=== PATIENT | female | born 1970 ===

== ENCOUNTER 2024-02-05 12:48 | Emergency (ER) | payer MEDICAID, SELFPAY ==
--- NOTE | ~2024-02-05 | XR_ITS ---
EXAMINATION: XR KNEE, RIGHT CLINICAL INFORMATION: Status post amputation. COMPARISON: None available. TECHNIQUE: Four views of the right knee. FINDINGS: There is amputation of right knee below the proximal tibia and fibula with a good appearing stump. No gas or soft tissue swelling seen. There is degenerative arthritic changes in lateral and patellofemoral compartments. No loose bodies or joint effusion seen. XR/XR knee RT 2V IMPRESSION: 1. Status post amputation below the proximal tibia and fibula with good appearing stump. No gas or soft tissue swelling seen. 2. 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
--- NOTE | 2024-02-05 13:06 | ED.EXTPRO ---
HPI - Extremity Problem General Chief complaint: General Medical Stated complaint: LEG PAIN, RECENT AMP. 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 She was supposed to go to her PCP today she notes she did hit her amputation site in the tub today and it was bleeding. She denies head strike she was in the ambulance and the bumps caused the pain to be severe. No fevers, purulent drainage, redness. MD Complaint: extremity pain Onset (ago): hour(s) (few) Pain Consistency: constant Location: right and lower extremity Quality: stabbing, sharp and constant Radiation: distal Relieving factors: nothing Exacerbating factors: nothing Associated symptoms: denies other symptoms Context: other (recent BKA but fell today) Related Data Allergies Allergy/AdvReac Type Severity Reaction Status Date / Time No Known Allergies Allergy Unknown Unverified 08/02/20 16:58 Review of Systems Review of Systems: Constitutional : No Fever, No Chills ENT/Mouth : No Ear Pain, No Hoarseness, No sore throat Eyes: No Eye Pain, No Swelling, No Redness, No Foreign Body Cardiovascular : No Chest Pain, No SOB Respiratory : No Cough, No Dyspnea Gastrointestinal : No Nausea, No Vomiting, No Diarrhea, No abdominal Pain Genitourinary : No Dysuria, No Hematuria Musculoskeletal : positive joint pain, No Myalgias, No Joint Swelling Skin : No Skin lacerations, No rash Neuro : No Weakness, No Numbness, No Loss of Consciousness, No Dizziness, No Headache All other systems reviewed and are negative [facility] Past Medical History Attestation statement: The following information was validated with the patient. Medical History (Updated 02/05/24 @ 14:56 by Olena Gamez DO) HTN (hypertension) DVT (deep vein thrombosis) in PVD (peripheral vascular disease) Diabetes Surgical History (Updated 02/05/24 @ 13:23 by Olena Gamez DO) Hx of BKA Social History Social History (Updated 02/05/24 @ 13:23 by Olena Gamez DO) Patient Tobacco Use Status: Tobacco use Unknown Advance Directives: Yes Advance Directives Information Provided: Yes Advance Directives on File: No Physical Exam Vital Signs: Vital Signs: Last Vital Signs Temp 98.0 F 02/05/24 14:13 Pulse 74 02/05/24 14:13 Resp 21 H 02/05/24 14:13 BP 108/64 02/05/24 14:13 Pulse Ox 99 02/05/24 14:13 O2 Del Method Room Air 02/05/24 14:13 BMI result Body Mass Index 44.1 Appearance: Alert. Oriented X3. wailing in pain moderate acute distress. Eyes: Pupils equal, round and reactive to light. ENT: Pharynx normal. Neck: Normal inspection. Neck supple. CVS: Normal heart rate and rhythm. Pulses normal. Respiratory: No respiratory distress. Breath sounds normal. Abdomen: Soft and nontender. Skin: Skin warm and dry. Normal skin color. Normal skin turgor. Extremities: No lower extremity edema. R BKA area no active bleedind no purulence no warmth or signs of infection contusion on distal R thigh incision is intact there is scant area of bleeding at middle of incision but there is no dehiscence Neuro: Oriented X 3. No motor deficit. No sensory deficit. Course Course Course Narrative: pain improved labs reassuring elevated plts but on xarelto Medications Administered Discontinued Medications Generic Name Dose Route Start Last Admin Trade Name Freq PRN Reason Stop Dose Admin Hydromorphone HCl 2 mg 02/05/24 12:52 02/05/24 13:07 Hydromorphone Hcl 2 Mg/Ml Vial IM 02/05/24 12:53 2 mg ONCE ONE Administration Protocol Medical Decision Making Medical Decision Making [facility] Narrative: 53 yo female with PMH of DM, PVD, HTN, DVT on xarelto s/p R BKA here with pain at BKA site after fall and isolated injury to the stump she denies headstrike has no headaches or neck pain will need labs, xray for trauma, IM dilaudid for pain. Differential Diagnosis Differential Diagnoses: The differential diagnosis associated with the presentation includes fracture, contusion, phantom limb pain Admission/Observation Consideration of admission/observation: Escalation of care including admission/observation considered feels better no dehiscence or fracture stable for DC Lab Data [facility] Lab Attestation statement: I reviewed the patient's lab results. 02/05/24 13:27 02/05/24 13:27 Labs: Lab Results 02/05/24 Range/Units 13:27 WBC 8.7 (4.8-10.8) X10*3/uL RBC 5.24 (4.20-5.50) X10*6/uL Hgb 11.8 L (12.0-16.0) g/dl Hct 38.7 (37.0-47.0) % MCV 73.9 L (80.0-98.0) fL MCH 22.5 L (27.0-33.0) pg MCHC 30.5 L (31.0-35.0) g/dl RDW 21.2 H (11.0-16.0) % Plt Count 500 H (160-400) X10*3/uL MPV 8.1 L (9.4-12.3) fL Immature Gran % (Auto) 0.2 (0.0-0.4) % Neut % (Auto) 75.1 H (45-73) % Lymph % (Auto) 19.3 L (20-40) % [place] % (Auto) 4.5 (2-11) % Eos % (Auto) 0.1 (0-4) % Baso % (Auto) 0.8 (0-2) % Lymph # (Auto) 1.7 (1.2-4.9) X10*3/uL [place] # (Auto) 0.4 (0.1-1.2) X10*3/uL Eos # (Auto) 0.0 (0.0-0.4) X10*3/uL Baso # (Auto) 0.1 (0.0-0.2) X10*3/uL Abs Immat Gran (auto) 0.02 (0.00-0.03) X10*3/uL Absolute Neuts (auto) 6.5 (2.0-8.3) x10*3/uL Absolute Nucleated RBC 0.000 (0.0-0.012) X10*3/uL Nucleated RBC % (auto) 0.0 (0.0-0.2) /100WBC ESR 16 (0-20) MM/HR Sodium 134 L (135-145) mmol/L Potassium 3.7 (3.3-5.1) mmol/L Chloride 100 (96-108) mmol/L Carbon Dioxide 21 L (22-29) mmol/L Anion Gap 17 (12-20) BUN 10 (9-16) mg/dL Creatinine 0.77 (0.5-1.4) mg/dL Estim Creat Clear Calc 99.5 Estimated GFR > 60 Random Glucose 236 H (60-115) mg/dL Calcium 9.1 (8.4-10.2) mg/dL C-Reactive Protein 0.66 H (< or = 0.50) mg/dL Independent Interpretation I performed an independent interpretation of an: Plain X-Ray (no fracture) Radiology Impression Discussion of test interpretation with radiology: I have reviewed the radiologist's reading. Independent Historian Clinical information obtained from an independent historian. History obtained from or confirmed by: EMS Discharge Plan Discharge Clinical Impression: Phantom limb pain Patient Disposition: Home, Self-Care Instructions: Contusion in Adults (ED) Additional Instructions: follow up with your surgeon, return for fevers, bleeding, increased pain your platelets were slightly elevated you are on a blood thinner but make sure your doctor monitors this. xray normal TECHNIQUE: Routine grayscale imaging of kidneys is performed. FINDINGS: RIGHT KIDNEY: 11.3 x 3.4 x 5.5 cm (SAG x AP x TRV). The kidney is normal in size, contour, and echogenicity. Renal cortical thickness is normal. No calculi or focal parenchymal lesions. No hydronephrosis. LEFT KIDNEY: 11.2 x 4.6 x 5.7 cm (SAG x AP x TRV). The kidney is normal in size, contour, and echogenicity. Renal cortical thickness is normal. No calculi or focal parenchymal lesions. No hydronephrosis.
[2024-02-05] MEDS: HYDROmorphone HCl 2 MG/ML VIAL IM (13:07)
[2024-02-05 13:09] VITALS: BP 126/73; BP 166/84; PULSE 103; PULSE 121; RESP 26; TEMP 36.7; O2SAT 97; O2SAT 98; BMI 44.1
--- NOTE | 2024-02-05 13:15 | PC.NURSE ---
MEDICATED FOR PAIN CHARTED
[2024-02-05 13:33] LABS: MANUAL DIFF FLAG NO
[2024-02-05 13:35] LABS: Basophils Absolute Auto 0.1 X10*3/uL (0.0-0.2); Basophils Percent Auto 0.8 % (0-2); Eosinophils Percent Auto 0.1 % (0-4); Hematocrit 38.7 % (37.0-47.0); Hemoglobin 11.8 g/dl (12.0-16.0); Imm Gran Abs Auto 0.02 X10*3/uL (0.00-0.03); Imm Gran Pct Auto 0.2 % (0.0-0.4); Lymphocytes Absolute Auto 1.7 X10*3/uL (1.2-4.9); Lymphocytes Percent Auto 19.3 % (20-40); Mean Corpuscular HGB Conc 30.5 g/dl (31.0-35.0); Mean Corpuscular Hemoglobin 22.5 pg (27.0-33.0); Mean Corpuscular Volume 73.9 fL (80.0-98.0); Mean Platelet Volume 8.1 fL (9.4-12.3); Monocytes Absolute Auto 0.4 X10*3/uL (0.1-1.2); Monocytes Percent Auto 4.5 % (2-11); Neutrophils Absolute Auto 6.5 x10*3/uL (2.0-8.3); Neutrophils Percent Auto 75.1 % (45-73); Platelet Count 500 X10*3/uL (160-400); Red Blood Count 5.24 X10*6/uL (4.20-5.50); Red Cell Distribution Width 21.2 % (11.0-16.0); White Blood Count 8.7 X10*3/uL (4.8-10.8)
[2024-02-05 13:46] LABS: Anion Gap 17 (12-20); Blood Urea Nitrogen 10 mg/dL (9-16); C Reactive Protein 0.66 mg/dL (< or = 0.50); Calcium 9.1 mg/dL (8.4-10.2); Carbon Dioxide 21 mmol/L (22-29); Chloride 100 mmol/L (96-108); Creatinine Clr Calc Pharmacy 99.5; Estimated Glomerular Filt Rate > 60; Glucose Random 236 mg/dL (60-115); Potassium 3.7 mmol/L (3.3-5.1); Sodium 134 mmol/L (135-145)
[2024-02-05 14:13] VITALS: BP 108/64; PULSE 74; RESP 21; TEMP 36.7; O2SAT 99
[2024-02-05 14:14] LABS: Erythrocyte Sedimentation Rate 16 MM/HR (0-20)
[2024-02-05] MEDS: oxyCODONE HCl Immed Release 5 MG TABLET 10 MG PO (15:22)
== END 2024-02-05 20:31 | disposition home or self-care (01) ==
PROVIDERS: Emergency Provider Emergency Medicine; PCP Family Medicine
DX: G54.6 Phantom limb syndrome with pain (principal); E11.9 Type 2 diabetes mellitus without complications; I10 Essential (primary) hypertension; Z86.718 Personal history of other venous thrombosis and embolism; Z79.01 Long term (current) use of anticoagulants; Z89.511 Acquired absence of right leg below knee
CPT/HCPCS: 36415; 73560; 80048; 85025; 85652; 86140; 96372; 99283; 99284; J1170

== ENCOUNTER 2024-03-24 15:24 | Outpatient (REF) | payer MEDICAID, SELFPAY ==
[2024-03-24 16:15] LABS: MANUAL DIFF FLAG NO
[2024-03-24 16:21] LABS: Basophils Percent Auto 0.7 % (0-2); Eosinophils Absolute Auto 0.1 X10*3/uL (0.0-0.4); Eosinophils Percent Auto 1.4 % (0-4); Hemoglobin 10.4 g/dl (12.0-16.0); Imm Gran Abs Auto 0.03 X10*3/uL (0.00-0.03); Imm Gran Pct Auto 0.5 % (0.0-0.4); Lymphocytes Absolute Auto 1.8 X10*3/uL (1.2-4.9); Lymphocytes Percent Auto 31.2 % (20-40); Mean Corpuscular HGB Conc 29.7 g/dl (31.0-35.0); Mean Corpuscular Hemoglobin 21.9 pg (27.0-33.0); Mean Corpuscular Volume 73.8 fL (80.0-98.0); Mean Platelet Volume 8.7 fL (9.4-12.3); Monocytes Absolute Auto 0.4 X10*3/uL (0.1-1.2); Monocytes Percent Auto 6.1 % (2-11); Neutrophils Absolute Auto 3.6 x10*3/uL (2.0-8.3); Neutrophils Percent Auto 60.1 % (45-73); Platelet Count 414 X10*3/uL (160-400); Red Blood Count 4.74 X10*6/uL (4.20-5.50); Red Cell Distribution Width 16.1 % (11.0-16.0); White Blood Count 5.9 X10*3/uL (4.8-10.8)
[2024-03-24 16:42] LABS: Alanine Aminotransferase 8 U/L (0-31); Albumin Level 3.6 g/dL (3.5-5.0); Alkaline Phosphatase 99 U/L (39-117); Anion Gap 15 (12-20); Aspartate Amino Transferase 12 U/L (5-31); Bilirubin Total 0.5 mg/dL (0.0-1.0); Blood Urea Nitrogen 12 mg/dL (9-16); Calcium 9.2 mg/dL (8.4-10.2); Carbon Dioxide 25 mmol/L (22-29); Chloride 103 mmol/L (96-108); Estimated Glomerular Filt Rate > 60; Glucose Random 196 mg/dL (60-115); Potassium 4.3 mmol/L (3.3-5.1); Sodium 139 mmol/L (135-145); Total Protein 7.1 g/dL (6.5-8.0)
== END 2024-03-24 15:25 | disposition home or self-care (01) ==
LOC: HO.HHCL 15:24
PROVIDERS: Visit Provider Internal Medicine
DX: I74.10 Embolism and thrombosis of unspecified parts of aorta (principal); E11.69 Type 2 diabetes mellitus with other specified complication; Z79.4 Long term (current) use of insulin
CPT/HCPCS: 36415; 80053; 85025

== ENCOUNTER 2024-05-25 10:23 | Outpatient (REF) | payer MEDICAID, SELFPAY ==
[2024-05-25 10:57] LABS: MANUAL DIFF FLAG NO
[2024-05-25 11:12] LABS: Basophils Absolute Auto 0.1 X10*3/uL (0.0-0.2); Basophils Percent Auto 1.3 % (0-2); Eosinophils Absolute Auto 0.1 X10*3/uL (0.0-0.4); Eosinophils Percent Auto 2.2 % (0-4); Hematocrit 36.5 % (37.0-47.0); Hemoglobin 10.6 g/dl (12.0-16.0); Imm Gran Abs Auto 0.01 X10*3/uL (0.00-0.03); Imm Gran Pct Auto 0.2 % (0.0-0.4); Lymphocytes Absolute Auto 1.7 X10*3/uL (1.2-4.9); Lymphocytes Percent Auto 36.1 % (20-40); Mean Corpuscular Hemoglobin 20.3 pg (27.0-33.0); Mean Corpuscular Volume 69.8 fL (80.0-98.0); Monocytes Absolute Auto 0.4 X10*3/uL (0.1-1.2); Neutrophils Absolute Auto 2.4 x10*3/uL (2.0-8.3); Neutrophils Percent Auto 52.2 % (45-73); Platelet Count 349 X10*3/uL (160-400); Red Blood Count 5.23 X10*6/uL (4.20-5.50); Red Cell Distribution Width 20.1 % (11.0-16.0); White Blood Count 4.7 X10*3/uL (4.8-10.8)
[2024-05-25 11:46] LABS: Estimated Average Glucose 180 mg/dL; Hemoglobin A1c % 7.9 % (<6.0)
[2024-05-25 14:16] LABS: Alanine Aminotransferase 12 U/L (0-31); Albumin Level 3.7 g/dL (3.5-5.0); Alkaline Phosphatase 96 U/L (39-117); Anion Gap 11 (12-20); Aspartate Amino Transferase 14 U/L (5-31); Bilirubin Direct 0.2 mg/dL (0.0-0.5); Bilirubin Total 0.7 mg/dL (0.0-1.0); Blood Urea Nitrogen 14 mg/dL (9-16); Calcium 9.5 mg/dL (8.4-10.2); Carbon Dioxide 28 mmol/L (22-29); Chloride 104 mmol/L (96-108); Cholesterol 140 mg/dL (<200); Estimated Glomerular Filt Rate > 60; Ferritin 15 ng/mL (10-250); Glucose Random 180 mg/dL (60-115); HDL Cholesterol 44 mg/dL (>40); Iron 27 mcg/dL (30-160); LDL Cholesterol Calculated 73 mg/dL (<100); Percent Iron Saturation 9 % (15-50); Potassium 4.1 mmol/L (3.3-5.1); Sodium 139 mmol/L (135-145); TSH reflex Free T4 1.61 uIU/mL (0.32-4.0); Total Iron Binding Capacity 315 mcg/dL (228-428); Total Protein 7.3 g/dL (6.5-8.0); Triglycerides 118 mg/dL (<150); Unsaturated Iron Binding 288 ug/dL
[2024-05-25 14:26] LABS: Vitamin B12 261 pg/mL (200-900)
== END 2024-05-25 10:24 | disposition home or self-care (01) ==
LOC: HO.HHCL 10:23
PROVIDERS: Visit Provider Family Medicine
DX: D50.9 Iron deficiency anemia, unspecified (principal); E78.5 Hyperlipidemia, unspecified; E11.51 Type 2 diabetes mellitus with diabetic peripheral angiopathy without gangrene; Z79.4 Long term (current) use of insulin; G47.33 Obstructive sleep apnea (adult) (pediatric); E66.01 Morbid (severe) obesity due to excess calories
CPT/HCPCS: 36415; 80048; 80061; 80076; 82607; 82728; 83036; 83540; 84443; 85025

== ENCOUNTER 2025-09-07 11:20 | Outpatient (REF) | payer MEDICAID, SELFPAY ==
--- OUTSIDE RECORDS SUMMARY | 2025-09-07 09:45 | XMS_ITS | Encounter Summary ---
Author Organization [employer] Address [address] [place] [address] Care Team Providers [facility] Interviews Intern Name Role Phone Nicole Montoya MD Primary Care Provider [phone]- [phone] Angy De La Fuente PharmD Unavailable [phone] Juan Carlos Ma MD Unavailable [phone] Reason for Referral * Hospital - Outpatient (Routine) - Pending Review Specialty Diagnoses / Procedures Referred By Andres moncada Referred To Contact Diagnoses Obstructive sleep apnea of adult Procedures Home sleep test Nicole Montoya MD [address] [place] [id number] Phone: tel: fax: Sleep Medicine Service [facility] [address], [address] [place] [address] Phone: tel: fax: Referral ID Status Reason Start Date Expiration Date V isits Requested Visits Authorized [id number] Pending Review 09/07/2025 09/07/2026 1 1 * Imaging (Routine) - Closed Specialty Diagnoses / Procedures Referred By Andres moncada Referred To Contact Radiology Diagnoses Encounter for screening mammogram for malignant neoplasm of breast Procedures BI Mammogram Screening Tomosynthesis Bilateral Nicole Montoya MD [address] [place] [id number] Phone: tel: fax: [address] Phone: tel: fax: Referral ID Status Reason Start Date Expiration Date Visits Re quested Visits Authorized [id number] Closed 09/07/2025 09/07/2026 1 1 Reason for Visit * Reason Comments Follow-up Encounter Details Date Type Department Care Team (Late st Contact Info) Description 09/07/2025 9:45 AM EDT Office Visit [facility] [address] [place] [address] Nicole Montoya MD [address] [place] [address] Obstructive sleep apnea of adult (Primary Dx); Dyslipidemia; Bipolar affective disorder, remission status unspecified (CMS/HCC) ([facility]); Abnormal mammogram; Hx of right BKA (CMS/HCC) ([facility]); Iron deficiency anemia, unspecified iron deficiency anemia type; Morbid obesity with BMI of 50.0-59.9, adult (CMS/HCC) ([facility]); Non compliance with medical treatment; Peripheral vascular disease (CMS/HCC); S/P amputation of lesser toe, left ([facility]/HCC); Type 2 diabetes mellitus with diabetic peripheral angiopathy without gangrene, with long-term current use of insulin ([facility]); Vitamin D deficiency; Encounter for immunization; Encounter for screening mammogram for malignant neoplasm of breast; Screening for colon cancer Social History Tobacco Use Types Packs/Day Years Used Date Smoking Tobacco: Never Smokeless Tobacco: Never Alcohol Use Standard Drinks/Week Comments Never 0 (1 standard drink = 0.6 oz pur e alcohol) Alcohol Answer Date Recorded Frequency of Alcohol Consumption Not on file 05/25/2024 Average Number of Drinks Not on file 024 Frequency of Binge Drinking Not on file 05/16 Score 0 05/25/2024 Depression Answer Date Recorded Patient Health Questionnaire-9 Score 7 09/07/2025 Patient Health Questionnaire-9 Score 7 09/07/2025 Last PHQ-9: Questionnaire Data Not on file 1 Housing Stability Answer Date Recorded What is your housing situation today? I do not have housing (Staying with others, in a hotel, in a longterm, living outside on the street, on a beach, in a car, or in a park 09/07/[address] you li ve. Do you have problems with any of the following? None of the above 09/07/2025 Food Insecurity Answer Date Recorded Within the past 12 months, y ou worried that your food would run out before you got money to buy more: Sometimes True 2024 Within the past 12 months,th e food you bought just didn't last and you didn't have enough money to get more: Sometimes True 09/07/2025 Transportation Answer Date Recorded In the past 12 months, has l ack of transportation kept you from medical appts, meetings, work or from getting things needed for daily living? Yes, it has kept me from non-medical meetings, work, or getting things that I need 09/07/2025 Utilities Answer Date Recorded In the past 12 months, has t he electric, gas, oil or water company threatened to shut off services in your home? No 09/07/2025 Depression Answer Date Recorded Patient Health Questionnaire-2 Score 2 09/07/2025 Internet Access Answer Date Recorded Internet Access Q1 Yes 09/07/2025 Internet Access Q2 Not on file 09/07/2025 Comments Unknown Sex and Gender Information Value Date Recorded Sex Assigned at Female 09/15/2022 10:16 AM EDT Legal Sex Female 10:16 AM EDT Gender Identity Female 09/15/2022 10:16 AM EDT Sexual Orientation Choose not to disclose 2021 10:16 AM EDT documented as of this encounter Last Filed Vital Signs Vital Sign Reading Time Taken Comments Blood Pressure 139/60 09/07/2025 10:37 AM EDT Pulse 92 09/07/2025 10:37 AM EDT Temperature 36.3 C (97.3 F) 09/07/2025 10:37 AM EDT Respiratory Rate 20 09/07/2025 10:37 AM EDT Oxygen Saturation - - Inhaled Oxygen Concentration - - Weight 124 kg (273 lb) 09/07/2025 10:37 AM EDT Height 157.5 cm (5' 2 ) 09/07/2025 10:37 AM EDT Body Mass Index 49.93 09/07/2025 10:37 AM EDT documented in this encounter Functional Status * Over the past 2 weeks, how often have you been bothered by any of the following problems? Question Answer Date of Assessment Author Patient Health Questionnaire -2 Score 2 09/07/2025 10:38 AM Rhys Rodas MA * Little interest or pleasure in doing things Answer Date of Assessment Author Several days 09/07/2025 10:38 AM Roberto Rodas MA * Feeling down, depressed, or hopeless Answer Date of Assessment Author Several days 09/07/2025 10:38 AM Roberto Rodas MA * Trouble falling or staying asleep, or sleeping too much Answer Date of Assessment Author Several days 09/07/2025 10:38 AM Roberto Rodas MA * Feeling tired or having little energy Answer Date of Assessment Author Several days 09/07/2025 10:38 AM Roberto Rodas MA * Poor appetite or overeating Answer Date of Assessment Author Several days 09/07/2025 10:38 AM Roberto Rodas MA * Feeling bad about yourself - or that you are a failure or have let yourself or your family down Answer Date of Assessment Author Several days 09/07/2025 10:38 AM Roberto Rodas MA * Trouble concentrating on things, such as reading the newspaper or watching television Answer Date of Assessment Author Several days 09/07/2025 10:38 AM Roberto Rodas MA * Moving or speaking so slowly that other people could have noticed? Or the opposite - being so fidgety or restless that you have been moving around a lot more than usual. Answer Date of Assessment Author Not at all 09/07/2025 10:38 AM Roberto Rodas MA * Thoughts that you would be better off or hurting yourself in some way Answer Date of Assessment Author Not at all 09/07/2025 10:38 AM Roberot Rodas MA * Patient Health Questionnaire-9 Score Answer Date of Assessment Author 7 09/07/2025 10:38 AM Roberto Roads MA * How difficult have these problems made it for you to do your work, take care of things at home, or get along with other people? Answer Date of Assessment Author Somewhat difficult 09/07/2025 10:38 AM EDT Roberto García MA * Over the last 2 weeks, how often have you been bothered by any of the following problems? Question Answer Date of Assessment Author Feeling nervous, anxious, or on edge 1 09/07/2025 10:32 AM EDT Rhys Pearson MA Not being able to stop or control worrying 2 09/07/2025 10:32 AM EDRhys Cates MA Worrying too much about different things 1 09/07/2025 10:32 AM Rhys Rodas MA Trouble relaxing 1 09/07/2025 10:32 AM YURIT Roberto Pearson MA Being so restless that it is hard to sit still 0 09/07/2025 10:32 AM Rhys Rodas MA Becoming easily annoyed or irritable 0 09/07/2025 10:32 AM EDT Rhys Pearson MA Feeling afraid as if somethi ng awful might happen 1 09/07/2025 10:32 AM Rhys Rodas MA RICARDO-7 Total Score 6 09/07/2025 10:32 AM Roberto Rodas MA documented as of this encounter Progress Notes * Nicole Montoya MD - 09/07/2025 9:45 AM EDT Virgil Oseguera is a 55 y.o. 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 Interim history: Last Visit with PCP 05/25/24, multiple no shows Current concerns: She would like mor [employer] hours Wheelchair Needs - Difficulty with current wheelchair, lacks support in the back, risk of falling when descending - Has been using current wheelchair for years Mobility Challenges - Lives on first floor, but must climb six steps to enter w - Difficulty leaving home due to mobility limitations Pain - Reports significant pain in a specific area ( Eso me duele ah?? mucho ) Sleep Issues - Stays alone from 2:00 AM to 4:00 PM - No symptoms causing dreams reported - No sleep-related pain reported Social History Living situation: Employment/Education: Diet/exercise: At least 150 minutes of moderate-intensity physical activity per week; Well balanceddiet Tobacco: denied Drugs: none Alcohol: No Sexuality: Denies current sexual activity Suicide/Depression: The patient denies any present symptoms of depression or anxiety. Review of Systems Constitutional: Negative for fatigue, fever and unexpected weight change. Respiratory: Negative for cough. Cardiovascular: Negative for chest pain. Gastrointestinal: Negative for abdominal pain. Genitourinary: Negative for difficulty urinating. Current Medications[1] Allergies[2] Medical History[3] Surgical History[4] Family History[5] Objective Visit Vitals BP 139/60 (BP Location: Right arm, Patient Position: Lying, BP Cuff Size: Large adult) Pulse 92 Temp 97.3 ??F (36.3 ??C) (Oral) Resp 20 Ht 5' 2 (1.575 m) Wt 273 lb (124 kg) BMI 49.93 kg/m?? Smoking Status Never BSA 2.33 m?? Physical Exam Constitutional: Appearance: Normal appearance. Cardiovascular: Rate and Rhythm: Normal rate and regular rhythm. Heart sounds: Normal heart sounds. Pulmonary: Effort: Pulmonary effort is normal. Breath sounds: Normal breath sounds. Abdominal: Tenderness: There is no abdominal tenderness. Musculoskeletal: Cervical back: Normal range of motion and neck supple. Left foot: Decreased capillary refill. Normal range of motion. No bunion or Charcot foot. Normal pulse. Comments: Right AKA Decreased sensation left foot Right Lower Extremity: Right leg is amputated above knee. Neurological: General: No focal deficit present. Mental Status: She is alert. Psychiatric: Behavior: Behavior normal. 55 y.o. female physical exam. Assessment & Plan Obstructive sleep apnea of adult -Home sleep study 05/06/2017 revealed severe sleep apnea/hypopnea -CPAP titration ordered via pulmonology due severity of symptoms, sleep study results and likely obesity hypoventilation. Patient did not follow through -home sleep study ordered 09/07/25 Orders: Home sleep test; Future Dyslipidemia Lab Results Component Value Date CHOL 140 05/25/2024 TRIG 118 05/25/2024 HDL 44 05/25/2024 LDLCHOLCAL 73 05/25/2024 -continue lifestyle modification Orders: Hepatic Function Panel; Future Lipid Panel, Standard; Future Bipolar affective disorder, remission status unspecified (CMS/HCC) ([facility]) Stable followed by psychiatry Abnormal mammogram Hx of right BKA (CMS/HCC) ([facility]) Has wheelchair, Stump clean and dry without lesions Iron deficiency anemia, unspecified iron deficiency anemia type Orders: CBC auto differential; Future Ferritin; Future TSH with Reflex to Free T4; Future Iron And Total Iron Binding Capacity; Future Vitamin B12 (Cobalamin) and Folate Panel, Serum; Future Morbid obesity with BMI of 50.0-59.9, adult (CMS/HCC) ([facility]) Dietary Recommendations: Fruits, vegetables, whole grains, protein foods, and fat-free or low-fat dairy products are healthychoices. Eat different types of protein foods in your diet. This can include seafood, lean meats, poultry, beans, peas, lentils, nuts, seeds, soy products, and eggs. Limit foods and beverages higher in added sugars, saturated fat, and sodium. Exercise Recommendations: At least 150 minutes of moderate-intensity physical activity per week, or an equivalent combinationof moderate- and vigorous-intensity activity Non compliance with medical treatment Peripheral vascular disease (CMS/[facility]) Patient s/p right BKA and left 4th toe amputation Has a follow up with Vascular surgery at [facility] [place]24 For now continue Plavix and Xarelto I contacted [facility] pt is not on Aspirin S/P amputation of lesser toe, left ([facility]) Type 2 diabetes mellitus with diabetic peripheral angiopathy without gangrene, with long-term current use of insulin ([facility]) Orders: POCT glycosylated hemoglobin (Hgb A1c) POCT glucose manually resulted Albumin, Random Urine W/Creatinine; Future Basic Metabolic Panel; Future Vitamin D deficiency Orders: Vitamin D, 25-Hydroxy, Total, Immunoassay; Future Encounter for immunization Orders: TDAP VACCINE 7 yrs + FLU VACCINE TRIVALENT [id number] (Fluarix) 19 yrs + HEPATITIS B VACCINE ADULT 20 yrs + HEPATITIS A VACCINE ADULT 19 yrs + Encounter for screening mammogram for malignant neoplasm of breast Orders: BI Mammogram Screening Tomosynthesis Bilateral; Future Screening for colon cancer Orders: Cologuard?? colon cancer screening Physical exam -Normal growth and development. -Anticipatory guidance discussed. -Preventative care / harm reduction discussed. No follow-ups on file. [1] Current Outpatient Medications: acetaminophen (Tylenol) 325 MG tablet, TAKE 2 TABLETS BY MOUTH EVERY 8 HOURS, Disp: 30 tablet, Rfl:0 aspirin (Aspirin Low Dose) 81 MG EC tablet, Take 81 mg by mouth., Disp: , Rfl: atorvastatin (Lipitor) 40 MG tablet, TAKE 1 TABLET BY ORAL ROUTE EVERY DAY AT BEDTIME, Disp: 90 tablet, Rfl: 3 benztropine (Cogentin) 1 MG tablet, Take by mouth 2 times daily. Per psychiatry, Disp: , Rfl: bisacodyl (Dulcolax) 10 MG suppository, Insert into the rectum., Disp: , Rfl: Blood Glucose Monitoring Suppl (FreeStyle Lite) w/Device kit, 1 each every 8 (eight) hours., Disp: 1 kit, Rfl: 0 cholecalciferol (Vitamin D3) 25 MCG (1000 UT) tablet, TAKE 1 TABLET BY MOUTH EVERY DAY, Disp: 90 tablet, Rfl: 0 Continuous Glucose Master Rigger (FreeStyle Mitchell 2 Seneca) device, Scan sensor every 8 hours, Disp: 1 each, Rfl: 0 Continuous Glucose Sensor (FreeStyle Mitchell 2 Plus Sensor) misc, 1 each every 8 (eight) hours. Checkblood sugar every 8 hours, Disp: 2 each, Rfl: 11 Diclofenac Sodium 1 % gel, Apply 1 Application topically if needed each day (pain in foot)., Disp: 50 g, Rfl: 0 ferrous sulfate 325 (65 Fe) MG tablet, Take 325 mg by mouth Once per day., Disp: , Rfl: FreeStyle lancets, 1 each by Other route 3 times daily. TEST BLOOD SUGAR 3 TIMES A DAY, Disp: 100 each, Rfl: 11 FREESTYLE LITE test strip, Test blood sugar 3 times daily, Disp: 100 each, Rfl: 11 gabapentin (Neurontin) 300 MG capsule, TAKE 1 CAPSULE BY MOUTH 3 (THREE) TIMES A DAY, Disp: 90 capsule, Rfl: 3 glucose 4 g chewable tablet, Use as directed for low blood sugar, Disp: 50 tablet, Rfl: 11 glucose blood (FreeStyle Precision Christos Test) test strip, Test blood sugar every 8 hours as directed, Disp: 100 each, Rfl: 11 insulin aspart (NovoLOG FLEXPEN) 100 UNIT/ML pen, Inject subcutaneously twice daily 12 units beforebreakfast and 14 units before dinner. Do not use if skipping meal. To be administered by [facility], Disp:15 mL, Rfl: 3 insulin glargine (Lantus SoloStar) 100 UNIT/ML pen, Inject subcutaneously 62 units twice daily. To be administered by [facility], Disp: 15 mL, Rfl: 3 insulin pen needle (True Comfort Pen Bixby) 31G x 5 mm [facility], Use as directed with insulin administration four times daily, Disp: 150 each, Rfl: 11 lamoTRIgine (LaMICtal) 100 MG tablet, Take by mouth. Per psychiatry, Disp: , Rfl: pantoprazole (ProtoNix) 20 MG EC tablet, TAKE 1 TABLET BY MOUTH EVERY DAY, Disp: 90 tablet, Rfl: 0 polyethylene glycol, PEG, 3350 (Glycolax) 17 GM/SCOOP powder, Take 17 g by mouth Once per day., Disp: , Rfl: rivaroxaban (Xarelto) 20 MG tablet, TAKE 1 TABLET BY MOUTH WITH EVENING MEAL. TAKE WITH FOOD., Disp: 90 tablet, Rfl: 3 senna-docusate (Stormy-Colace) 8.6-50 MG tablet, Take 1 tablet by mouth Once per day., Disp: , Rfl: venlafaxine XR (Effexor XR) 75 MG 24 hr capsule, take one (1) capsule by mouth every morning, Disp:, Rfl: [2] Allergies Allergen Reactions Metformin Discontinued for DKA hx while on med Trulicity [Dulaglutide] Discontinued for pancreatitis [3] Past Medical History: Diagnosis Date Abdominal pain 01/28/2024 Patient complains of chronic abdominal pains since end of December 2023 when she had right BKA and intra-abdominal surgery, possibly aortic endarterectomy. - Cause was unclear. CT abdomen pelvis with IV contrast without any acute pathology. LFTs, lipase normal, patient did have lactic acidosis on presentation to ER 42-24 which improved with IV fluids -Admitted a few times for this, most recently Aortic mural thrombus (CMS/HCC) (HCC) 12/23/2023 Pt admitted to [facility] and incidentally noted to have blue toe. 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 Pt underwent exploratory laparotomy and infrarenal aortic thromboendartectomy 12/21/2023. Bipolar disorder (HCC) 06/10/2012 -Please see med list for pt's current medications. Followed by psychiatrist, Yrn Velez and therapy. Pt has extensive history of psychiatric hospitalizations making it difficult for her to managechronic conditions. She has extensive wrap around services with [facility] and [facility]. Diabetes mellitus, type 2 (HCC) 06/10/2012 Poorly controlled. In past she was hospitalized monthly with DKA an psych crisis. Psych has been stable > 7 years with [facility] services until 2023 when she was hospitalized multiple times for abdominal pain, treated limb resulting in right BKA. She does not take medications unless administered by a nurse. She is not adherent to a diabetic diet. Diabetes is controlled. - Lab Results Dyslipidemia 06/10/2012 Lab Results Component Value Date CHOL 140 05/25/2024 TRIG 118 05/25/2024 HDL 44 05/25/2024 LDLCHOLCAL 73 05/25/2024 -continue lifestyle modification Gastroparesis 06/10/2012 Hx of right BKA (CMS/HCC) (HCC) 11/04/2024 Iron deficiency anemia 02/06/2022 Lab Results Component Value Date FERRITIN 15 05/25/2024 HGB 10.6 (L) 05/25/2024 HGB 10.4 (L) 03/24/2024 HGB 14.0 08/10/2020 HGB 14.0 08/10/2020 HGB 14.0 08/10/2020 HGB 14.0 08/10/2020 HGB 14.0 08/10/2020 HEMATOCRIT 45.0 08/10/2020 INDIO Liver infarct 09/26/2024 -followed by vascular surgery at [facility] -PAD with near thrombotic occlusion of the aorta and bilateral critical limb ischemia now s/p open aortic enterectomy on 12/21/23 and right BKA on 12/31/23. -she was discharged on Plavix and Xarelto then no showed to her post op appointment. -presented to [facility] and admitted for abdominal pain. CT 01/17/24 revealed large left lobe hepatic in Non compliance with medical treatment 02/11/2023 We spoke with nurse Francesca with [facility]. Also spoke with Rashaun La to let them know to please do cologaurd. 7/10/24 - Pt agrees to everything today, but has in the past declined later on. Obstructive sleep apnea of adult 02/06/2022 -Home sleep study 05/06/2017 revealed severe sleep apnea/hypopnea -CPAP titration ordered via pulmonology due severity of symptoms, sleep study results and likely obesity hypoventilation. Patient did not follow through. Peripheral vascular disease (CMS/HCC) 03/24/2024 -followed by vascular surgery at [facility] -PAD with near thrombotic occlusion of the aorta and bilateral critical limb ischemia now s/p open aortic enterectomy on 12/21/23 and right BKA on 12/31/23. -she was discharged on Plavix and Xarelto then no showed to her post op appointment. -presented to [facility] and admitted for abdominal pain. CT revealed left lobe hepatic infart which ap [4] Past Surgical History: Procedure Laterality Date LEG AMPUTATION Right 12/31/2023 right BKA TOE AMPUTATION Left 03/16/2024 [5] Family History Problem Relation Name Age of Onset Diabetes Mother Developmental delay Daughter documented in this encounter Miscellaneous Notes * Assessment & Plan Note - Nicole Montoya MD - 09/07/2025 9:45 AM EDT Associated Problem(s): Obstructive sleep apnea of adult -Home sleep study 05/06/2017 revealed severe sleep apnea/hypopnea -CPAP titration ordered via pulmonology due severity of symptoms, sleep study results and likely obesity hypoventilation. Patient did not follow through -home sleep study ordered 09/07/25 Orders: Home sleep test; Future * Assessment & Plan Note - Nicole Montoya MD - 09/07/2025 9:45 AM EDT Associated Problem(s): Dyslipidemia Lab Results Component Value Date CHOL 140 05/25/2024 TRIG 118 05/25/2024 HDL 44 05/25/2024 LDLCHOLCAL 73 05/25/2024 -continue lifestyle modification Orders: Hepatic Function Panel; Future Lipid Panel, Standard; Future * Assessment & Plan Note - Nicole Montoya MD - 09/07/2025 9:45 AM EDT Associated Problem(s): Bipolar disorder (HCC) Stable followed by psychiatry * Assessment & Plan Note - Nicole Montoya MD - 09/07/2025 9:45 AM EDT Associated Problem(s): Abnormal mammogram * Assessment & Plan Note - Nicole Montoya MD - 09/07/2025 9:45 AM EDT Associated Problem(s): Hx of right BKA (CMS/HCC) (HCC) (Resolved 09/07/2025) Has wheelchair, Stump clean and dry without lesions * Assessment & Plan Note - Nicole Montoya MD - 09/07/2025 9:45 AM EDT Associated Problem(s): Iron deficiency anemia Orders: CBC auto differential; Future Ferritin; Future TSH with Reflex to Free T4; Future Iron And Total Iron Binding Capacity; Future Vitamin B12 (Cobalamin) and Folate Panel, Serum; Future * Assessment & Plan Note - Nicole Montoya MD - 09/07/2025 9:45 AM EDT Associated Problem(s): Morbid obesity with BMI of 50.0-59.9, adult (CMS/HCC) (HCC) Dietary Recommendations: Fruits, vegetables, whole grains, protein foods, and fat-free or low-fat dairy products are healthychoices. Eat different types of protein foods in your diet. This can include seafood, lean meats, poultry, beans, peas, lentils, nuts, seeds, soy products, and eggs. Limit foods and beverages higher in added sugars, saturated fat, and sodium. Exercise Recommendations: At least 150 minutes of moderate-intensity physical activity per week, or an equivalent combinationof moderate- and vigorous-intensity activity * Assessment & Plan Note - Nicole Montoya MD - 09/07/2025 9:45 AM EDT Associated Problem(s): Non compliance with medical treatment * Assessment & Plan Note - Nicole Montoya MD - 09/07/2025 9:45 AM EDT Associated Problem(s): Peripheral vascular disease ([facility]) Patient s/p right BKA and left 4th toe amputation Has a follow up with Vascular surgery at [facility] [place]/01/2024 For now continue Plavix and Xarelto I contacted [facility] pt is not on Aspirin * Assessment & Plan Note - Nicole Montoya MD - 09/07/2025 9:45 AM EDT Associated Problem(s): S/P amputation of lesser toe, left (CMS/HCC) * Assessment & Plan Note - Nciole Montoya MD - 09/07/2025 9:45 AM EDT Associated Problem(s): Type 2 diabetes mellitus with diabetic peripheral angiopathy without gangrene, with long-term current use of insulin (HCC) Orders: POCT glycosylated hemoglobin (Hgb A1c) POCT glucose manually resulted Albumin, Random Urine W/Creatinine; Future Basic Metabolic Panel; Future * Assessment & Plan Note - Nicole Montoya MD - 09/07/2025 9:45 AM EDT Associated Problem(s): Vitamin D deficiency Orders: Vitamin D, 25-Hydroxy, Total, Immunoassay; Future documented in this encounter Plan of Treatment Upcoming Encounters Date Type Department Care Team (Late st Contact Info) Description 09/22/2025 2:00 PM EST Telemedicine [facility] [address] [place] [address] Angy De La Fuente, PharmD [address] [place] [address] Scheduled Orders Name Type Priority Associated Diagnoses Orde r Schedule Albumin, Random Urine W/Creatinine Lab Routine Type 2 diabetes mellitus with diabetic peripheral angiopathy without gangrene, with long-term current use of insulin (HCC) Expected: 09/07/2025 (Approximate), Expires: 09/07/2026 Basic Metabolic Panel Lab Routine Type 2 diabetes mellitus with diabetic peripheral angiopathy without gangrene, with long-term current use of insulin (HCC) Expected: 09/07/2025 (Approximate), Expires: 09/07/2026 CBC auto differential Lab Routine Iron deficiency anemia, unspecified iron deficiency anemia type Expected: 09/07/2025 (Approximate), Expires: 09/07/2026 Vitamin D, 25-Hydroxy, Total, Immunoassay Lab Routine Vitamin D deficiency Expected: 09/07/2025 (Approximate), Expires: 09/07/2026 BI Mammogram Screening Tomosynthesis Bilateral Imaging Routine Encounter for screening mammogram for malignant neoplasm of breast Expected: 09/07/2025, Expires: 11/07/2026 Home sleep test Sleep Center Routine Obstructive sleep apnea of adult Expected: 09/07/2025 (Approximate), Expires: 09/07/2026 Cologuard colon cancer screening Lab Routine Screening for colon cancer Ordered: 09/07/2025 documented as of this encounter Goals Goal Patient Goal Type Associated Problems Recent Progress Patient-Stated? Author Blood Pressure < 140/90 Blood Pressure 139/60(2024 10:37 AM EDT) No Angy Gutierrez PharmBrigitte Hemoglobin A1c < 8 Result Component 9(09/07/2025 11:30 AM EDT) No Angy Gutierrez PharmD documented as of this encounter Procedures Procedure Name Priority Date/Time Associated Diagnosis Comments VITAMIN B12/FOLATE, SERUM PANEL Routine 09/07/2025 11:30 AM EDT Iron deficiency anemia, unspecified iron deficiency anemia type TSH W/REFLEX TO FT4 Routine 09/07/2025 1 1:30 AM EDT Iron deficiency anemia, unspecified iron deficiency anemia type IRON AND TOTAL IRON BINDING CAPACITY Routine 09/07/2025 11:30 AM EDT Iron deficiency anemia, unspecified iron deficiency anemia type FERRITIN Routine 09/07/2025 11:30 AM EDT Iron deficiency anemia, unspecified iron deficiency anemia type HEPATIC FUNCTION PANEL Routine 09/07/2025 11:30 AM EDT Dyslipidemia LIPID PANEL, STANDARD Routine 09/07/2025 11:30 AM EDT Dyslipidemia POCT GLYCOSYLATED HEMOGLOBIN (HGB A1C) Routine 09/07/2025 10:47 AM EDT Type 2 diabetes mellitus with diabetic peripheral angiopathy without gangrene, with long-term current use of insulin (HCC) POCT GLUCOSE Routine 09/07/2025 10:47 AM EDT Type 2 diabetes mellitus with diabetic peripheral angiopathy without gangrene, with long-term current use of insulin (HCC) documented in this encounter Results * Vitamin B12 (Cobalamin) and Folate Panel, Serum (09/07/2025 11:30 AM EDT) Vitamin B12 240 200 - 900 pg/mL [facility] Comment:NORMAL 200-900 PG/ML INDETERMINATE 160-199 PG/ML DEFICIENT < 160 PG/ML Folate 12.3 > or = 4.0 ng/mL [facility] Comment:Reference Values:> o r = 4.0 ng/mL< 4.0 ng/mL suggests folate deficiency Methotrexate, aminopterin and folinic acid(leucovorin) are chemotherapeutic agents whose molecularstructures are similar to folate; therefore, the Architectfolate assay cannot be used for patients using these drugs. Blood Venous blood specimen / Unknown 09/07/2025 11:30 AM EDT 09/07/2025 12:59 PM EDT us Nicole Montoya MD LAB BLOOD ORDERABLES Final Result [facility] [address] [place] [phone] * (ABNORMAL) Iron And Total Iron Binding Capacity (09/07/2025 11:30 AM EDT) Iron 21(L) 30 - 160 mcg/dL [facility] Total Iron Binding Capacity 355 228 - 428 mcg/dL [facility] Percent Iron Saturation 6(L) 15 - 50 % [facility] Unsaturated Iron Binding 334 ug/dL [facility] Blood Venous blood specimen / Unknown 09/07/2025 11:30 AM EDT 09/07/2025 12:59 PM EDT Nicole Montoya MD LAB BLOOD ORDERABLES Final Result Performing Organization Address City/[facility]/ZIP Co de Phone Number [facility] [address] [place] [phone] * TSH with Reflex to Free T4 (09/07/2025 11:30 AM EDT) TSH reflex Free T4 2.45 0.32 - 4.0 uIU/mL [facility] Blood Venous blood specimen / Unknown 09/07/2025 11:30 AM EDT 09/07/2025 12:59 PM EDT Nicole Montoya MD LAB BLOOD ORDERABLES Final Result Performing Organization Address [facility] Co de Phone Number [facility] [address] [place] [phone] * (ABNORMAL) Ferritin (09/07/2025 11:30 AM EDT) Ferritin 7(L) 10 - 250 ng/mL [facility] Blood Venous blood specimen / Unknown 09/07/2025 11:30 AM EDT 09/07/2025 12:59 PM EDT Nicole Montoya MD LAB BLOOD ORDERABLES Final Result Performing Organization Address City/[facility] Co de Phone Number [facility] [address] [place] [phone] * (ABNORMAL) Lipid Panel, Standard (09/07/2025 11:30 AM EDT) Triglycerides 127 <150 mg/dL [facility] Comment:Desirable Triglyceri de: less than 150 mg/dLBorderline High Triglyceride 150-199 mg/dLHigh Triglyceride: 200-499 mg/dLVery High Triglyceride: greater than or equal to 5OO mg/dL Cholesterol 92 <200 mg/dL [facility] Comment:Desirable Cholestero l: less than 200 mg/dLBorderline High Cholesterol: 200-239 mg/dLHigh Cholesterol: greater than 239 mg/dL LDL Cholesterol Calculated 41 <100 mg/dL [facility] Comment:Desirable LDL: less than 100 mg/dLNear Optimal/Above Optimal LDL: 110- 129 mg/dLBorderline High LDL: 130-159 mg/dLHigh LDL: 160-189 mg/dLVery High LDL: greater than or equal to 190 mg/dL HDL Cholesterol 26(L) >40 mg/dL [facility] Comment:Desirable HDL: great er than 40 mg/dL Note: This HDL assay may give artificially low results in patients with liver disease. Blood Venous blood specimen / Unknown 09/07/2025 11:30 AM EDT 09/07/2025 12:59 PM EDT Nicole Montoya MD LAB BLOOD ORDERABLES Final Result Performing Organization Address City/[facility]/ZIP Co de Phone Number [facility] [address] [place] [phone] * Hepatic Function Panel (09/07/2025 11:30 AM EDT) Bilirubin, Direct 0.3 0.0 - 0.5 mg/dL [facility] Blood Venous blood specimen / Unknown 09/07/2025 11:30 AM EDT 09/07/2025 12:59 PM EDT Nicole Montoya MD LAB BLOOD ORDERABLES Final Result Performing Organization Address City/[facility] Co de Phone Number [facility] [address] [place] [phone] * (ABNORMAL) POCT glucose manually resulted (09/07/2025 10:47 AM EDT) Glucose Blood, POC 419(A) 60 - 200 mg/dL [facility] QC Media Lot # [id number] [facility] Lot# Expiration Date [id number] [facility] Blood Capillary blood specimen / Unknown 09/07/2025 10:47 AM EDT Nicole Montoya MD POINT OF CARE TEST ENTER/E DIT ORDERABLES Final Result Performing Organization Address City/[facility]/ZIP Co de Phone Number [facility] [address] [place] [phone] * (ABNORMAL) POCT glycosylated hemoglobin (Hgb A1c) (09/07/2025 10:47 AM EDT) Hemoglobin A1C 8.9(A) 4.0 - 5.7 % [facility] QC Media Lot # [id number] [facility] Lot# Expiration Date [id number] [facility] Blood Capillary blood specimen / Unknown 09/07/2025 10:47 AM EDT Nicole Montoya MD POINT OF CARE TEST ENTER/E DIT ORDERABLES Final Result Performing Organization Address City/[facility]/ZIP Co de Phone Number [facility] [address] [place] [phone] documented in this encounter Visit Diagnoses Diagnosis Obstructive sleep apnea of adult- Primary Dyslipidemia Other and unspecified hyperlipidemia Bipolar affective disorder, remission status unspecified ([facility]) ([facility]) Abnormal mammogram Abnormal mammogram, unspecified Hx of right BKA ([facility]) ([facility]) Iron deficiency anemia, unspecified iron deficiency anemia type Morbid obesity with BMI of 50.0-59.9, adult ([facility]) ([facility]) Non compliance with medical treatment Personal history of noncompliance with medical treatment, presenting hazards to health Peripheral vascular disease ([facility]) Unspecified peripheral vascular disease S/P amputation of lesser toe, left (CMS/HCC) Type 2 diabetes mellitus with diabetic peripheral angiopathy without gangrene, with long-term current use of insulin (HCC) Vitamin D deficiency Encounter for immunization Encounter for screening mammogram for malignant neoplasm of breast Screening for colon cancer Special screening for malignant neoplasms, colon documented in this encounter Additional Health Concerns Assessment Noted Time PHQ-9 Depression Total Score: 7 09/07/20 25 10:38 AM EDT documented as of this encounter Care Teams Campus Interviews Intern Relationship Specialty Start Date End Date Nicole Montoya MD [address] [place] [phone] PCP - General Family Medicine 11/16/18 Angy De La Fuente, PharmD [address] [place] [phone] Pharmacist Internal Medicine 04/01/24 Juan Carlos Ma MD [address] [place] [phone] Vascular Surgery 10/05/24 Fouzia Wu [facility] Warehouse Selector Manager Utility 09/11/23 [facility] Care 07/04/16 documented as of this encounter
[2025-09-07 13:24] LABS: Imm Gran Abs Auto 0.03 X10*3/uL (0.00-0.03); Imm Gran Pct Auto 0.4 % (0.0-0.4); MANUAL DIFF FLAG SCAN; Platelet Count 456 X10*3/uL (160-400); SCAN SMEAR FLAG 1
[2025-09-07 13:26] LABS: Hematocrit 30.8 % (37.0-47.0); Hemoglobin 7.5 g/dl (12.0-16.0); Lymphocytes Absolute Auto 1.2 X10*3/uL (1.2-4.9); Mean Corpuscular HGB Conc 24.4 g/dl (31.0-35.0); Mean Corpuscular Hemoglobin 14.3 pg (27.0-33.0); NRBC Abs Auto 0.030 X10*3/uL (0.0-0.012); NRBC Pct Auto 0.4 /100WBC (0.0-0.2); Red Blood Count 5.26 X10*6/uL (4.20-5.50); White Blood Count 6.8 X10*3/uL (4.8-10.8)
[2025-09-07 13:35] LABS: Hemoglobin A1C 152.6387 umol/L
[2025-09-07 13:36] LABS: Mean Corpuscular Volume 58.6 fL (80.0-98.0); PLT ABN DIST 1
[2025-09-07 13:41] LABS: Alanine Aminotransferase 16 U/L (0-31); Albumin Level 3.8 g/dL (3.5-5.0); Alkaline Phosphatase 176 U/L (39-117); Anion Gap 11 (12-20); Aspartate Amino Transferase 25 U/L (5-31); Blood Urea Nitrogen 11 mg/dL (9-16); Calcium 8.6 mg/dL (8.4-10.2); Carbon Dioxide 26 mmol/L (22-29); Chloride 104 mmol/L (96-108); Cholesterol 92 mg/dL (<200); Estimated Glomerular Filt Rate > 60; HDL Cholesterol 26 mg/dL (>40); Iron 21 mcg/dL (30-160); Percent Iron Saturation 6 % (15-50); Potassium 4.2 mmol/L (3.3-5.1); Sodium 137 mmol/L (135-145); Total Iron Binding Capacity 355 mcg/dL (228-428); Total Protein 7.7 g/dL (6.5-8.0); Triglycerides 127 mg/dL (<150); Unsaturated Iron Binding 334 ug/dL
[2025-09-07 14:01] LABS: Ferritin 7 ng/mL (10-250); Thyroid Stimulating Hormone 2.45 uIU/mL (0.32-4.0)
[2025-09-07 14:17] LABS: Folate 12.3 ng/mL (> or = 4.0); Vitamin B12 240 pg/mL (200-900)
--- OUTSIDE RECORDS SUMMARY | 2025-09-07 14:28 | XMS_ITS | Encounter Summary ---
Author Organization [employer] Address [address] [facility] [address] [place] [address] Care Team Providers Care Human Resources District Manager Name Role Phone Nicole Montoya MD Primary Care Provider [phone] Angy De La Fuente PharmD Unavailable [phone] Juan Carlos Ma MD Unavailable [phone] Reason for Visit * Reason Onset Date Comments ambulance transpotation 08/31/2025 Encounter Details Date Type Department Care Team (Late st Contact Info) Description 08/31/2025 Telephone [facility] [address] [place] [address] Nicole Montoya MD [address] [place] [address] ambulance transpotation Social History Tobacco Use Types Packs/Day Years [...] Answer Date Recorded Patient Health Questionnaire-9 Score 15 03/24/2024 Patient Health Questionnaire-9 Score 15 03/24/2024 Last PHQ-9: Questionnaire Data Not on file 0 03/24/2024 Housing Stability Answer Date Recorded What is your housing situation today? I have rosendo bautista 03/09/[address] you li ve. Do you have problems with any of the following? None of the above 03/09/2024 Food Insecurity Answer Date Recorded Within the past 12 months, y ou worried that your food would run out before you got money to buy more: Sometimes True 2023 Within the past 12 months,th e food you bought just didn't last and you didn't have enough money to get more: Sometimes True 03/09/2024 Transportation Answer Date Recorded In the past 12 months, has l ack of transportation kept you from medical appts, meetings, work or from getting things needed for daily living? Yes, it has kept me from medical appointments or getting medications. 03/09/2024 Utilities Answer Date Recorded In the past 12 months, has t he electric, gas, oil or water company threatened to shut off services in your home? No 03/09/2024 Depression Answer Date Recorded Patient Health Questionnaire-2 Score 3 03/24/2024 Comments Unknown Sex and Gender Information Value Date Recorded Sex Assigned at Female 09/15/2022 10:16 AM EDT Legal Sex Female 10:16 AM EDT Gender Identity Female 09/15/2022 10:16 AM EDT Sexual Orientation Choose not to disclose 2021 10:16 AM EDT documented as of this encounter Miscellaneous Notes * Telephone Encounter - Cheyenne Echavarria RN - 09/05/2025 11:53 AM EDT Pt contacted with a miner assistant to inform that ambulance transportation should be all set for appointment on 09/07/2025 with PCP. * Telephone Encounter - Cheyenne Echavarria RN - 09/05/2025 11:49 AM EDT Medical necessity form signed by PCP faxed to [facility] at [phone]. Will scan into ptchart under media. * Telephone Encounter - Shira Anna - 09/05/2025 10:01 AM EDT Tc from pt requesting a call back with update to see if ambulance transportation is set for apt on 09/07 Contact pt at [phone] * Telephone Encounter - Cheyenne Echavarria RN - 08/31/2025 1:53 PM EDT [facility] paperwork received for the pt appointment on 09/07/2025 and placed on PCP desk for signature. Will fax back once signed. * Telephone Encounter - Cheyenne Echavarria RN - 08/31/2025 1:19 PM EDT TC placed to [facility] to request transportation for the pt to upcoming appointment with PCP on 09/07/2025 at 945. [facility] will fax over corresponding documentation to be signed by PCP * Telephone Encounter - Shira Anna - 08/31/2025 10:58 AM EDT Tc from pt requesting assistance with ambulance transportation for apt scheduled on 09/07 , as pt can not go up and down the stairs due to having leg amputated. Contact pt at [phone] (urdu) documented in this encounter Plan of Treatment Upcoming Encounters Date Type Department Care Team (Late st Contact Info) Description 09/22/2025 2:00 PM EST Telemedicine [facility] [address] [place] [address] Angy De La Fuente PharmD [address] [place] [address] documented as of this encounter Goals Goal Patient Goal Type Associated Problems Recent Progress Patient-Stated? Author Blood Pressure < 140/90 Blood Pressure 139/60(2024 10:37 AM EDT) No Angy Gutierrez PharmD Hemoglobin A1c < 8 Result Component 9(09/07/2025 11:30 AM EDT) No Angy Gutierrez, PharmD documented as of this encounter Visit Diagnoses Not on filedocumented in this encounter Additional Health Concerns Assessment Noted Time PHQ-9 Depression Total Score: 15 024 1:58 PM EDT documented as of this encounter Care Teams Human Resources District Manager Relationship Specialty Start Date End Date Nicole Montoya MD [address] [place] [phone] PCP - General Family Medicine 11/16/18 Angy De La Fuente, PharmD [address] [place] [phone] Pharmacist Internal Medicine 04/01/24 Juan Carlos Ma MD [address] [place] [phone] Vascular Surgery 10/05/24 Fouzia Wu [facility] Assembly Leader Licensed Prosthetist 09/11/23 [facility] Care 07/04/16 documented as of this encounter
--- OUTSIDE RECORDS SUMMARY | 2025-09-07 14:28 | XMS_ITS | Encounter Summary ---
Author Organization [employer] Address [address] [facility] 7[address] [place] [address] Care Team Providers Care Gaming Surveillance Observer Name Role Phone Nicole Montoya MD Primary Care Provider [phone] Angy De La Fuente PharmD Unavailable [phone] Juan Carlos Ma MD Unavailable [phone] Reason for Visit * Reason Onset Date Comments chart prep 09/06/2025 Encounter Details Date Type Department Care Team (Late st Contact Info) Description 09/06/2025 Telephone [facility] [address] [place], [place] [phone] Nicole Montoya MD [address] [place], [place] [phone] chart prep Social History Tobacco Use Types Packs/Day Years [...] with others, in a hotel, in a halfway, living outside on the street, on a [...] encounter Miscellaneous Notes * Telephone Encounter - Karrie Sood MA - 09/06/2025 9:04 AM EDT .Chart Prep Labs: not done Called patient to remind about upcoming appointment and that labs has not been done. Patient statesthat she gets labs drawn at home and no one has gone home to get it done. Images: not applicable Referrals: appointment pending Vaccines due: Flu, Tdap, Hep B, Hep A, and Zoster Screenings: colonoscopy, mammogram, pap smear, eye exam, and foot exam Overdue care gaps: A1c, Glucose, SBIRT, SDOH, PHQ-9, RICARDO-7, Oral health screening, and Disability screen documented in this encounter Plan of Treatment Upcoming Encounters Date Type Department Care Team (Late st Contact Info) Description 09/22/2025 2:00 PM EST Telemedicine [facility] [address] [place] [address] Angy De La Fuente PharmD [address] [place] [address] documented as of this encounter Goals Goal Patient Goal Type Associated Problems Recent Progress Patient-Stated? Author Blood Pressure < 140/90 Blood Pressure 139/60(2024 10:37 AM EDT) No Angy Gutierrez PharmBrigitte Hemoglobin A1c < 8 Result Component 9(09/07/2025 11:30 AM EDT) No Angy Gutierrez PharmD documented as of this encounter Visit Diagnoses Not on filedocumented in this encounter Additional Health Concerns Assessment Noted Time PHQ-9 Depression Total Score: 15 024 1:58 PM EDT documented as of this encounter Care Teams Gaming Surveillance Observer Relationship Specialty Start Date End Date Nicole Montoya MD [address] [place] [phone] PCP - General Family Medicine 11/16/18 Angy De La Fuente PharmD [address] [place] [address] [phone] Pharmacist Internal Medicine 04/01/24 Juan Carlos Ma MD [address] [place] [phone] Vascular Surgery 10/05/24 Fouzia Wu [facility] Composing Machine Operator/Tender Credit Associate 09/11/23 [facility] Care 07/04/16 documented as of this encounter
--- OUTSIDE RECORDS SUMMARY | 2025-09-07 14:29 | XMS_ITS | Encounter Summary ---
Author Organization [employer] Address [address] [facility] 7t [place] [address] Care Team Providers Care Inspector Structural Bonding Name Role Phone Nicole Montoya MD Primary Care Provider [phone] Angy De La Fuente PharmD Unavailable Juan Carlos Ma MD Unavailable [phone] Encounter Details Date Type Department Care Team (Late Contact Info) Description 06/24/2023 Orders Only [facility] [address] [place] [address] [phone] Nicole Montoya MD [address] [place] [phone] Type 2 diabetes mellitus with other specified complication, with long-term current use of insulin ([facility]) Social History Tobacco Use Types Packs/Day Years Used Date Smoking Tobacco: Never Smokeless Tobacco: Never Depression Answer Date Recorded Patient Health Questionnaire-9 Score 0 02/11/2023 Depression Answer Date Recorded Patient Health Questionnaire-2 Score 0 02/11/2023 Comments Unknown Sex and Gender Information Value Date Recorded Sex Assigned at Female 09/15/2022 10:16 AM EDT Legal Sex Female 10:16 AM EDT Gender Identity Female 09/15/2022 10:16 AM EDT Sexual Orientation Choose not to disclose 2021 10:16 AM EDT documented as of this encounter Plan of Treatment Upcoming Encounters Date Type Department Care Team (Late Contact Info) Description 09/22/2025 2:00 PM EST Telemedicine [facility] [address] [place] [address] [phone] Angy De La Fuente, PharmD [address] [place] [address] documented as of this encounter Visit Diagnoses Diagnosis Type 2 diabetes mellitus with other specified complication, with long-term current use of insulin (HCC) documented in this encounter Additional Health Concerns Assessment Noted Time PHQ-9 Depression Total Score: 0 02/12/20 23 9:10 AM EDT documented as of this encounter Care Teams Inspector Structural Bonding Relationship Specialty Start Date End Date Nicole Montoya MD [address] [place] [phone] PCP - General Family Medicine 11/16/18 Angy De La Fuente, JerseyD [address] [place] [phone] Pharmacist Internal Medicine 04/01/24 Juan Carlos Ma MD [address] [place] [phone] Vascular Surgery 10/05/24 Fouzia Wu [facility] Epic Cupid Analyst Coating Mixer Tender 09/11/23 [facility] Care 07/04/16 documented as of this encounter
--- OUTSIDE RECORDS SUMMARY | 2025-09-07 14:29 | XMS_ITS | Encounter Summary ---
Author Organization [employer] Address [address] [place] [address] Care Team Providers Care Rubber Goods Finisher Name Role Phone Nicole Montoya MD Primary Care Provider [phone]- [phone] Angy De La Fuente PharmD Unavailable [phone] Juan Carlos Ma MD Unavailable [phone] Encounter Details Date Type Department Care Team (Late st Contact Info) Description 09/07/2025 Orders Only [facility] [address] [place], [place] [phone] Nicole Monotya MD [address] [place] [address] Social History Tobacco Use Types Packs/Day Years [...] AM EDT documented as of this encounter Functional Status * Over the past 2 weeks, how often have you been bothered by any of the following problems? Question Answer Date of Assessment Author Patient Health Questionnaire -2 Score 2 09/07/2025 10:38 AM EDT Rhys Pearson MA * Little interest or pleasure in doing things Answer Date of Assessment Author Several days 09/07/2025 10:38 AM EDT Roberto Pearson MA * Feeling down, depressed, or hopeless Answer Date of Assessment Author Several days 09/07/2025 10:38 AM EDT Roberto Pearson MA * Trouble falling or staying asleep, or sleeping too much Answer Date of Assessment Author Several days 09/07/2025 10:38 AM EDT Roberto Pearson MA * Feeling tired or having little energy Answer Date of Assessment Author Several days 09/07/2025 10:38 AM EDT Roberto Pearson MA * Poor appetite or overeating Answer Date of Assessment Author Several days 09/07/2025 10:38 AM EDRoberto Cates MA * Feeling bad about yourself - [...] 09/07/2025 10:38 AM Roberto Rodas MA * Patient Health Questionnaire-9 Score Answer Date of Assessment Author 7 09/07/2025 10:38 AM Roberto Rodas MA * How difficult have these problems made it for you to do your work, take care of things at home, or get along with other people? Answer Date of Assessment Author Somewhat difficult 09/07/2025 10:38 AM Roberto Brown MA * Over the last 2 weeks, how often have you been bothered by any of the following problems? Question Answer Date of Assessment Author Feeling nervous, anxious, or on edge 1 09/07/2025 10:32 AM Rhys Rodas MA Not being able to stop or control worrying 2 09/07/2025 10:32 AM Rhys Rodas MA Worrying too much about different things 1 09/07/2025 10:32 AM Rhys Rodas MA Trouble relaxing 1 09/07/2025 10:32 AM Roberto Rodas MA Being so restless that it is hard to sit still 0 09/07/2025 10:32 AM Rhys Rodas MA Becoming easily annoyed or irritable 0 09/07/2025 10:32 AM EDT Rhys Pearson MA Feeling afraid as if somethi ng awful might happen 1 09/07/2025 10:32 AM EDT Rhys Pearson MA RICARDO-7 Total Score 6 09/07/2025 10:32 AM EDT Roberto Pearson MA documented as of this encounter Plan of Treatment Upcoming Encounters Date Type Department Care Team (Late st Contact Info) Description 09/22/2025 2:00 PM EST Telemedicine [facility] [address] [place] [address] OscarsAngy Guardado PharmD [address] [place] [address] documented as of this encounter Goals Goal Patient Goal Type Associated Problems Recent Progress Patient-Stated? Author Blood Pressure < 140/90 Blood Pressure 139/60(2024 10:37 AM EDT) No Piers-Gambl e, Angy, PharmD Hemoglobin A1c < 8 Result Component 9(09/07/2025 11:30 AM EDT) No Piers-Gambl e, Angy, PharmD documented as of this encounter Procedures Procedure Name Priority Date/Time Associated Diagnosis Comments SLIDE REVIEW Routine 09/07/2025 11:30 AM EDT documented in this encounter Results * Slide Review (09/07/2025 11:30 AM EDT) Slide Review VERIFIED [facility] 09/07/2025 11:3 0 AM EDT 09/07/2025 12:59 PM EDT Nicole Montoya MD LAB BLOOD ORDERABLES Final Result [facility] [address] [place] [address] [phone] documented in this encounter Visit Diagnoses Not on filedocumented in this encounter Additional Health Concerns Assessment Noted Time PHQ-9 Depression Total Score: 7 09/07/20 10:38 AM EDT documented as of this encounter Care Teams Rubber Goods Finisher Relationship Specialty Start Date End Date Nicole Montoya MD [address] [place] [phone] PCP - General Family Medicine 11/16/18 Angy De La Fuente, JerseyD [address] [place] [phone] Pharmacist Internal Medicine 04/01/24 Juan Carlos Ma MD [address] [place] [id number] Vascular Surgery 10/05/24 Fouzia Wu [facility] Facility Sales And Admin Netting Inspector 09/11/23 [facility] 07/04/16 documented as of this encounter
--- OUTSIDE RECORDS SUMMARY | 2025-09-07 14:29 | XMS_ITS | Clinical Summary ---
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 auto differential; Future Assessment & Plan (05/25/2024 9:43 AM EDT): Lab Results Component Value Date HGB 10.4 (L) 03/24/2024 HGB 14.0 08/10/2020 HGB 14.0 08/10/2020 HGB 14.0 08/10/2020 HGB 14.0 08/10/2020 HGB 14.0 08/10/2020 HEMATOCRIT 45.0 08/10/2020 HEMATOCRIT 45.0 08/10/2020 HEMATOCRIT 45.0 08/10/2020 HEMATOCRIT 45.0 08/10/2020 HEMATOCRIT 45.0 08/10/2020 Assessment & Plan (03/24/2024 4:31 PM EDT): Pt has been on Iron supplementation in the past CBC ordered today. Hx of significant bleeding after surgical intervention that required blood transfusions Assessment & Plan (02/11/2023 10:26 AM EDT): -hx severe pica, resolved with iron supplementation Obstructive sleep apnea of adult 02/06/2022 Overview (02/11/2023): -Home sleep study 05/06/2017 revealed severe sleep apnea/hypopnea -CPAP titration ordered via pulmonology due severity of symptoms, sleep study results and likely obesity hypoventilation. Patient did not follow through. Assessment & Plan (09/07/2025 1:42 PM EDT): -Home sleep study 05/06/2017 revealed severe sleep apnea/hypopnea -CPAP titration ordered via pulmonology due severity of symptoms, sleep study results and likely obesity hypoventilation. Patient did not follow through -home sleep study ordered 09/07/25 Orders: Home sleep test; Future Assessment & Plan (05/25/2024 7:38 AM EDT): -Home sleep study 05/06/2017 revealed severe sleep apnea/hypopnea -CPAP titration ordered via pulmonology due severity of symptoms, sleep study results and likely obesity hypoventilation. Patient did not follow through. Assessment & Plan (02/11/2023 10:25 AM EDT): -Home sleep study 05/06/2017 revealed severe sleep apnea/hypopnea -CPAP titration ordered via pulmonology due severity of symptoms, sleep study results and likely obesity hypoventilation. Patient did not follow through -will refer to sleep medicine when pt has demonstrated she will go as she is high likely to be discharged for no shows Bipolar disorder 06/10/2012 Overview (05/25/2024): -Please see med list for pt's current medications. Followed by psychiatrist, Yrn Velez and therapy. Pt has extensive history of psychiatric hospitalizations making it difficult for her to manage chronic conditions. She has extensive wrap around services with VNA and [facility] [employer]. Assessment & Plan (09/07/2025 1:42 PM EDT): Stable followed by psychiatry Assessment & Plan (05/10/2025 2:05 PM EDT): -Please see med list for pt's current medications. Followed by psychiatrist, Yrn Velez and therapy. Pt has extensive history of psychiatric hospitalizations making it difficult for her to manage chronic conditions. She has extensive wrap around services with VNA and [facility] [employer]. Assessment & Plan (05/25/2024 9:56 AM EDT): Please see med list for pt's current medications. Followed by psychiatrist, Yrn Velez and therapy. Pt has extensive history of psychiatric hospitalizations making it difficult for her to manage chronic conditions. She has extensive wrap around services with VNA and [facility] [employer]. Assessment & Plan (02/11/2023 9:46 AM EDT): Please see med list for pt's current medications. Followed by psychiatrist, Yrn Velez and therapy. Pt has extensive history of psychiatric hospitalizations. -no KRYSTLE Dyslipidemia 06/10/2012 Overview (08/31/2024): Lab Results Component Value Date CHOL 140 05/25/2024 TRIG 118 05/25/2024 HDL 44 05/25/2024 LDLCHOLCAL 73 05/25/2024 -continue lifestyle modification Assessment & Plan (09/07/2025 1:42 PM EDT): Lab Results Component Value Date CHOL 140 05/25/2024 TRIG 118 05/25/2024 HDL 44 05/25/2024 LDLCHOLCAL 73 05/25/2024 -continue lifestyle modification Orders: Hepatic Function Panel; Future Lipid Panel, Standard; Future Assessment & Plan (05/10/2025 2:05 PM EDT): Orders: Hepatic Function Panel; Future Lipid Panel, Standard; Future Assessment & Plan (05/25/2024 9:56 AM EDT): No results found for: CHOL , TRIG , HDL , LDLCHOLCAL , LDL -continue lifestyle modification Gastroparesis 06/10/2012 Assessment & Plan (03/24/2024 4:30 PM EDT): Pt on Reglan, pt c/o Nausea, as per [facility] pt has been getting Zofran. Refill given as per patient request. Type 2 diabetes mellitus wit h diabetic peripheral angiopathy without gangrene, with long-term current use of insulin 06/10/2012 Overview (05/10/2025 11:53 AM EDT): Poorly controlled. In past she was hospitalized monthly with DKA an psych crisis. 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 She does not take medications unless administered by a nurse. She is not adherent to a diabetic diet. - Lab Results Component Value Date HGBA1C 10.3 (A) 03/17/2025 HGBA1C 10.6 (A) 09/14/2024 HGBA1C 7.9 (H) 05/25/2024 Lab Results Component Value Date CREATININE 0.74 05/25/2024 EGFR >60 05/25/2024 LDLCHOLCAL 73 05/25/2024 -Tulicity previously discontinued due to pancreatitis -Metformin previously discontinued due to DKA -Lisinopril recently discontinued at hospitalization 01/2024 due to hypotension -Continue Lantus solostar administered by VNA -Continue Novolog: was switched to sliding scale however patient requested return to previous set amount which was switched back to -Currently enrolled in [facility] as of 03/2024 (Was scheduled for an endo appt on 10/03/2020 pt no showed. Nurse to que pt to reschedule. Our referrals will not reschedule due to the number of no shows. Due to her DM, poor diet, and difficulty with insulin regimen she does agree to go endocrinology but then does not show up) -Blood pressure is at goal of <140/90 per JNC 8 guidelines. -Continue statin: atorvastatin 40 -DM foot exam: done 05/25/24 -Per CDTM note on 09/08/24, pharmacological therapy includes: -Novolog flexpen 10 units before breakfast and and 12 units before dinner -Lantus solostar 36 units twice daily -09/19/24 CDTM notes per phone call with pt's VNA: -Lantus solostar increased to 52 units twice daily (previously VNA administering 50 units twice daily). -11/25/24 per CDTM note: -Increase lantus solostar to 54 units twice daily -01/25/25 per CDTM note: -Increase AM Novolog to 12 unit -04/21/25 CDTM visit: -Lantus increased to 58 units twice daily - Novolog switched from sliding scale to set administration of 8 units twice daily before meals Assessment & Plan (09/07/2025 1:42 PM EDT): Orders: POCT glycosylated hemoglobin (Hgb A1c) POCT glucose manually resulted Albumin, Random Urine W/Creatinine; Future Basic Metabolic Panel; Future Assessment & Plan (05/10/2025 2:05 PM EDT): Poorly controlled. In past she was hospitalized monthly with DKA an psych crisis. 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 She does not take medications unless administered by a nurse. She is not adherent to a diabetic diet. - Lab Results Component Value Date HGBA1C 10.3 (A) 03/17/2025 HGBA1C 10.6 (A) 09/14/2024 HGBA1C 7.9 (H) 05/25/2024 Lab Results Component Value Date CREATININE 0.74 05/25/2024 EGFR >60 05/25/2024 LDLCHOLCAL 73 05/25/2024 -Tulicity previously discontinued due to pancreatitis -Metformin previously discontinued due to DKA -Lisinopril recently discontinued at hospitalization 01/2024 due to hypotension -Continue Lantus solostar administered by VNA -Continue Novolog: was switched to sliding scale however patient requested return to previous set amount which was switched back to -Currently enrolled in [facility]TM as of 03/2024 (Was scheduled for an endo appt on 10/03/2020 pt no showed. Nurse to que pt to reschedule. Our referrals will not reschedule due to the number of no shows. Due to her DM, poor diet, and difficulty with insulin regimen she does agree to go endocrinology but then does not show up) -Blood pressure is at goal of <140/90 per JNC 8 guidelines. -Continue statin: atorvastatin 40 -DM foot exam: done 7/10/24 -Per CDTM note on 09/08/24, pharmacological therapy includes: -Novolog flexpen 10 units before breakfast and and 12 units before dinner -Lantus solostar 36 units twice daily -09/19/24 CDTM notes per phone call with pt's VNA: -Lantus solostar increased to 52 units twice daily (previously VNA administering 50 units twice daily). -11/25/24 per CDTM note: -Increase lantus solostar to 54 units twice daily -01/25/25 per CDTM note: -Increase AM Novolog to 12 unit -04/21/25 CDTM visit: -Lantus increased to 58 units twice daily - Novolog switched from sliding scale to set administration of 8 units twice daily before meals Orders: Albumin, Random Urine W/Creatinine; Future Basic Metabolic Panel; Future Assessment & Plan (05/10/2025 11:53 AM EDT): >>ASSESSMENT AND PLAN FOR DIABETES MELLITUS, TYPE 2 ([facility]) WRITTEN ON 02/11/2023 9:45 AM BY NICOLE MONTOYA MD Poorly controlled. In past she was hospitalized monthly with DKA an psych crisis. Psych has been stable > 7 years with [facility] services. -A1c 9.5% 02/11/23. -A1c 12.9% 10/18/2021 -A1c 07/2020 13.2% -Tulicity 1.5mg weekly increased 02/04/2022 -Continue Lantus which was increased to 50 bid 02/04/2022 -metformin increased to 1000 mg BID on 10/20/2021 -Continue Novolog sliding scale with nurses -referral to CDTM 10/18/2021 - Was scheduled for an endo appt on 10/03/2020 pt no showed. Nurse to que pt to reschedule. Our referrals will not reschedule due to the number of no shows. Due to her DM, poor diet, and difficulty with insulin regimen she does agree to go endocrinology but then does not show up. -Blood pressure is at goal of <140/90 per JNC 8 guidelines. -Continue statin, atorvastatin 40 -foot exam done 02/11/2023 -continue lisinopril 5mg daily Assessment & Plan (05/10/2025 11:53 AM EDT): >>ASSESSMENT AND PLAN FOR DIABETES MELLITUS, TYPE 2 ([facility]) WRITTEN ON 03/24/2024 4:29 PM BY JOHNNY CATES MD Patient here for a HDF A1c today 9.1 Blood glucose:340 As per PCP: Patient has a Hx of poorly controlled DM. In past she was hospitalized monthly with DKA an psych crisis. I contacted [facility] to Discontinue: Trulicity due to an episode of Pancreatitis and Metformin due to multiple instances of Lactic Acidosis during her recent hospitalizations.I also sent a new Rx for lantus 35 units subcutaneous BID recently lowered during one of her Hospitalizations. Patient did not bring her glucometer, states she does not know anything regarding her medications since they are managed by VNA I contacted VNA Program I was told that she was the night VNA and did not know much about the patient and to contact the Morning VNA. Plan: Refer back to our Care Management Team. Pt needs intensive care management and Care coordination For now continue Lantus 35 units subcutaneous BID. I asked Team Nurses to contact VNA and ask to provide weekly Blood glucose readings. Depending on that will decide if we need to increase her lantus back to 50 BID. At the moment without any information I do not feel comfortable making any changes given episodes of Hypoglycemia reported.For now continue Novolog sliding scale with nurses Refer to CDTM for DM ( Pt will not be scheduled with endocrinology due to multiple no shows ) Patient is Off lisinopril due to an episode of Hypotension while in the Hospital, BP today is normal. Might consider restart. Follow up with PCP with Blood glucose readings as per VNA Assessment & Plan (05/10/2025 11:53 AM EDT): >>ASSESSMENT AND PLAN FOR DIABETES MELLITUS, TYPE 2 ([facility]) WRITTEN ON 05/25/2024 9:57 AM BY TONY MATHIAS Poorly controlled. In past she was hospitalized monthly with DKA an psych crisis. 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 She does not take medications unless administered by a nurse. She is not adherent to a diabetic diet. Diabetes is controlled. - Lab Results Component Value Date HGBA1C 9.1 (A) 03/24/2024 HGBA1C 9.5 (A) 02/11/2023 HGBA1C 13.2 (H) 08/10/2020 HGBA1C 13.2 (H) 08/10/2020 HGBA1C 13.2 (H) 08/10/2020 HGBA1C 13.2 (H) 08/10/2020 HGBA1C 13.2 (H) 08/10/2020 Lab Results Component Value Date CREATININE 0.66 03/24/2024 EGFR >60 03/24/2024 -Tulicity previously discontinued due to pancreatitis -Metformin previously discontinued due to DKA -Lisinopril recently discontinued at hospitalization 01/2024 due to hypotension -Continue Lantus solostar administered by VNA -Continue Novolog sliding scale with nurses -Currently enrolled in CDTM as of 03/2024 (Was scheduled for an endo appt on 10/03/2020 pt no showed. Nurse to que pt to reschedule. Our referrals will not reschedule due to the number of no shows. Due to her DM, poor diet, and difficulty with insulin regimen she does agree to go endocrinology but then does not show up) -Blood pressure is at goal of <140/90 per JNC 8 guidelines. -Continue statin: atorvastatin 40 -DM foot exam: done 05/25/24 Assessment & Plan (05/10/2025 11:53 AM EDT): >>ASSESSMENT AND PLAN FOR DIABETES MELLITUS, TYPE 2 ([facility]) WRITTEN ON 09/14/2024 8:53 PM BY TG GUZMAN MD Patient with uncontrolled diabetes -hb1AC 10.6, Gl 267 today capillary Per pt has elevated CBGs in fasting at 200s but some times low readings in 70s -from PCP 05/2024 -Tulicity previously discontinued due to pancreatitis and metformin discontinued due to DKA in the past -seems resumed in the hospital --I am placing GLP1 and metformin in allergy list to avoid resuming meds in future.I am discontinuing metformin from med list -I called today her VNA Francesca Cox # [phone] and confirmed meds receiving at home and confirmed pt on metformin since dc from hospital. -pt f for DM w CDTM program : Novolog flexpen 10 units BID and Lantus solostar 36 units twice daily -I spoke today w Angy Morales who is helping pt w DM management from CDTM and she will contact today pt's VNA to check actually how is getting DM meds /insulin and CBGs to help w insulin titration -f w PCP in 4 to 6 weeks for chronic conditions -Pt request to have more [employer] hours in am ,pt is wheelchair bound --requested today to director of midwifery/staff midwife to assist w this request -Flu and COVID 19 vaccine given today Resolved Problems Problem Noted Date Diagnosed Date Resolved Date Hx of right BKA (CMS/HCC) 11/04/2024 Assessment & Plan (09/07/2025 1:42 PM EDT): Has wheelchair, Stump clean and dry without lesions Foot pain, left 09/14/2024 09/07/2025 Assessment & Plan (09/14/2024 8:52 PM EDT): -chronic foot pain w no obvious lesions in sole , possible DM neuropathy -cardiac cath lab technologist referred today -tylenol , diclofenac topical pxed -refilled gabapentin confirmed w her pharmacy 300 mg dose TID -pxed clotrimazole cream To apply in skin of previous amputation of 4 rd toe in left foot E coli bacteremia 09/14/2024 09/26/2024 Assessment & Plan (09/14/2024 8:53 PM EDT): Pt reports feeling well w close to completing ATB for E coli UTI/Bacteremia -CT chest/ abd/Pelvis w IV contrast 09/07/2024: enlarged main pulmonary artery which measures up to 43 mm. ,mild to moderate proximal left coronary system calcifications suggested ,marked hepatic steatosis ,marked pancreatic atrophy. Moderate nephritis stranding.Area of indeterminate mixed attenuation at the lower pole of right kidney measuring up to 5 cm .Similar area at the mid pole of the left kidney measures 3.2 cm . Recommended follow up imaging to exclude underlying renal masses or lesions as alterantive diagnosis which is considered less likely given these findings are new from exam performed this year -ordered TSH ,CBC,chem today -ordered today renal US to have it done in [address] renal findings Hospital discharge follow-up 09/14/2024 09/26/2024 Physical exam 05/25/2024 09/26/2024 Encounter for screening mamm ogram for malignant neoplasm of breast 02/11/2023 09/07/2025 Assessment & Plan (02/11/2023 10:27 AM EDT): mammo ordered 02/11/2023 History of measles, mumps, r ubella (MMR) vaccination unknown 02/11/2023 04/29/2023 Assessment & Plan (02/11/2023 10:26 AM EDT): -vaccine titers ordered 02/11/2023 Varicella vaccination status unknown 02/11/2023 04/29/2023 Assessment & Plan (02/11/2023 10:25 AM EDT): -vaccine titers ordered 02/11/2023 Routine screening for STI (s exually transmitted infection) 02/11/2023 04/29/2023 Assessment & Plan (02/11/2023 10:25 AM EDT): HIV and hep screening ordered 02/11/2023 Physical exam 02/11/2023 04/29/2023 Assessment & Plan (02/11/2023 10:26 AM EDT): Physical exam 02/11/2023. Normal growth and development. Anticipatory guidance discussed. Agrees to vaccines and labs. Preventative health discussed. Refuses pap today. Refuses colonosopy referral. Agrees to cologuard. Follow up 1 month for pap Ambulates with cane 02/11/2023 01/28/20 24 Encounters Date Type Department Care Team Description 09/07/2025 9:45 AM EDT Office Visit [facility] [address] [place] [phone] Nicole Montoya MD Obstructive sleep apnea of adult (Primary Dx); Dyslipidemia; Bipolar affective disorder, remission status unspecified (CMS/HCC) (HCC); Abnormal mammogram; Hx of right BKA (CMS/HCC) (HCC); Iron deficiency anemia, unspecified iron deficiency anemia type; Morbid obesity with BMI of 50.0-59.9, adult (CMS/HCC) (HCC); Non compliance with medical treatment; Peripheral vascular disease ([facility]); S/P amputation of lesser toe, left ([facility]); Type 2 diabetes mellitus with diabetic peripheral angiopathy without gangrene, with long-term current use of insulin ([facility]); Vitamin D deficiency; Encounter for immunization; Encounter for screening mammogram for malignant neoplasm of breast; Screening for colon cancer 09/07/2025 Orders Only [address] [phone] Nicole Montoya MD 09/07/[address] [phone] Nicole Montoya MD Letter 09/07/[address] [phone] Nicole Montoya MD VNA 09/07/2025 Travel 09/06/[address] [address] Nicole Montoya MD chart prep 08/31/[address] [address] Nicole Montoya MD ambulance transpotation 08/31/[address] [address] Nicole Montoya MD shuttle inspector hours 08/30/[address] [address] Nicole Montoya MD Nurse Triage 08/30/[address] [address] Nicole Montoya MD fyi 08/29/[address] [address] Angy De La Fuente PharmD 08/23/2025 2:30 PM EDT Telemedicine [address] [address] Angy De La Fuente PharmD Type 2 diabetes mellitus with diabetic peripheral angiopathy without gangrene, with long-term current use of insulin (HCC) (Primary Dx); Type 2 diabetes mellitus treated with insulin (HCC); Type 2 diabetes mellitus with hyperglycemia, with long-term current use of insulin (HCC) 08/23/2025 Telephone [facility] [address] [place] [phone] Angy De La Fuente PharmD Nurse Triage 08/22/2025 Telephone [facility] [address] [place] [phone] Angy De La Fuente, PharmD 08/22/2025 Refill [facility] [address] [place] [phone] Angy De La Fuente, PharmD Type 2 diabetes mellitus with hyperglycemia, with long-term current use of insulin ([facility]) 08/15/[address] [address] Nicole Montoya MD Durable Medical Equipment (DME: [employer]) 08/15/2025 Telephone [facility] [address] [place] [phone] Nicole Montoya MD Nurse Triage 08/14/[address] [address] Angy De La Fuente, PharmD 08/11/2025 Telephone [facility] [address] [place] [phone] Milagros Patricia MA 08/08/2025 Refill [facility] [address] [place] [phone] Nicole Montoya MD Pain 08/07/2025 Patient Outreach [address] [phone] Nicole Montoya MD Pre-visit Planning (Pre-visit planning - LVM ) 08/03/[address] [address] Anisha Yoon, LORENZA NTTS; Durable Medical Equipment 08/01/[address] [address] Nicole Montoya MD 07/28/2025 Refill [facility] [address] [place] [phone] Nicole Montoya MD Neuropathy 07/21/[address] [address] Nicole Montoya MD Med Refill 07/19/[address] [address] Nicole Montoya MD Med Refill 07/09/2025 Orders Only [facility] [address] [place] [phone] Nicole Montoya MD Type 2 diabetes mellitus with diabetic peripheral angiopathy without gangrene, with long-term current use of insulin ([facility]) (Primary Dx) 07/07/[address] [address] Nicole Montoya MD Nurse Triage 07/07/[address] [address] Angy De La Fuente, PharmD 07/05/2025 2:00 PM EDT Telemedicine [address] [address] Angy De La Fuente, PharmD Type 2 diabetes mellitus with diabetic peripheral angiopathy without gangrene, with long-term current use of insulin (CMS/HCC) (Primary Dx); Type 2 diabetes mellitus with hyperglycemia, with long-term current use of insulin (CMS/HCC) 07/02/2025 Telephone [facility] [address] [place] [phone] Angy De La Fuente, PharmD 06/30/[address] [address] Nicole Montoya MD Vitamin D deficiency 06/20/[address] [phone] Nicole Montoya MD Medication Question 06/20/[address] [phone] Nicole Montoya MD Med Refill 06/20/2025 Refill [facility] [address] [place] [phone] Nicole Montoya MD Pain 06/19/2025 Refill [facility] [address] [place] [phone] Angy De La Fuente, JerseyD Type 2 diabetes mellitus with hyperglycemia, with long-term current use of insulin ([facility]) 06/18/2025 Refill [facility] [address] [place] [phone] Nicole Montoya MD Neuropathy; Type 2 diabetes mellitus with hyperglycemia, with long-term current use of insulin ([facility]) 06/15/2025 Telephone [facility] [address] [place] [phone] Nicole Montoya MD 06/09/2025 Telephone [facility] [address] [place] [phone] [facility] 06/08/2025 Telephone [facility] [address] [place] [phone] Nicole Montoya MD Durable Medical Equipment from Last 3 Months Immunizations Immunization Administration Dates Next Due Hep A, Adult 09/07/2025 Hep B, adult 09/07/2025,05/25/2024 Influenza injectable quadriv alent IIV4 with preservative 08/06/2015 Influenza injectable quadriv alent preservative free 02/03/2019,01/22/2015 Influenza, IIV3, injectable 08/28/2011, 1,09/12/2008 Influenza, Split (incl. junior fied surface antigen) 08/17/2013 Influenza, seasonal, injecta ble, preservative free 09/07/2025,09/14/2024 Pfizer Covid-19 Vaccine 12+ 09/14/2024,,03/19/2021 Pneumococcal Conjugate PCV 20 05/25/2024 Pneumococcal Polysaccharide PPSV23 01/22/2015,,08/07/2005 TD (adult), 2 Lf tetanus tox oid, preservative free, adsorbed 10/24/2010,03/24/2005 Tdap 09/07/2025,01/22/2015 Family History Medical History Relation Name Comments Developmental delay Daughter Diabetes Mother Relation Name Status Comments Daughter Mother Social History Tobacco Use Types Packs/Day Years Used Date Smoking Tobacco: Never Smokeless Tobacco: Never Tobacco Cessation:Counseling Given: Not Answered Alcohol Use Standard Drinks/Week Comments Never 0 [...] with others, in a hotel, in a alf, living outside on the street, on a [...] not to disclose 2021 10:16 AM EDT Last Filed Vital Signs Vital Sign Reading Time Taken Comments Blood Pressure 139/60 09/07/2025 10:37 AM EDT Pulse 92 09/07/2025 10:37 AM EDT Temperature 36.3 C (97.3 F) 09/07/2025 10:37 AM EDT Respiratory Rate 20 09/07/2025 10:37 AM EDT Oxygen Saturation 95% 09/14/2024 10:53 AM EDT Inhaled Oxygen Concentration - - Weight 124 kg (273 lb) 09/07/2025 10:37 AM EDT Height 157.5 cm (5' 2 ) 09/07/2025 10:37 AM EDT Body Mass Index 49.93 09/07/2025 10:37 AM EDT Plan of Treatment Upcoming Encounters Date Type Department Care Team (Late st Contact Info) Description 09/22/2025 2:00 PM EST Telemedicine [facility] [address] [place] [address] Angy De La Fuente, PharmD [address] [place] [address] Health Maintenance Due Date Last Done Comments CT Colonography 1971 Colonoscopy 1971 Colorectal Cancer Screening 1971 FIT DNA/Cologuard 1971 FIT 1971 FOBT 1971 Sigmoidoscopy 1971 Eye Exam 1981 Alcohol/Substance Use Screening 1983 Mammogram 04/09/2019 04/09/2017 Pap Smear 04/09/2020 04/09/2017 Zoster Vaccines (1 of 2) 2021 Diabetes: Urine Protein Screening 08/10/2021 08/10/2020 Cervical Cancer Screening 04/09/2022 HPV/Cotest 04/09/2022 04/09/2017, 10/17/2016 Hepatitis B Vaccines (3 of 3 - 19+ 3-dose series) 11/02/2025 09/07/2025, 05/25/2024 Diabetes: Hemoglobin A1C 12/08/2025 025, 09/07/2025, 03/17/2025, Additional history exists Hepatitis A Vaccines (2 of 2 - Risk 2-dose series) 03/08/2026 09/07/2025 Depression Screening 09/07/2026 09/07/2025, 09/07/20 Diabetes: Foot Exam 09/07/2026 09/07/2025, 05/25/2024, 05/25/2024, Additional history exists Disability Screening 09/07/2026 09/07/2025 Lipid Panel 09/07/2026 09/07/2025, 05/16, 08/10/2020 SDOH Screening 09/07/2026 09/07/2025 Tobacco Screening 09/07/2026 09/07/2025 DTaP/Tdap/Td Vaccines (3 - Td or Tdap) 09/07/2035 09/07/2025, 01/22/2015, 10/24/2010, Additional history exists RSV Patients and Patients Aged 60 years or older (1 - 1-dose 75+ series) 2046 HIV Screening Completed 08/10/2020 Hepatitis C Screening Completed 08/10/2020 Pneumococcal Vaccine: 50+ Years Completed 05/25/2024, 01/22/2015, 08/28/2011, Additional history exists COVID-19 Vaccine Completed 09/14/2024, , 03/19/2021 Influenza Vaccine Completed 09/07/2025, , 02/03/2019, Additional history exists HIB Vaccines Aged Out No longer eligi ble based on patient's age to complete this topic HPV Vaccines Aged Out No longer eligi ble based on patient's age to complete this topic IPV Vaccines Aged Out No longer eligi ble based on patient's age to complete this topic Meningococcal B Vaccine Aged Out No l onger eligible based on patient's age to complete this topic Meningococcal Vaccine Aged Out No shazia holli eligible based on patient's age to complete this topic RSV under 20 months Aged Out No longe r eligible based on patient's age to complete this topic Rotavirus Vaccines Aged Out No longer eligible based on patient's age to complete this topic Goals Goal Patient Goal Type Associated Problems Recent Progress Patient-Stated? Author Blood Pressure < 140/90 Blood Pressure 139/60(2024 10:37 AM EDT) No Angy Gutierrez PharmD Hemoglobin A1c < 8 Result Component 9(09/07/2025 11:30 AM EDT) No Angy Gutierrez PharmD Procedures Procedure Name Priority Date/Time Associated Diagnosis Comments SLIDE REVIEW Routine 09/07/2025 11:30 AM EDT VITAMIN B12/FOLATE, SERUM PANEL Routine 09/07/2025 11:30 [...] deficiency anemia, unspecified iron deficiency anemia type LIPID PANEL, STANDARD Routine 09/07/2025 11:30 AM EDT Dyslipidemia HEPATIC FUNCTION PANEL Routine 11:30 AM EDT Dyslipidemia CBC WITH AUTO DIFFERENTIAL Routine 09/07/2025 11:30 AM EDT Iron deficiency anemia, unspecified iron deficiency anemia type TSH Routine 09/07/2025 11:30 AM EDT Iron deficiency anemia, unspecified iron deficiency anemia type HEMOGLOBIN A1C Routine 09/07/2025 11:30 AM EDT Iron deficiency anemia, unspecified iron deficiency anemia type VITAMIN D,25-OH,TOTAL,IA Routine 09/07/2025 11:30 AM EDT Vitamin D deficiency COMPREHENSIVE METABOLIC PANEL Routine 09/07/2025 11:30 AM EDT Type 2 diabetes mellitus with diabetic peripheral angiopathy without gangrene, with long-term current use of insulin (HCC) POCT GLUCOSE Routine 09/07/2025 10:47 AM EDT Type 2 diabetes mellitus with diabetic peripheral angiopathy without gangrene, with long-term current use of insulin (HCC) POCT GLYCOSYLATED HEMOGLOBIN (HGB A1C) Routine 09/07/2025 10:47 AM EDT Type 2 diabetes mellitus with diabetic peripheral angiopathy without gangrene, with long-term current use of insulin (HCC) ZZZ HISTORICAL HEPATITIS C AB W/REFL TO HCV RNA, QN, PCR Routine 08/10/2020 10:58 AM EDT HIV 1/2 ANTIGEN/ANTIBODY, FOURTH GENERATION W/RFL Routine 08/10/2020 10:58 AM EDT ALBUMIN, RANDOM URINE W/CREATININE Routine 08/10/2020 10:58 AM EDT HPV HIGH RISK PCR Routine 04/09/2017 12: 00 AM EDT PAP SMEAR Routine 04/09/2017 12:00 AM EDT HM MAMMOGRAPHY Routine 04/09/2017 from Last 3 Months or Most Recently Relevant to Health Maintenance Results * Slide Review (09/07/2025 11:30 AM EDT) Slide Review VERIFIED [facility] 09/07/2025 11:3 0 AM EDT 09/07/2025 12:59 PM EDT us Nicole Montoya MD LAB BLOOD ORDERABLES Final Result [facility] [address] [place] [phone] * (ABNORMAL) Vitamin D, 25-Hydroxy, Total, Immunoassay (09/07/2025 11:30 AM EDT) Vitamin D 25-OH Total 24.2(L) >30 ng/mL [facility] Comment: Health Based Reference Values*< 20 ng/mL Fycblaomo93-68 ng/mL Insufficient> 30 ng/mL Sufficient*Cassandra CRONIN. N Engl J Med. 2007;357:266-280There is no well-established upper level of normal vitamin Dlevels. Some laboratories use 50 ng/mL as an upper limit ofnormal. However, toxicity is patient-dependent and may occurat any level. Careful correlation with the patient'spresentation is necessary and, if there is concern forvitamin D toxicity, treatment should be consideredirrespective of the serum level.Care must be taken in interpreting Vitamin D results fromdifferent laboratories and methodologies. Published datademonstrated that results from patients undergoinghemodialysis may show a negative bias when tested withvarious automated 25-OH vitamin D assays when compared toLC-MS/MS.When testing samples from patients whose predominant form ofVitamin D is Vitamin D2, such as patients receiving VitaminD2 supplementation, results that are subtherapeutic shouldbe confirmed with another method such as LC-MS/MS. Blood 09/07/2025 11:3 0 AM EDT 09/07/2025 12:59 PM EDT us Nicole Montoya MD LAB BLOOD ORDERABLES Final Result [facility] [address] [place] [phone] * Vitamin B12 (Cobalamin) and Folate Panel, Serum (09/07/2025 11:30 AM EDT) Vitamin B12 240 200 - 900 pg/mL [facility] Comment:NORMAL 200-900 PG/ML INDETERMINATE 160-199 PG/ML DEFICIENT < 160 PG/ML Folate 12.3 > or = 4.0 ng/mL [facility] Comment:Reference Values:> o r = [...] BLOOD ORDERABLES Final Result Performing Organization Address City/[facility]/ZIP Co de Phone Number [facility] [address] [place] [phone] * TSH with Reflex to Free T4 (09/07/2025 11:30 AM EDT) Pathologist [facility] TSH reflex Free T4 2.45 0.32 - 4.0 uIU/mL [facility] Blood Venous blood specimen / Unknown 09/07/2025 11:30 AM EDT 09/07/2025 12:59 PM EDT Nicole Montoya MD LAB BLOOD ORDERABLES Final Result Performing Organization Address [facility] Co de Phone Number [facility] [address] [place] [address] [phone] * (ABNORMAL) CBC auto differential (09/07/2025 11:30 AM EDT) White Blood Count 6.8 4.8 - 10.8 X10*3/uL [facility] Red Blood Count 5.26 4.20 - 5.50 X10*6/uL [facility] Hemoglobin 7.5(L) 12.0 - 16.0 g/dl [facility] Hematocrit 30.8(L) 37.0 - 47.0 % [facility] Mean Corpuscular Volume 58.6(L) 80.0 - 98.0 fL [facility] Mean Corpuscular Hemoglobin 14.3(L) 27.0 - 33.0 pg [facility] Mean Corpuscular HGB Conc 24.4(L) 31.0 - 35.0 g/dl [facility] Red Cell Distribution Width 25.1(H) 11.0 - 16.0 % [facility] Platelet Count 456(H) 160 - 400 X10*3/uL [facility] Mean Platelet Volume 8.9(L) 9.4 - 12.3 fL [facility] Neutrophils Percent Auto 74.3(H) 45 - 73 % [facility] Imm Gran Pct Auto 0.4 0.0 - 0.4 % [facility] Lymphocytes Percent Auto 17.8(L) 20 - 40 % [facility] Monocytes Percent Auto 5.7 2 - 11 % [facility] Eosinophils Percent Auto 0.9 0 - 4 % [facility] Basophils Percent Auto 0.9 0 - 2 % [facility] NRBC Pct Auto 0.4(H) 0.0 - 0.2 /100WBC [facility] Neutrophils Absolute Auto 5.0 2.0 - 8.3 x10*3/uL [facility] Imm Gran Abs Auto 0.03 0.00 - 0.03 X10*3/uL [facility] Lymphocytes Absolute Auto 1.2 1.2 - 4.9 X10*3/uL [facility] Monocytes Absolute Auto 0.4 0.1 - 1.2 X10*3/uL [facility] Eosinophils Absolute Auto 0.1 0.0 - 0.4 X10*3/uL [facility] Basophils Absolute Auto 0.1 0.0 - 0.2 X10*3/uL [facility] NRBC Abs Auto 0.030(H) 0.0 - 0.012 X10*3/uL [facility] Blood Venous blood specimen / Unknown 09/07/2025 11:30 AM EDT 09/07/2025 12:59 PM EDT us Nicole Montoya MD LAB BLOOD ORDERABLES Edite d Result - Final [facility] [address] [place] [phone] * (ABNORMAL) Iron And Total Iron Binding Capacity (09/07/2025 11:30 AM EDT) Pathologist [facility] Iron 21(L) 30 - 160 mcg/dL [facility] Total Iron Binding Capacity 355 228 - 428 mcg/dL [facility] Percent Iron Saturation 6(L) 15 - 50 % [facility] Unsaturated Iron Binding 334 ug/dL [facility] Blood Venous blood specimen / Unknown 09/07/2025 11:30 AM EDT 09/07/2025 12:59 PM EDT Nicole Montoya MD LAB BLOOD ORDERABLES Final Result Performing Organization Address [facility]/ZIP Co de Phone Number [facility] [address] [place] [phone] * TSH (09/07/2025 11:30 AM EDT) [facility] Thyroid Stimulating Hormone 2.45 0.32 - 4.0 uIU/mL [facility] Comment:TSH 3rd Generation ( [facility]) Blood Venous blood specimen / Unknown 09/07/2025 11:30 AM EDT 09/07/2025 12:59 PM EDT Nicole Montoya MD LAB BLOOD ORDERABLES Final Result Performing Organization Address City/[facility]/ZIP Co de Phone Number [facility] [address] [place] [phone] * (ABNORMAL) Hemoglobin A1c (09/07/2025 11:30 AM EDT) Pathologist [facility] Hemoglobin A1c 9.0(H) <6.0 % [facility] Comment:Hemoglobin A1C Refer ence Range Adults: 4.8 - 6.0 % Non diabetic: < 6.0 % Goal: < 7.0 %Additional Action Suggested: > 8.0 %Note: Hemoglobin A1c results are invalid for patients with abnormal amounts of HbF. Blood transfusions may impact the HbA1c concentration in the patient sample. Estimated Average Glucose 212 mg/dL [facility] Comment:eAG = Estimated ave rage glucose which is %A1C expressed asaverage glucose, using the formula of the X8R-SyrhxrhRyqcufv Glucose study (ADAG), Diabetes Care, Vol.31,#8,2007 Blood Venous blood specimen / Unknown 09/07/2025 11:30 AM EDT 09/07/2025 12:59 PM EDT Nicole Montoya MD LAB BLOOD ORDERABLES Final Result Performing Organization Address [facility]/ZIP Co de Phone Number [facility] [address] [place] [address] [phone] * (ABNORMAL) Ferritin (09/07/2025 11:30 AM EDT) Ferritin 7(L) 10 - 250 ng/mL [facility] Blood Venous blood specimen / Unknown 09/07/2025 11:30 AM EDT 09/07/2025 12:59 PM EDT Nicole Montoya MD LAB BLOOD ORDERABLES Final Result Performing Organization Address [facility] Co de Phone Number [facility] [address] [place] [address] [phone] * Hepatic Function Panel (09/07/2025 11:30 AM EDT) Bilirubin, Direct 0.3 0.0 - 0.5 mg/dL [facility] Blood Venous blood specimen / Unknown 09/07/2025 11:30 AM EDT 09/07/2025 12:59 PM EDT Nicole Montoya MD LAB BLOOD ORDERABLES Final Result Performing Organization Address [facility] Co de Phone Number [facility] [address] [place] [address] [phone] * (ABNORMAL) Lipid Panel, Standard (09/07/2025 11:30 AM EDT) Triglycerides 127 <150 mg/dL [facility] Comment:Desirable Triglyceri de: less than 150 mg/dLBorderline High Triglyceride 150-199 mg/dLHigh Triglyceride: 200-499 mg/dLVery High Triglyceride: greater than or equal to 5OO mg/dL Cholesterol 92 <200 mg/dL [facility] Comment:Desirable Cholestero l: less than 200 mg/dLBorderline High Cholesterol: 200-239 mg/dLHigh Cholesterol: greater than 239 mg/dL LDL Cholesterol Calculated 41 <100 mg/dL [facility] Comment:Desirable LDL: less than 100 mg/dLNear Optimal/Above Optimal LDL: 110- 129 mg/dLBorderline High LDL: 130-159 mg/dLHigh LDL: 160-189 mg/dLVery High LDL: greater than or equal to 190 mg/dL HDL Cholesterol 26(L) >40 mg/dL [facility] Comment:Desirable HDL: great er than 40 mg/dL Note: This HDL assay may give artificially low results in patients with liver disease. Blood Venous blood specimen / Unknown 09/07/2025 11:30 AM EDT 09/07/2025 12:59 PM EDT Nicole Montoya MD LAB BLOOD ORDERABLES Final Result [facility] [address] [place] [address] [phone] * (ABNORMAL) Comprehensive Metabolic Panel (09/07/2025 11:30 AM EDT) Sodium 137 135 - 145 mmol/L [facility] Potassium 4.2 3.3 - 5.1 mmol/L [facility] Chloride 104 96 - 108 mmol/L [facility] Carbon Dioxide 26 22 - 29 mmol/L [facility] Anion Gap 11(L) 12 - 20 [facility] Urea Nitrogen (BUN) 11 9 - 16 mg/dL [facility] Creatinine, Serum 0.76 0.5 - 1.4 mg/dL [facility] Estimated Glomerular Filt Rate >60 [facility] Comment:Chronic Kidney Disea se: Estimated GFR < 60 mL/min/[id number] Kidney Disease: Estimated GFR < 15 mL/min/1.73m2 Glucose 323(H) 60 - 115 mg/dL [facility] Calcium 8.6 8.4 - 10.2 mg/dL [facility] Bilirubin, Total 0.7 0.0 - 1.0 mg/dL [facility] Aspartate Amino Transferase 25 5 - 31 U/L [facility] Alanine Aminotransferase 16 0 - 31 U/L [facility] Total Protein 7.7 6.5 - 8.0 g/dL [facility] Albumin Level 3.8 3.5 - 5.0 g/dL [facility] Alkaline Phosphatase 176(H) 39 - 117 U/L [facility] Blood Venous blood specimen / Unknown 09/07/2025 11:30 AM EDT 09/07/2025 12:59 PM EDT Tg Guzman MD LAB BLOOD ORDERAB LES Final Result [facility] [address] [place] [address] [phone] * (ABNORMAL) POCT glycosylated hemoglobin (Hgb A1c) (09/07/2025 10:47 AM EDT) Hemoglobin A1C 8.9(A) 4.0 - 5.7 % [facility] QC Media Lot # [id number] [facility] Lot# Expiration Date [id number] [facility] Blood Capillary blood specimen / Unknown 09/07/2025 10:47 AM EDT Nicole Montoya MD POINT OF CARE TEST ENTER/E DIT ORDERABLES Final Result Performing Organization Address City/[facility]/ZIP Co de Phone Number [facility] [address] [place] [address] [phone] * (ABNORMAL) POCT glucose manually resulted (09/07/2025 10:47 AM EDT) Glucose Blood, POC 419(A) 60 - 200 mg/dL [facility] QC Media Lot # [id number] [facility] Lot# Expiration Date [id number] [facility] Blood Capillary blood specimen / Unknown 09/07/2025 10:47 AM EDT us Nicole Montoya MD POINT OF CARE TEST ENTER/E DIT ORDERABLES Final Result [facility] [address] [place] [phone] * HEPATITIS C AB W/REFL TO HCV RNA, QN, PCR (08/10/2020 10:58 AM EDT) HEPATITIS C ANTIBODY NON-REACT SHANA NON-REACT SHANA [facility] INDEX 0.02 <1.00 [facility] Comment: HCV antibody was non-reactive. There is no laboratory evidence of HCV infection. In most cases, no further action is required. However, if recent HCV exposure is suspected, a test for HCV RNA (test code 15467) is suggested. For additional information please refer to http://Proformative.TerraLUX/faq/MOA72u8 (This link is being provided for informational/ educational purposes only.) HEPATITIS C ANTIBODY NON-REACT SHANA NON-REACT SHANA [facility] INDEX 0.02 <1.00 [facility] Comment: HCV antibody was non-reactive. There is no laboratory evidence of HCV infection. In most cases, no further action is required. However, if recent HCV exposure is suspected, a test for HCV RNA (test code 78907) is suggested. For additional information please refer to http://Proformative.TerraLUX/faq/DDP39k8 (This link is being provided for informational/ educational purposes only.) HEPATITIS C ANTIBODY NON-REACT SHANA NON-REACT SHANA [facility] INDEX 0.02 <1.00 [facility] Comment: HCV antibody was non-reactive. There is no laboratory evidence of HCV infection. In most cases, no further action is required. However, if recent HCV exposure is suspected, a test for HCV RNA (test code 54836) is suggested. For additional information please refer to http://Proformative.TerraLUX/faq/MNE43o2 (This link is being provided for informational/ educational purposes only.) HEPATITIS C ANTIBODY NON-REACT SHANA NON-REACT SHANA [facility] INDEX 0.02 <1.00 [facility] Comment: HCV antibody was non-reactive. There is no laboratory evidence of HCV infection. In most cases, no further action is required. However, if recent HCV exposure is suspected, a test for HCV RNA (test code 39994) is suggested. For additional information please refer to http://Proformative.TerraLUX/faq/SND07p8 (This link is being provided for informational/ educational purposes only.) 08/10/2020 10:5 8 AM EDT us Nicole Montoya MD HISTORICAL/NON ORDERABLE L ABS Final Result [facility] [address] * (ABNORMAL) ALBUMIN, RANDOM URINE W/CREATININE (08/10/2020 10:58 AM EDT) Creatinine, Urine 19(L) 20 - 275 mg/dL [facility] Microalbumin Urine 0.7 See Note: mg/dL [facility] Comment: Reference Range: Reference Range Not established Microalb/Creat Ratio 37(H) <30 mcg/mg creat [facility] Comment: The ADA defines abnormalities in albumin excretion as follows: Category Result (mcg/mg creatinine) Normal <30 Microalbuminuria 30-299 Clinical albuminuria > OR = 300 The ADA recommends that at least two of three specimens collected within a 3-6 month period be abnormal before considering a patient to be within a diagnostic category. Creatinine, Urine 19(L) 20 - 275 mg/dL [facility] Creatinine, Urine 19(L) 20 - 275 mg/dL [facility] Microalbumin Urine 0.7 See Note: mg/dL [facility] Comment: Reference Range: Reference Range Not established Microalb/Creat Ratio 37(H) <30 mcg/mg creat [facility] Comment: The ADA defines abnormalities in albumin excretion as follows: Category Result (mcg/mg creatinine) Normal <30 Microalbuminuria 30-299 Clinical albuminuria > OR = 300 The ADA recommends that at least two of three specimens collected within a 3-6 month period be abnormal before considering a patient to be within a diagnostic category. Creatinine, Urine 19(L) 20 - 275 mg/dL [facility] Microalbumin Urine 0.7 See Note: mg/dL [facility] Comment: Reference Range: Reference Range Not established Microalb/Creat Ratio 37(H) <30 mcg/mg creat [facility] Comment: The ADA defines abnormalities in albumin excretion as follows: Category Result (mcg/mg creatinine) Normal <30 Microalbuminuria 30-299 Clinical albuminuria > OR = 300 The ADA recommends that at least two of three specimens collected within a 3-6 month period be abnormal before considering a patient to be within a diagnostic category. Microalbumin Urine 0.7 See Note: mg/dL [facility] Comment: Reference Range: Reference Range Not established Microalb/Creat Ratio 37(H) <30 mcg/mg creat [facility] Comment: The ADA defines abnormalities in albumin excretion as follows: Category Result (mcg/mg creatinine) Normal <30 Microalbuminuria 30-299 Clinical albuminuria > OR = 300 The ADA recommends that at least two of three specimens collected within a 3-6 month period be abnormal before considering a patient to be within a diagnostic category. Microalbumin Urine 0.7 See Note: mg/dL [facility] Comment: Reference Range: Reference Range Not established Microalb/Creat Ratio 37(H) <30 mcg/mg creat [facility] Comment: The ADA defines abnormalities in albumin excretion as follows: Category Result (mcg/mg creatinine) Normal <30 Microalbuminuria 30-299 Clinical albuminuria > OR = 300 The ADA recommends that at least two of three specimens collected within a 3-6 month period be abnormal before considering a patient to be within a diagnostic category. Creatinine, Urine 19(L) 20 - 275 mg/dL [facility] 08/10/2020 10:5 8 AM EDT Nicole Montoya MD LAB URINE ORDERABLES Final Result [facility] [address] * HIV 1/2 ANTIGEN/ANTIBODY,FOURTH GENERATION W/RFL (08/10/2020 10:58 AM EDT) HIV-1/2 ANTIGEN AND ANTIBODIES, 4TH GENERATION W/ REFLEX NON-REACT SHANA NON-REACT SHANA [facility] Comment: HIV-1 antigen and HIV-1/HIV-2 antibodies were not detected. There is no laboratory evidence of HIV infection. PLEASE NOTE: This information has been disclosed to you from records whose confidentiality may be protected by state law. If your state requires such protection, then the state law prohibits you from making any further disclosure of the information without the specific written consent of the person to whom it pertains, or as otherwise permitted by law. A general authorization for the release of medical or other information is NOT sufficient for this purpose. For additional information please refer to http://Proformative.[employer]/faq/XZY216 (This link is being provided for informational/ educational purposes only.) The performance of this assay has not been clinically validated in patients less than 2 years old. HIV-1/2 ANTIGEN AND ANTIBODIES, 4TH GENERATION W/ REFLEX NON-REACT SHANA NON-REACT SHANA [facility] Comment: HIV-1 antigen and HIV-1/HIV-2 antibodies were not detected. There is no laboratory evidence of HIV infection. PLEASE NOTE: This information has been disclosed to you from records whose confidentiality may be protected by state law. If your state requires such protection, then the state law prohibits you from making any further disclosure of the information without the specific written consent of the person to whom it pertains, or as otherwise permitted by law. A general authorization for the release of medical or other information is NOT sufficient for this purpose. For additional information please refer to http://Proformative.[employer]/faq/VKQ265 (This link is being provided for informational/ educational purposes only.) The performance of this assay has not been clinically validated in patients less than 2 years old. HIV-1/2 ANTIGEN AND ANTIBODIES, 4TH GENERATION W/ REFLEX NON-REACT SHANA NON-REACT SHANA [facility] Comment: HIV-1 antigen and HIV-1/HIV-2 antibodies were not detected. There is no laboratory evidence of HIV infection. PLEASE NOTE: This information has been disclosed to you from records whose confidentiality may be protected by state law. If your state requires such protection, then the state law prohibits you from making any further disclosure of the information without the specific written consent of the person to whom it pertains, or as otherwise permitted by law. A general authorization for the release of medical or other information is NOT sufficient for this purpose. For additional information please refer to http://Proformative.TerraLUX/faq/VVT592 (This link is being provided for informational/ educational purposes only.) The performance of this assay has not been clinically validated in patients less than 2 years old. HIV-1/2 ANTIGEN AND ANTIBODIES, 4TH GENERATION W/ REFLEX NON-REACT SHANA NON-REACT SHANA [facility] Comment: HIV-1 antigen and HIV-1/HIV-2 antibodies were not detected. There is no laboratory evidence of HIV infection. PLEASE NOTE: This information has been disclosed to you from records whose confidentiality may be protected by state law. If your state requires such protection, then the state law prohibits you from making any further disclosure of the information without the specific written consent of the person to whom it pertains, or as otherwise permitted by law. A general authorization for the release of medical or other information is NOT sufficient for this purpose. For additional information please refer to http://Proformative.T[employer]/faq/JFH036 (This link is being provided for informational/ educational purposes only.) The performance of this assay has not been clinically validated in patients less than 2 years old. 08/10/2020 10:5 8 AM EDT Nicole Montoya MD LAB BLOOD ORDERABLES Final Result [facility] [address] * HPV High Risk PCR (04/09/2017 12:00 AM EDT) Swab Cervical swab / Unknown Historical Provider LAB MICROBIOLOGY - GENERA L ORDERABLES Final Result IMAGING * Hm Mammography (04/09/2017) Mammogram BIRADS 0 Anatomical Region Laterality Modality Other Historical Provider HEALTH MAINTENANCE Final Result * Pap Smear (04/09/2017 12:00 AM EDT) Swab us Historical Provider LAB CYTOLOGY ORDERABLES F inal Result IMAGING from Last 3 Months or Most Recently Relevant to Health Maintenance [place] [address] [place] [address] C3 Advance Directives Documents on File Type Date Recorded Patient Spine Surgeon Expl anation Advance Directives and Living Will 05/25/2024 Health Care Proxy 05/25/24 Care Teams Radiology Orderly Relationship Specialty Start Date End Date Tennille, MD Nicole [address] [place] [address] PCP - General Family Medicine 11/16/18 Angy De La Fuente, PharmD [address] [place] [address] Pharmacist Internal Medicine 04/01/24 Juan Carlos Ma MD [address] [place] [address] Vascular Surgery 10/05/24 Fouzia Wu [facility] Steam Table Associate Multi Site Leasing Consultant 09/11/23 [facility] Care 07/04/16
--- OUTSIDE RECORDS SUMMARY | 2025-09-07 14:29 | XMS_ITS | Encounter Summary ---
Author Organization [employer] Address 75 [facility] 7t [place] [address] Care Team Providers Care Communications Writer Name Role Phone Nicole Montoya MD Primary Care Provider [phone]- [phone] Angy De La Fuente PharmD Unavailable [phone] Juan Carlos Ma MD Unavailable [phone] Reason for Visit * Reason Onset Date Comments Letter 09/07/2025 Encounter Details Date Type Department Care Team (Late st Contact Info) Description 09/07/2025 Telephone [facility] MEDICINE [address] [place], [place] [phone] Nicole Montoya MD [address] [place], [place] [phone] Letter Social History Tobacco Use Types Packs/Day Years [...] with others, in a hotel, in a usp, living outside on the street, on a [...] to sit still 0 09/07/2025 10:32 AM EDT Rhys Pearson MA Becoming easily annoyed or irritable 0 09/07/2025 10:32 AM EDT Rhys Pearson MA Feeling afraid as if somethi ng awful might happen 1 09/07/2025 10:32 AM EDT Rhys Pearson MA RICARDO-7 Total Score 6 09/07/2025 10:32 AM EDT Roberto Pearson MA documented as of this encounter Miscellaneous Notes * Telephone Encounter - Uzma Godinez LPN - 09/07/2025 2:16 PM EDT Generated letter and placed in provider's folder for further processing. Patient will need to complete ITA upon fiber picker and it will need to be entered and closed in PHI. * Telephone Encounter - Nicole Montoya MD - 09/07/2025 11:02 AM EDT Pt is requesting more ours through [employer] and states PCP needs to request. I am not sure if this is true. Do you know how pt can request revaluation for her hours. 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 Thank you. documented in this encounter Plan of Treatment Upcoming Encounters Date Type Department Care Team (Late st Contact Info) Description 09/22/2025 2:00 PM EST Telemedicine [facility] MEDICINE [address] [place] [address] Angy De La Fuente PharmD [address] [place] [address] documented as of this encounter Goals Goal [...] documented as of this encounter Care Teams Communications Writer Relationship Specialty Start Date End Date Nicole Montoya MD [address] [place] [address] PCP - General Family Medicine 11/16/18 Angy De La Fuente, PharmD [address] [place] [address] Pharmacist Internal Medicine 04/01/24 Juan Carlos Ma MD [address] [place] [address] Vascular Surgery 10/05/24 Fouzia Wu [facility] Filter Tender Jelly Marking Machine Operator 09/11/23 [facility] Care 07/04/16 documented as of this encounter
--- OUTSIDE RECORDS SUMMARY | 2025-09-07 14:29 | XMS_ITS | Encounter Summary ---
Author Organization [employer] Address 75 [facility] 7t [place] [address] Care Team Providers Care Power Generation Plant Operator Name Role Phone Nicole Montoya MD Primary Care Provider [phone] Angy De La Fuente PharmD Unavailable Juan Carlos Ma MD Unavailable [phone] Reason for Visit * Reason Onset Date Comments Nurse Triage 06/30/2023 Encounter Details Date Type Department Care Team (Late st Contact Info) Description 06/30/2023 Telephone [facility] MEDICINE [address] [place], [place] [phone] Nicole Montoya MD [address] [place], [place] [phone] Nurse Triage Social History Tobacco Use Types Packs/Day Years [...] encounter Miscellaneous Notes * Telephone Encounter - Mitzi Guzman RN - 06/30/2023 9:49 AM EDT Called Aneta with [facility]. States this morning she saw pt and her blood sugar was 447. Pt did not have Lantus last night as it was not available at the pharmacy. Aneta is picking up the medication now from the pharmacy and pt will get back on her usual dose. Pt has had her other blood sugarmedications and has no current symptoms. Pt will have another visit this evening to check on her blo od sugar and her insulin intake. Advised to call back if further concerns. Called pt to triage, spoke to pt. Pt states no current symptoms. Advised to call back as needed. * Telephone Encounter - Brigitte Spargue - 06/30/2023 8:49 AM EDT Symptom: High Blood Sugar - Caller Reports (447) Outcome: Schedule a same-day appointment or talk to a nurse or provider today Reason: Caller denied all higher acuity questions The caller accepted this outcome documented in this encounter Plan of Treatment Upcoming Encounters Date Type Department Care Team (Late st Contact Info) Description 09/22/2025 2:00 PM EST Telemedicine [facility] MEDICINE [address] [place] [address] Angy De La Fuente PharmD [address] [place] [address] documented as of this encounter Visit Diagnoses Not on filedocumented in this encounter Additional Health Concerns Assessment Noted Time PHQ-9 Depression Total Score: 0 02/12/20 23 9:10 AM EDT documented as of this encounter Care Teams Power Generation Plant Operator Relationship Specialty Start Date End Date Nicole Montoya MD [address] [place] [address] PCP - General Family Medicine 11/16/18 Angy De La Fuente PharmD [address] [place] [address] Pharmacist Internal Medicine 04/01/24 Juan Carlos Ma MD [facility] [place] [address] Vascular Surgery 10/05/24 Fouzia Wu [facility] Special Service Officer Branch Chief 09/11/23 [facility] 07/04/16 documented as of this encounter
--- OUTSIDE RECORDS SUMMARY | 2025-09-07 14:29 | XMS_ITS | Encounter Summary ---
Author Organization [employer] Address 75 [facility] 7t [place] [address] Care Team Providers Care Clinical Staff Rn Name Role Phone Nicole Montoya MD Primary Care Provider [phone]- [phone] Angy De La Fuente PharmD Unavailable [phone] Juan Carlos Ma MD Unavailable [phone] Reason for Visit * Reason Onset Date Comments VNA 09/07/2025 Encounter Details Date Type Department Care Team (Late st Contact Info) Description 09/07/2025 Telephone [facility] MEDICINE [address] [place], [place] [phone] Nicole Montoya MD [address] [place], [place] [phone] VNA Social History Tobacco Use Types Packs/Day Years [...] with others, in a hotel, in a half-way, living outside on the street, on a [...] 09/07/2025 10:32 AM EDT Rhys Pearson MA IRCARDO-7 Total Score 6 09/07/2025 10:32 AM EDT Roberto Pearson MA documented as of this encounter Miscellaneous Notes * Telephone Encounter - Cheyenne Echavarria RN - 09/07/2025 1:23 PM EDT TC placed to Annetta POWELL to speak with pt VNA RN regarding PCP request below. A message was left for RN to call back the office. Direct extension given for callback. PCP Message Please let VNA know that we are ordering mammo, home sleep study and Cologuard. If they or CORONER TECHNICIAN can please help her with Cologuard. Thank you. * Telephone Encounter - Nicole Montoya MD - 09/07/2025 11:00 AM EDT Please let VNA know that we are ordering mammo, home sleep study and Cologuard. If they or CORONER TECHNICIAN can please help her with Cologuard. Thank you. documented in this encounter Plan of Treatment Upcoming Encounters Date Type Department Care Team (Late st Contact Info) Description 09/22/2025 2:00 PM EST Telemedicine [facility] MEDICINE [address] [place] [address] Angy De La Fuente PharmD [address] [place] [address] documented as of this encounter Goals Goal [...] documented as of this encounter Care Teams Clinical Staff Rn Relationship Specialty Start Date End Date Nicole Montoya MD [address] [place] [address] PCP - General Family Medicine 11/16/18 Angy De La Fuente PharmD [address] [place] [address] Pharmacist Internal Medicine 04/01/24 Juan Carlos Ma MD [address] [place] [address] Vascular Surgery 10/05/24 Fouzia Wu ICP Hydraulic Repairer Site Inspector 09/11/23 [facility] Care 07/04/16 documented as of this encounter
--- OUTSIDE RECORDS SUMMARY | 2025-09-07 14:29 | XMS_ITS | Encounter Summary ---
Author Organization [employer] Address 75 [facility] 7t [place] [address] Care Team Providers Care Hydrometeorologist Name Role Phone Nicole Montoya MD Primary Care Provider [phone] Angy De La Fuente PharmD Unavailable Juan Carlos Ma MD Unavailable [phone] Reason for Visit * Reason Onset Date Comments callback requested 09/16/2024 Medication Question 09/16/2024 Encounter Details Date Type Department Care Team (Late st Contact Info) Description 09/16/2024 Telephone [facility] MEDICINE [address] [place], [place] [phone] Nicole Montoya MD [address] [place], [place] [phone] callback requested; Medication Question Social History Tobacco Use Types Packs/Day Years [...] encounter Miscellaneous Notes * Telephone Encounter - Scott Kim - 09/16/2024 9:03 AM EDT Tc from Aneta Tamayo ([facility]) requesting a callback from PCP or [place] due to having a question of pt meds. Aneta Tamayo Phone - [phone] Fax- [phone] documented in this encounter Plan of Treatment Upcoming Encounters Date Type Department Care Team (Late st Contact Info) Description 09/22/2025 2:00 PM EST Telemedicine [facility] MEDICINE [address] [place], [place] [phone] Angy De La Fuente, PharmD [address] [place] [address] documented as of this encounter Goals Goal Patient Goal Type Associated Problems Recent Progress Patient-Stated? Author Blood Pressure < 140/90 Blood Pressure 139/60(2024 10:37 AM EDT) No Angy Gutierrez, PharmBrigitte Hemoglobin A1c < 8 Result Component 9(09/07/2025 11:30 AM EDT) No Angy Gutierrez PharmD documented as of this encounter Visit Diagnoses Not on filedocumented in this encounter Additional Health Concerns Assessment Noted Time PHQ-9 Depression Total Score: 15 024 1:58 PM EDT documented as of this encounter Care Teams Hydrometeorologist Relationship Specialty Start Date End Date Nicole Montoya MD [address] [place] [address] PCP - General Family Medicine 11/16/18 Angy De La Fuente PharmD [address] [place] [address] Pharmacist Internal Medicine 04/01/24 Juan Carlos Ma MD [address] [place] [address] Vascular Surgery 10/05/24 Fouzia Wu [facility] Cake Former Machine Maintenance Mechanic 09/11/23 [facility] 07/04/16 documented as of this encounter
--- OUTSIDE RECORDS SUMMARY | 2025-09-07 14:29 | XMS_ITS | Encounter Summary ---
Author Organization [email or web address] Address 75 [facility] 7t [place] [address] Care Team Providers Care Warp Dresser Name Role Phone Nicole Montoya MD Primary Care Provider [phone] Angy De La Fuente PharmD Unavailable Juan Carlos Ma MD Unavailable [phone] Reason for Visit * Reason Onset Date Comments Medication Question 06/23/2023 Encounter Details Date Type Department Care Team (Late st Contact Info) Description 06/23/2023 Telephone [facility] MEDICINE [address] [place], [place] [phone] Nicole Montoya MD [address] [place], [place] [phone] Medication Question Social History Tobacco Use Types [...] encounter Miscellaneous Notes * Telephone Encounter - Brigitte Nunez - 06/23/2023 1:30 PM EDT Tc from Francesca at [facility] requesting a call back, in regards to Trulicity 1.5 MG/0.5ML solution pen-injector script. States she would like to know why does patient have to call in every month for a refill instead of getting a script with a couple refills. Please call [phone]. documented in this encounter Plan of Treatment Upcoming Encounters Date Type Department Care Team (Late st Contact Info) Description 09/22/2025 2:00 PM EST Telemedicine [facility] MEDICINE [address] [place] [address] Angy De La Fuente PharmD [address] [place] [address] documented as of this encounter Visit Diagnoses Not on filedocumented in this encounter Additional Health Concerns Assessment Noted Time PHQ-9 Depression Total Score: 0 02/12/20 23 9:10 AM EDT documented as of this encounter Care Teams Warp Dresser Relationship Specialty Start Date End Date Nicole Montoya MD [address] [place] [address] PCP - General Family Medicine 11/16/18 Angy De La Fuente PharmD [address] [place] [address] Pharmacist Internal Medicine 04/01/24 Juan Carlos Ma MD [address] [place] [address] Vascular Surgery 10/05/24 Fouzia Wu ICP Property Worker Printing Technician 09/11/23 [facility] 07/04/16 documented as of this encounter
--- OUTSIDE RECORDS SUMMARY | 2025-09-07 14:29 | XMS_ITS | Encounter Summary ---
Author Organization [employer] Address [address] 7t [place] [address] Care Team Providers Care Supervisory Forester Name Role Phone Nicole Montoya MD Primary Care Provider +- [phone] Angy De La Fuente PharmD Unavailable [phone]- [phone] Juan Carlos Ma MD Unavailable [phone] Encounter Details Date Type Department Care Team (Latest Contact Info) Description 09/07/2025 Travel Social History Tobacco Use Types Packs/Day Years [...] AM EDT Roberto Pearson MA * Feeling bad about yourself - [...] Assessment Author Somewhat difficult 09/07/2025 10:38 AM EDRoberto Manley MA * Over the last 2 weeks, [...] annoyed or irritable 0 09/07/2025 10:32 AM Rhys Rodas MA Feeling afraid as if somethi ng awful might happen 1 09/07/2025 10:32 AM EDT Rhys Pearson MA RICARDO-7 Total Score 6 09/07/2025 10:32 AM EDT Roberto Pearson MA documented as of this encounter Plan of Treatment Upcoming Encounters Date Type Department Care Team (Late st Contact Info) Description 09/22/2025 2:00 PM EST Telemedicine [facility] MEDICINE [address] [place] [address] Angy De La Fuente, PharmD [address] [place] [address] documented as of this encounter Goals Goal Patient Goal Type Associated Problems Recent Progress Patient-Stated? Author Blood Pressure < 140/90 Blood Pressure 139/60(2024 10:37 AM EDT) No OscarsJaney Harveysa, PharmD Hemoglobin A1c < 8 Result Component 9(09/07/2025 11:30 AM EDT) No Angy Gutierrez, PharmD documented as of this encounter Visit Diagnoses Not on filedocumented in this encounter Additional Health Concerns Assessment Noted Time PHQ-9 Depression Total Score: 7 09/07/20 25 10:38 AM EDT documented as of this encounter Care Teams Supervisory Forester Relationship Specialty Start Date End Date Nicole Montoya MD [address] [place] [address] PCP - General Family Medicine 11/16/18 Angy De La Fuente, PharmD [address] [place] [address] Pharmacist Internal Medicine 04/01/24 Juan Carlos Ma MD [address] [place] [address] Vascular Surgery 10/05/24 Fouzia Wu [facility] Finisher Plate Vaccine Manager 09/11/23 [facility] Care 07/04/16 documented as of this encounter
--- OUTSIDE RECORDS SUMMARY | 2025-09-07 14:29 | XMS_ITS | Encounter Summary ---
Author Organization [employer] Address 75 [facility] 7t [place] [address] Care Team Providers Care Boiler Blower Name Role Phone Nicole Montoya MD Primary Care Provider [phone] Angy De La Fuente PharmD Unavailable Juan Carlos Ma MD Unavailable [phone] Reason for Visit * Reason Onset Date Comments Medication 08/13/2023 Encounter Details Date Type Department Care Team (Late st Contact Info) Description 08/13/2023 Telephone [facility] MEDICINE [address] [place], [place] [phone] Nicole Montoya MD [address] [place], [place] [phone] Medication Social History Tobacco Use Types Packs/Day Years [...] Miscellaneous Notes * Telephone Encounter - Brigitte Salinasnez - 08/13/2023 1:16 PM EDT Tc from [place] at [facility] requesting a new script for a freestyle valery sensor and device. Patient needs to be more aware of her blood sugar levels. Patient only checks levels when nurse checks them. documented in this encounter Plan of Treatment Upcoming Encounters Date Type Department Care Team (Late st Contact Info) Description 09/22/2025 2:00 PM EST Telemedicine [facility] MEDICINE [address] [place] [address] Angy De La Fuente PharmD [address] [place] [address] documented as of this encounter Visit Diagnoses Not on filedocumented in this encounter Additional Health Concerns Assessment Noted Time PHQ-9 Depression Total Score: 0 02/12/20 9:10 AM EDT documented as of this encounter Care Teams Boiler Blower Relationship Specialty Start Date End Date Nicole Montoya MD [address] [place] [address] PCP - General Family Medicine 11/16/18 Angy De La Fuente, PharmD [address] [place] [address] Pharmacist Internal Medicine 04/01/24 Juan Carlos Ma MD [address] [place] [address] Vascular Surgery 10/05/24 Fouzia Wu [facility] Cytogenetic Technician Machine Riveter 09/11/23 [facility] Care 07/04/16 documented as of this encounter
--- OUTSIDE RECORDS SUMMARY | 2025-09-07 14:30 | XMS_ITS | Encounter Summary ---
Author Organization [employer] Address [address] [facility] 7[address] [place] [address] Care Team Providers Care Derrick Boat Lever Operator Name Role Phone Nicole Montoya MD Primary Care Provider [phone]- [phone] Angy De La Fuente PharmD Unavailable Juan Carlos Ma MD Unavailable [phone] Reason for Visit * Reason Onset Date Comments Verbal Orders 01/15/2024 Encounter Details Date Type Department Care Team (Late st Contact Info) Description 01/15/2024 Telephone [facility] [address] [place], [place] [phone] Nicole Montoya MD [address] [place], [place] [phone] Verbal Orders Social History Tobacco Use Types Packs/Day Years Used Date Smoking Tobacco: Never Smokeless Tobacco: Never Depression Answer Date Recorded Patient Health Questionnaire-9 Score 0 02/11/2023 Housing Stability Answer Date Recorded What is your housing situation today? I have rosendo bautista 09/02/[address] you li ve. Do you have problems with any of the following? None of the above 09/02/2023 Food Insecurity Answer Date Recorded Within the past 12 months, y ou worried that your food would run out before you got money to buy more: Never True 09/02/2023 Within the past 12 months,th e food you bought just didn't last and you didn't have enough money to get more: Never True Transportation Answer Date Recorded In the past 12 months, has l ack of transportation kept you from medical appts, meetings, work or from getting things needed for daily living? No 09/02/2023 Utilities Answer Date Recorded In the past 12 months, has t he electric, gas, oil or water company threatened to shut off services in your home? No 09/02/2023 Depression Answer Date Recorded Patient Health Questionnaire-2 Score 0 02/11/2023 Comments Unknown Sex and Gender Information Value Date Recorded Sex Assigned at Female 09/15/2022 10:16 AM EDT Legal Sex Female 10:16 AM EDT Gender Identity Female 09/15/2022 10:16 AM EDT Sexual Orientation Choose not to disclose 2021 10:16 AM EDT documented as of this encounter Miscellaneous Notes * Telephone Encounter - aKsie Shipman RN - 01/15/2024 2:26 PM EST Telephone call from [facility], Gave verbal for wound care and previous medication managment to expedite process. * Telephone Encounter - Amador Vazquez - 01/15/2024 12:00 PM EST Tc from [facility] requesting orders to resume Medical Nursing for wound care and medication and wanted to inform the provider the patient went to [facility] rehab and left without medical clearance documented in this encounter Plan of Treatment Upcoming Encounters Date Type Department Care Team (Late st Contact Info) Description 09/22/2025 2:00 PM EST Telemedicine [facility] [address] [place] [address] Angy De La Fuente, PharmD [address] [place] [address] documented as of this encounter Visit Diagnoses Not on filedocumented in this encounter Additional Health Concerns Assessment Noted Time PHQ-9 Depression Total Score: 0 02/12/20 23 9:10 AM EDT documented as of this encounter Care Teams Derrick Boat Lever Operator Relationship Specialty Start Date End Date Nicole Montoya MD [address] [place] [address] PCP - General Family Medicine 11/16/18 Angy De La Fuente, JerseyD [address] [place] [address] Pharmacist Internal Medicine 04/01/24 Juan Carlos Ma MD [address] [place] [address] Vascular Surgery 10/05/24 Fouzia Wu [facility] Cad Engineer Furs Salesperson 09/11/23 [facility] Care 07/04/16 documented as of this encounter
--- OUTSIDE RECORDS SUMMARY | 2025-09-07 14:30 | XMS_ITS | Encounter Summary ---
Author Organization [employer] Address [address] [facility] 7t [place] [address] Care Team Providers Care Calciner Operator Name Role Phone Nicole Montoya MD Primary Care Provider [phone]- [phone] Angy De La Fuente PharmD Unavailable [phone] Juan Carlos Ma MD Unavailable [phone] Reason for Visit * Reason Onset Date Comments Nurse Triage 04/20/2025 Encounter Details Date Type Department Care Team (Late st Contact Info) Description 04/20/[address] [facility] [address] [place], [place] [phone] Nicole Montoya MD [address] [place], [place] [phone] Nurse Triage Social History Tobacco Use Types [...] encounter Miscellaneous Notes * Telephone Encounter - Anisha Yoon RN - 04/20/2025 3:15 PM EDT Pt has televisit with Faye tomorrow. Telephone call placed to pt with assistance from BREANA Maciel for translation. Informed PCP will not be ordering labs. If Sx with hyperglycemia, needs to be seen and getting ambulance transportation can take >1 week. Advised if symptomatic got to the ED. Pt states is feeling well, just was worried about BG. Informed of televisit tomorrow @ 1:30 with pharmacist for medication management. Advised if nurse can't come at that time, have her write down BG log readings so she can give to pharmacist. Gave ED precautions and NTTS info. Pt verbalized understanding and denied having any further questions or concerns at this time. Please do not order any tests from our office due to very difficult to follow up with [facility] for this issue and has been on going for years. Please place referral with [facility] with our PharmD, WILI to see if can do televisits with nurses there. If pt symptomatic, plesae advise instead or ER. Thank you. * Telephone Encounter - Renuka Benito RN - 04/20/2025 12:01 PM EDT Per chart review, pt on Novolog sliding scale, Lantus 56 units BID. No sign language interpreter needed as this proposal lead writer speaks [place] Citizen. Call returned to [facility] Chambers to triage below. Reports having elevated fasting BS of 427mg/dL this morning. Per pt having increased thirst. Pt denies any JANI sx, fever, vomiting or pain with passing urine. Pt states has been without insulin x 3 days. Reports following DM diet. [facility], confirmed pt had insulin deliveredon 03/30, 15 mL Flexpen. Pt rechecked BS while metal control coordinator , reading of 438mg/dL. Per pt had breakfast after Lantus 56 units at 8am. Pt states does not feel Sliding Scale is providing good BS control. Pt states has [facility] via [facility]. Pt unable to come into office due to requiring ambulance transport. Pt advised will send to PCP to review and further advise primary care team nurses if an orders to becalled into [facility] for POC blood work or UA as well as any changes to current med regimen. Updated pt preferred pharmacy in chart as incorrect one on file. Reviewed home care advise, ER precautions and reasons to call back. Protocol Used: Diabetes - High Blood Sugar (Adult) Protocol-Based Disposition: Discuss with PCP and Callback by Nurse within 1 Hour Video visit offer not recorded Positive Triage Question: * Blood glucose > 400 mg/dL (22.2 mmol/L) * All higher-acuity triage questions were negative Care Advice Discussed: * High Blood Sugar (Hyperglycemia) * Treatment - Liquids * Continue Insulin * Daily Blood Glucose Goals * Reasons To Call Back - Blood glucose over 300 mg/dL (16.7 mmol/L), two or more times in a row. - Vomiting lasting over 4 hours or unable to drink any fluids - Rapid breathing occurs - You become worse * Telephone Encounter - Tyson Chambers - 04/20/2025 11:48 AM EDT Symptom: High Blood Sugar - Caller Reports Outcome: Talk to a nurse or provider within 15 minutes Reason: Known blood sugar above 300 Please contact pt at [phone]. ([place] Citizen Speaker) documented in this encounter Plan of Treatment Upcoming Encounters Date Type Department Care Team (Late st Contact Info) Description 09/22/2025 2:[address] [facility] [address] [place] [address] OscarsAngy Guardado, PharmD [address] [place] [address] documented as of this encounter Goals Goal Patient Goal Type Associated Problems Recent Progress Patient-Stated? Author Blood Pressure < 140/90 Blood Pressure 139/60(2024 10:37 AM EDT) No Piers-Gambl e, Angy, PharmD Hemoglobin A1c < 8 Result Component 9(09/07/2025 11:30 AM EDT) No Piers-Gambl e, Angy, PharmD documented as of this encounter Visit Diagnoses Not on filedocumented in this encounter Additional Health Concerns Assessment Noted Time PHQ-9 Depression Total Score: 15 024 1:58 PM EDT documented as of this encounter Care Teams Calciner Operator Relationship Specialty Start Date End Date Nicole Montoya MD [address] [place] [address] PCP - General Family Medicine 11/16/18 OscarsAngy Guardado, PharmD [address] [place] [address] Pharmacist Internal Medicine 04/01/24 Juan Carlos Ma MD [address] [place] [address] Vascular Surgery 10/05/24 Fouzia Wu [facility] Extractor Plant Operator Oil Well Fishing Tool Technician 09/11/23 [facility] 07/04/16 documented as of this encounter
--- OUTSIDE RECORDS SUMMARY | 2025-09-07 14:30 | XMS_ITS | Encounter Summary ---
Author Organization [employer] Address [address] [facility] 7t [place] [address] Care Team Providers Care Cytogenetic Technician Name Role Phone Nicole Montoya MD Primary Care Provider [phone]- [phone] Angy De La Fuente PharmD Unavailable Juan Carlos Ma MD Unavailable [phone] Encounter Details Date Type Department Care Team (Late st Contact Info) Description 01/15/2024 Telephone [facility] 230 [place], [place] [phone] Nicole Montoya MD 230 [place], [place] [phone] Social History Tobacco Use Types Packs/Day Years Used Date Smoking Tobacco: Never Smokeless Tobacco: Never Depression Answer Date Recorded Patient Health Questionnaire-9 Score 0 02/11/2023 Housing Stability Answer Date Recorded What is your housing situation today? I have rosendomar bautista 09/02/[address] you [...] t he electric, gas, oil or water [employer] threatened to shut off services in your [...] Info) Description 09/22/2025 2:00 PM EST Telemedicine [facility] [address] [place] [address] Angy De La Fuente PharmD [address] [place] [address] documented as of this encounter Visit Diagnoses Not on filedocumented in this encounter Additional Health Concerns Assessment Noted Time PHQ-9 Depression Total Score: 0 02/12/20 23 9:10 AM EDT documented as of this encounter Care Teams Cytogenetic Technician Relationship Specialty Start Date End Date Nicole Montoya MD [address] [place] [address] PCP - General Family Medicine 11/16/18 Angy De La Fuente PharmD [address] [place] [address] Pharmacist Internal Medicine 04/01/24 Juan Carlos Ma MD [address] [place] [address] Vascular Surgery 10/05/24 Fouzia Wu [facility] Inletter Network Admin 09/11/23 [facility] 07/04/16 documented as of this encounter
--- OUTSIDE RECORDS SUMMARY | 2025-09-07 14:30 | XMS_ITS | Encounter Summary ---
Author Organization [facility] Address [address] [place] [address] Care Team Providers Care Picture Frames Inspector Name Role Phone Nicole Montoya MD Primary Care Provider [phone] Encounter Details Date Type Department Care Team (Latest Contact Info) Description 03/16/2025 Lab Requisition [facility] - Main Lab [address] [facility] [place] [address] Nicole Montoya MD [address] [phone] Type 2 diabetes mellitus with unspecified complications (CMS/HCC V24, CMS/HCC V28); Type 2 diabetes mellitus without complications (CMS/HCC V24, CMS/HCC V28) Social History Tobacco Use Types Packs/Day Years Used Date Smoking Tobacco: Never Assessed Comments Unknown Sex and Gender Information Value Date Recorded Sex Assigned at Female 02/03/2025 12:37 PM EDT Legal Sex Female 5:49 PM EST Gender Identity Female 02/03/2025 12:37 PM EDT Sexual Orientation Straight 02/03/2025 12 :46 PM EDT documented as of this encounter Plan of Treatment Upcoming Encounters Date Type Department Care Team (Late st Contact Info) Description 10/02/2025 2:15 PM EST Appointment [facility] CT Scan [address] [place] [address] 10/09/2025 10:30 AM EST Office Visit Vascular Surgery - [place] [address] [place] [address] Juan Carlos Ma MD 230 [place] [phone] documented as of this encounter Procedures Procedure Name Priority Date/Time Associated Diagnosis Comments HEMOGLOBIN A1C Routine 03/16/2025 12:00 AM EDT Type 2 diabetes mellitus with unspecified complications ([facility] V24, [facility] V28) Type 2 diabetes mellitus without complications ([facility] V24, [facility] V28) documented in this encounter Results * (ABNORMAL) Hemoglobin A1c (03/16/2025 12:00 AM EDT) Hemoglobin A1C 10.3(H) <6.5 % LAB CHEMISTRY METHOD 03/16/2025 10:20 PM EDT [facility] Mean Bld Glu Estim. 249 mg/dL LAB CHEMISTRY METHOD 03/16/2025 10:20 PM EDT [facility] Blood Venous blood specimen / Unknown 03/16/2025 03/16/2025 7:29 PM EDT us Nicole Montoya MD LAB BLOOD ORDERABLES Final Result [facility] [address] [place] [address], documented in this encounter Visit Diagnoses Diagnosis Type 2 diabetes mellitus with unspecified complications ([facility] V24, [facility] V28) Type 2 diabetes mellitus without complications ([facility] V24, [facility] V28) documented in this encounter Care Teams Picture Frames Inspector Relationship Specialty Start Date End Date Nicole Montoya MD [address] [place] [phone] PCP - General 12/30/04 documented as of this encounter
--- OUTSIDE RECORDS SUMMARY | 2025-09-07 14:30 | XMS_ITS | Encounter Summary ---
Author Organization [employer] Address [address] [facility] 7t [place] [address] Care Team Providers Care Acute Care Occupational Therapist Name Role Phone Nicole Montoya MD Primary Care Provider [phone] Angy De La Fuente PharmD Unavailable [phone] Juan Carlos Ma MD Unavailable [phone] Reason for Visit * Reason Onset Date Comments Durable Medical Equipment 02/15/2025 Encounter Details Date Type Department Care Team (Late st Contact Info) Description 02/15/2025 Telephone [facility] 230 [place], [place] [phone] Nicole Montoya MD [address] [place] [address] Durable Medical Equipment Social History Tobacco Use Types Packs/Day Years [...] encounter Miscellaneous Notes * Telephone Encounter - Veronica La - 02/15/2025 12:15 PM EDT Tc from [facility] requesting: - Wheelchair - Adult Diapers 1XL documented in this encounter Plan of Treatment Upcoming Encounters Date Type Department Care Team (Late st Contact Info) Description 09/22/2025 2:00 PM EST Telemedicine [facility] [address] [place] [address] Angy De La Fuente PharmD [address] [place] [address] documented as of this encounter Goals Goal [...] documented as of this encounter Care Teams Acute Care Occupational Therapist Relationship Specialty Start Date End Date Nicole Montoya MD [address] [place] [address] PCP - General Family Medicine 11/16/18 Angy De La Fuente, PharmD [address] [place] [address] Pharmacist Internal Medicine 04/01/24 Juan Carlos Ma MD [address] [place] [address] Vascular Surgery 10/05/24 Fouzia Wu [facility] Venetian Blind Cleaner And Repairer Guide Domestic Tour 09/11/23 [facility] 07/04/16 documented as of this encounter
--- OUTSIDE RECORDS SUMMARY | 2025-09-07 14:30 | XMS_ITS | Encounter Summary ---
Author Organization [facility] Address [address] [place] [address] Care Team Providers Care Photo Specialist Name Role Phone Nicole Montoya MD Primary Care Provider [phone] Encounter Details Date Type Department Care Team (Latest Contact Info) Description 12/16/2024 Lab Requisition [facility] - Main Lab [address] [facility] [place] [address] Nicole Montoya MD [address] [phone] Bipolar disorder, current episode depressed, severe, with psychotic features (CMS/HCC V24, CMS/HCC V28); Type 2 diabetes mellitus with unspecified complications (CMS/HCC V24, CMS/HCC V28) Social History [...] Info) Description 10/02/2025 2:15 PM EST Appointment [facility] CT Scan [address] [place] [address] 10/09/2025 10:30 AM EST Office Visit Vascular Surgery - [place] [address] [place] [address] Juan Carlos Ma MD [address] [place] [phone] documented as of this encounter Procedures Procedure Name Priority Date/Time Associated Diagnosis Comments HEMOGLOBIN A1C Routine 12/16/2024 9:35 AM EST Bipolar disorder, current episode depressed, severe, with psychotic features (CMS/HCC) Type 2 diabetes mellitus with unspecified complications (CMS/HCC) documented in this encounter Results * (ABNORMAL) Hemoglobin A1c (12/16/2024 9:35 AM EST) Hemoglobin A1C 9.8(H) <6.5 % LAB CHEMISTRY METHOD 12/16/2024 1:50 PM EST [facility] Mean Bld Glu Estim. 235 mg/dL LAB CHEMISTRY METHOD 12/16/2024 1:50 PM EST [facility] Blood Venous blood specimen / Unknown 12/16/2024 9:35 AM EST 12/16/2024 10:44 AM EST us Nicole Montoya MD LAB BLOOD ORDERABLES Final Result [facility] [address] [place] [address], documented in this encounter Visit Diagnoses Diagnosis Bipolar disorder, current episode depressed, severe, with psychotic features (CMS/HCC V24, CMS/HCC V28) Type 2 diabetes mellitus with unspecified complications (CMS/HCC V24, CMS/HCC V28) documented in this encounter Care Teams Photo Specialist Relationship Specialty Start Date End Date Nicole Montoya MD [address] [place] [phone] PCP - General 12/30/04 documented as of this encounter
--- OUTSIDE RECORDS SUMMARY | 2025-09-07 14:30 | XMS_ITS | Clinical Summary ---
Author Organization [address] [place] [address] Address [address] [place] [address] Phone Care Team Providers Care Mold Bunch Trimmer Name Role Phone Nicole Montoya MD Primary Care Provider [phone]- [phone] Allergies No known active allergies Medications acetaminophen (TYLENOL) 500 mg tablet Take 1 Tablet by mouth every 6 hours as needed. Active atorvastatin (LIPITOR) 40 mg tablet Take 1 Tablet by mouth daily. Active benztropine (COGENTIN) 1 mg tablet Take 1 Tablet by mouth 2 times daily. Active bisacodyL (DULCOLAX) [address] rectally. Active ferrous sulfate 325 mg (65 mg elemental iron) tablet Take 1 Tablet by mouth daily. Active insulin glargine (LANTUS) 100 unit/mL injection Inject into the skin at bedtime. Active lamoTRIgine (LaMICtal) 100 mg tablet Take 1 Tablet by mouth daily. Active lamoTRIgine (LaMICtal) 25 mg tablet Take 1 Tablet by mouth daily. Active melatonin 3 mg tablet Take by mouth. Active oxyCODONE (ROXICODONE) 5 mg immediate release tablet Active polyethylene glycol (PEG) 17 gram/dose oral powder Take 17 g by mouth daily. Active rivaroxaban (XARELTO) 20 mg tablet Take by mouth. Active senna-docusate (PERICOLACE) 8.6-50 mg per tablet Take 1 Tablet by mouth daily. Active venlafaxine (EFFEXOR) 37.5 mg tablet Take 1 Tablet by mouth 3 times daily. Active clopidogreL (PLAVIX) 75 mg tablet Take 1 tablet (75 mg total) by mouth daily. 03/03/20 24 Active gabapentin (NEURONTIN) 300 mg capsule Take 1 capsule (300 mg total) by mouth 3 times daily. 02/26/20 Active metFORMIN (GLUCOPHAGE) 1,000 mg tablet Take 1 tablet (1,000 mg total) by mouth. 09/01/20 Active aspirin (Adult Aspirin Regimen) 81 mg EC tabletIndications:Per ipheral arterial disease with history of revascularization ([facility] V24) Take 1 tablet (81 mg total) by mouth 1 (one) time each day. 90 tablet 3 08/09/20 Active Adult Aspirin Regimen 81 mg EC tabletIndications:Per ipheral arterial disease with history of revascularization ([facility] V24) TAKE 1 TABLET (81 MG TOTAL) BY MOUTH 1 (ONE) TIME EACH DAY. 90 tablet 3 08/02/20 25 025 Discontin ued(Reord er) Surgical History Surgery Date Site/Laterality Comments OTHER SURGICAL HISTORY 12/21/2023 PROCEDURE: MS TEAEC W/WO PATCH GRAFT ABDOMINAL AORTA OTHER SURGICAL HISTORY 12/31/2023 Right PROCEDURE: MS AMPUTATION LEG THROUGH TIBIA&FIBULA Social History Tobacco Use Types Packs/Day Years Used Date Smoking Tobacco: Never Assessed Comments Unknown Sex and Gender Information Value Date Recorded Sex Assigned at Female 02/03/2025 12:37 PM EDT Legal Sex Female 5:49 PM EST Gender Identity Female 02/03/2025 12:37 PM EDT Sexual Orientation Straight 02/03/2025 12 :46 PM EDT Obstetrics History Last Filed Vital Signs Vital Sign Reading Time Taken Comments Blood Pressure 110/66 10/03/2024 1:52 PM EST Pulse 88 10/03/2024 1:52 PM EST Temperature - - Respiratory Rate 16 10/03/2024 1:52 PM EST Oxygen Saturation - - Inhaled Oxygen Concentration - - Weight - - Height - - Body Mass Index - - Plan of Treatment Upcoming Encounters Date Type Department Care Team (Late st Contact Info) Description 10/02/2025 2:15 PM EST Appointment [facility] CT Scan [address] [place] [address] 10/09/2025 10:30 AM EST Office Visit Vascular Surgery - [place] [facility] [address] [place] [address] Juan Carlos Ma MD [address] [place] [phone] Health Maintenance Due Date Last Done Comments Breast Cancer Screening 1971 Colorectal Cancer Screening: Colonoscopy 1971 Diabetes: Annual GFR (Glomerular Filtration Rate) 1971 Diabetes: Annual Foot Exam 1981 Diabetes: Annual Retina Eye Exam 1981 Hepatitis A Vaccines (1 of 2 - Risk 2-dose series) 1990 Cervical Cancer Screening: Pap Smear 04/09/2020 04/09/2017 RSV Immunization Adult Patients (1 - Risk 50-74 years 1-dose series) 2021 Zoster Vaccines (1 of 2) 2021 Hepatitis C Screening 06/14/2024 Social Influencers of Health Screening 06/14/2024 Hepatitis B Vaccines (2 of 3 - 19+ 3-dose series) 06/22/2024 05/25/2024 Diabetes: Annual Urine Albumin-Creatinine Ratio (uACR) 10/03/2024 Hypertension/CHF/CAD Annual BMP Blood Test 10/03/2024 Depression Screening 11/16/2024 DTaP,Tdap,and Td Vaccines (4 - Td or Tdap) 01/22/2025 01/22/2015, 10/24/2010, 03/24/2005 Influenza Vaccine (#1) 2025 , 02/03/2019, 08/06/2015, Additional history exists Diabetes: Blood Sugar Control Test (HGBA1C) 09/16/2025 03/16/2025, 12/16/2024, 09/14/2024 Cholesterol Screening (Lipid Panel) 05/25/2029 05/25/2024 HIV Screening Completed 08/10/2020 Pneumococcal Vaccine: 50+ Years Completed 05/25/2024, 01/22/2015, 08/28/2011, Additional history exists COVID-19 Vaccine Completed 09/14/2024, , 03/19/2021 HIB Vaccines Aged Out No longer eligi ble based on patient's age to complete this topic HPV Vaccines Aged Out No longer eligi ble based on patient's age to complete this topic IPV Vaccines Aged Out No longer eligi ble based on patient's age to complete this topic MMR Vaccines Aged Out No longer eligi ble based on patient's age to complete this topic Meningococcal ACWY Vaccine Aged Out N o longer eligible based on patient's age to complete this topic Meningococcal B Vaccine Aged Out No l onger eligible based on patient's age to complete this topic RSV Immunization Patients Under 20 months Aged Out No longer eligible based on patient's age to complete this topic Varicella Vaccines Aged Out No longer eligible based on patient's age to complete this topic Procedures Procedure Name Priority Date/Time Associated Diagnosis Comments HEMOGLOBIN A1C Routine 03/16/2025 12:00 AM EDT Type 2 diabetes mellitus with unspecified complications ([facility] V24, [facility] V28) Type 2 diabetes mellitus without complications ([facility] V24, [facility] V28) from Last 3 Months or Most Recently Relevant to Health Maintenance Results * (ABNORMAL) Hemoglobin A1c (03/16/2025 12:00 AM EDT) Hemoglobin A1C 10.3(H) <6.5 % LAB CHEMISTRY METHOD 03/16/2025 10:20 PM EDT [facility] Mean Bld Glu Estim. 249 mg/dL LAB CHEMISTRY METHOD 03/16/2025 10:20 PM EDT [facility] Blood Venous blood specimen / Unknown 03/16/2025 03/16/2025 7:29 PM EDT Nicole Montoya MD LAB BLOOD ORDERABLES Final Result [facility] [address] [place] [address], from Last 3 Months or Most Recently Relevant to Health Maintenance Insurance [place]ICA[place] Advance Directives Documents on File Type Date Recorded Patient Credit Administration Officer Expl [facility] Care Decision (hx) 01/11/2024 AD NORTH DIRECTIVE Care Teams Mold Bunch Trimmer Relationship Specialty Start Date End Date Nicole Montoya MD [address] [place] [phone] PCP - General 12/30/04
--- OUTSIDE RECORDS SUMMARY | 2025-09-07 14:30 | XMS_ITS | Encounter Summary ---
Author Organization [employer] Address [address] [facility] 7t [place] [address] Care Team Providers Care News Correspondent Name Role Phone Nicole Montoya MD Primary Care Provider [phone]- [phone] Angy De La Fuente PharmD Unavailable [phone]- [phone] Juan Carlos Ma MD Unavailable [phone] Reason for Visit * Reason Onset Date Comments Med Refill 03/13/2025 Encounter Details Date Type Department Care Team (Late st Contact Info) Description 03/13/2025 Telephone [facility] MEDICINE [address] [place], [place] [phone] Nicole Montoya MD [address] [place], [place] [phone] Med Refill Social History Tobacco Use Types Packs/Day Years [...] the past 12 months, has t he [employer], gas, oil or water company threatened to [...] * Telephone Encounter - Scott Kim - 03/13/2025 1:31 PM EDT TC from pt requesting medication refill. Medications needing refill : insulin glargine (Lantus SoloStar) 100 UNIT/ML pen gabapentin (Neurontin) 300 MG capsule To be sent to: [facility] - [place], [place] - [address] documented in this encounter Plan of Treatment Upcoming Encounters Date Type Department Care Team (Late st Contact Info) Description 09/22/2025 2:00 PM EST Telemedicine [facility] [address] [place] [address] Angy De La Fuente, PharmD [address] [place] [address] documented as of this encounter Goals Goal [...] documented as of this encounter Care Teams News Correspondent Relationship Specialty Start Date End Date Nicole Montoya MD [address] [place] [phone] PCP - General Family Medicine 11/16/18 Angy De La Fuente PharmD [address] [place] [address] Pharmacist Internal Medicine 04/01/24 Juan Carlos Ma MD [address] [place] [address] Vascular Surgery 10/05/24 Fouzia Wu [facility] Bus Person Casino Slot Supervisor 09/11/23 [facility] 07/04/16 documented as of this encounter
--- OUTSIDE RECORDS SUMMARY | 2025-09-07 14:30 | XMS_ITS | Encounter Summary ---
Author Organization [employer] Address [address] [facility] 7t [place] [address] Care Team Providers Care Cook Fry Name Role Phone Lindsay, Nicole HERNANDEZ Primary Care Provider [phone]- [phone] Angy De La Fuente PharmD Unavailable [phone]- [phone] Juan Carlos Ma MD Unavailable [phone] Reason for Visit * Reason Comments Med Refill Encounter Details Date Type Department Care Team (Late st Contact Info) Description 04/07/2024 Refill [facility] MEDICINE [address] [place], [place] [phone] Graham Anaya MD [address] [place], [place] [phone] S/P amputation of lesser toe, left (CMS/HCC); Aortic mural thrombus (CMS/HCC) Social History Tobacco Use Types Packs/Day Years [...] Description 09/22/2025 2:00 PM EST Telemedicine [facility] MED[facility]INE [address] [place] [address] Angy De La Fuente, PharmD [address] [place] [address] documented as of this encounter Goals Goal Patient Goal Type Associated Problems Recent Progress Patient-Stated? Author Blood Pressure < 140/90 Blood Pressure 139/60(2024 10:37 AM EDT) No Oscars-Janey Hallsa, PharmD Hemoglobin A1c < 8 Result Component 9(09/07/2025 11:30 AM EDT) No Oscars-Janey Hallsa, PharmD documented as of this encounter Visit Diagnoses Diagnosis S/P amputation of lesser toe, left (CMS/HCC) Aortic mural thrombus (CMS/HCC) (HCC) documented in this encounter Additional Health Concerns Assessment Noted Time PHQ-9 Depression Total Score: 15 024 1:58 PM EDT documented as of this encounter Care Teams Cook Fry Relationship Specialty Start Date End Date Nicole Montoya MD [address] [place] [address] PCP - General Family Medicine 11/16/18 Angy De La Fuente, JerseyD [address] [place] [address] Pharmacist Internal Medicine 04/01/24 Juan Carlos Ma MD [address] [place] [address] Vascular Surgery 10/05/24 Fouzia Wu [facility] Cloth Mercerizer Back Tender Director Of Strategic Programs 09/11/23 [facility] 07/04/16 documented as of this encounter
--- OUTSIDE RECORDS SUMMARY | 2025-09-07 14:30 | XMS_ITS | Encounter Summary ---
Author Organization [employer] Address [address] [facility] 7t [place] [address] Care Team Providers Care Revenue Field Auditor Name Role Phone Nicole Montoya MD Primary Care Provider [phone] Angy De La Fuente PharmD Unavailable Juan Carlos Ma MD Unavailable [phone] Reason for Visit * Reason Onset Date Comments Med Refill 04/27/2024 Encounter Details Date Type Department Care Team (Late st Contact Info) Description 04/27/2024 Telephone [facility] MEDICINE [address] [place], [place] [phone] Nicole Montoya MD [address] [place], [place] [phone] Med Refill Social History Tobacco Use Types [...] encounter Miscellaneous Notes * Telephone Encounter - Vandana Presley - 04/27/2024 8:41 AM EDT TC from pt requesting medication refill. Medications needing refill : oxyCODONE (Roxicodone) 5 MG immediate release tablet To be sent to: [facility] - [place], [place] - [address] documented in this encounter Plan of Treatment Upcoming Encounters Date Type Department Care Team (Late st Contact Info) Description 09/22/2025 2:00 PM EST Telemedicine [facility] MEDICINE [address] [place] [address] Angy De La Fuente PharmD [address] [place] [address] documented as of this encounter Goals Goal Patient Goal Type Associated Problems Recent Progress Patient-Stated? Author Blood Pressure < 140/90 Blood Pressure 139/60(2024 10:37 AM EDT) No Angy Gutierrez, PharmD Hemoglobin A1c < 8 Result Component 9(09/07/2025 11:30 AM EDT) No Angy Gutierrez, PharmD documented as of this encounter Visit Diagnoses Not on filedocumented in this encounter Additional Health Concerns Assessment Noted Time PHQ-9 Depression Total Score: 15 024 1:58 PM EDT documented as of this encounter Care Teams Revenue Field Auditor Relationship Specialty Start Date End Date Nicole Montoya MD [address] [place] [address] PCP - General Family Medicine 11/16/18 Angy De La Fuente, JerseyD [address] [place] [address] Pharmacist Internal Medicine 04/01/24 Juan Carlos Ma MD [address] [place] [address] Vascular Surgery 10/05/24 Fouzia Wu [facility] Pecan Grower Supervisor Concrete Block Plant 09/11/23 [facility] 07/04/16 documented as of this encounter
--- OUTSIDE RECORDS SUMMARY | 2025-09-07 14:30 | XMS_ITS | Encounter Summary ---
Author Organization [employer] Address [address] [facility] 7t [place] [address] Care Team Providers Care Inorganic Chemical Technician Name Role Phone Nicole Montoya MD Primary Care Provider [phone]- [phone] Angy De La Fuente PharmD Unavailable [phone] Juan Carlos Ma MD Unavailable [phone] Reason for Visit * Reason Onset Date Comments Med Refill 11/11/2024 Encounter Details Date Type Department Care Team (Late st Contact Info) Description 11/11/2024 Telephone [facility] MEDICINE [address] [place], [place] [phone] Nicole Montoya MD [address] [place], [place] [phone] Med Refill Social History Tobacco Use Types [...] the past 12 months, has t he [employer], gas, oil or water company threatened to [...] encounter Miscellaneous Notes * Telephone Encounter - Radha Rodríguez RN - 11/18/2024 10:49 AM EST Telephone call to [facility]. Per pharmacist, Rx was filled on 10/21/24 and delivered to pt on 10/24/24. Current script does not have any refills. Will send to PCP to review refill request going forward. * Telephone Encounter - Veronica La - 11/18/2024 10:03 AM EST Tc from Aneta in regard below. [facility] pharmacy haven't receipt script. Any questions contact Aneta: [phone] * Telephone Encounter - Shayla Zamarripa LPN - 11/11/2024 9:33 AM EST Script was sent to [facility] on 10/21/24 #30. * Telephone Encounter - Veronica La - 11/11/2024 9:16 AM EST TC from pt requesting medication refill. Medications needing refill : rivaroxaban (Xarelto) 20 MG tablet To be sent to: [facility] - [place], [place] - [address] documented in this encounter Plan of Treatment Upcoming Encounters Date Type Department Care Team (Late st Contact Info) Description 09/22/2025 2:00 PM EST Telemedicine [facility] MEDICINE [address] [place] [address] [phone] Angy De La Fuente PharmD [address] [address] [phone] documented as of this encounter Goals Goal [...] documented as of this encounter Care Teams Inorganic Chemical Technician Relationship Specialty Start Date End Date Nicole Montoya MD [address] [address] [phone] PCP - General Family Medicine 11/16/18 Angy De La Fuente, PharmD [address] [place] [address] [phone] Pharmacist Internal Medicine 04/01/24 Juan Carlos Ma MD [address] [place] [address] Vascular Surgery 10/05/24 Fouzia Wu [facility] Registered Public Health Nurse Traffic Sign Erection Supervisor 09/11/23 [facility] 07/04/16 documented as of this encounter
--- OUTSIDE RECORDS SUMMARY | 2025-09-07 14:30 | XMS_ITS | Encounter Summary ---
Author Organization [employer] Address [address] [facility] 7t [place] [address] Care Team Providers Care Bowl Attendant Name Role Phone Lindsay, Nicole HERNANDEZ Primary Care Provider [phone]- [phone] Angy De La Fuente PharmD Unavailable Juan Carlos Ma MD Unavailable [phone] Reason for Visit * Reason Comments Med Refill Encounter Details Date Type Department Care Team (Late st Contact Info) Description 05/09/2024 Refill [facility] [address] [place] [address] Donita Cao MD [address] [place] [address] S/P amputation of lesser toe, left (CMS/HCC); [...] Info) Description 09/22/2025 2:00 PM EST Telemedicine [facility] MEDICINE [address] [place] [address] Angy De La Fuente, PharmD [address] [place] [address] documented as of this encounter Goals Goal [...] documented as of this encounter Care Teams Bowl Attendant Relationship Specialty Start Date End Date Nicole Montoya MD [address] [place] [address] PCP - General Family Medicine 11/16/18 Angy De La Fuente, JerseyD [address] [place] [address] Pharmacist Internal Medicine 04/01/24 Juan Carlos Ma MD [address] [place] [address] Vascular Surgery 10/05/24 Fouzia Wu [facility] Infrastructure Developer Souvenir Assembler 09/11/23 [facility] 07/04/16 documented as of this encounter
--- OUTSIDE RECORDS SUMMARY | 2025-09-07 14:30 | XMS_ITS | Encounter Summary ---
Author Organization [employer] Address [address] [facility] 7t [place] [address] Care Team Providers Care Toll Gate Keeper Name Role Phone Nicole Montoya MD Primary Care Provider [phone]- [phone] Angy De La Fuente PharmD Unavailable Juan Carlos Ma MD Unavailable [phone] Reason for Visit * Reason Comments Med Refill Encounter Details Date Type Department Care Team (Late st Contact Info) Description 09/26/2024 Refill [facility] [address] [place], [place] [phone] Nicole Montoya MD [address] [place] [address] Type 2 diabetes mellitus with diabetic peripheral angiopathy without gangrene, with long-term current use of insulin ([facility]) Social History Tobacco Use Types Packs/Day Years [...] 09/22/2025 2:00 PM EST Telemedicine [facility] MEDICINE [address] [place] [address] Angy De La Fuente PharmD [address] [place] [address] documented as of this encounter Goals Goal Patient Goal Type Associated Problems Recent Progress Patient-Stated? Author Blood Pressure < 140/90 Blood Pressure 139/60(2024 10:37 AM EDT) No Angy Gutierrez PharmD Hemoglobin A1c < 8 Result Component 9(09/07/2025 11:30 AM EDT) No Angy Gutierrez PharmD documented as of this encounter Visit Diagnoses Diagnosis Type 2 diabetes mellitus with diabetic peripheral angiopathy without gangrene, with long-term current use of insulin (HCC) documented in this encounter Additional Health Concerns Assessment Noted Time PHQ-9 Depression Total Score: 15 024 1:58 PM EDT documented as of this encounter Care Teams Toll Gate Keeper Relationship Specialty Start Date End Date Nicole Montoya MD [address] [place] [address] PCP - General Family Medicine 11/16/18 Angy De La Fuente, PharmD [address] [place] [address] Pharmacist Internal Medicine 04/01/24 Juan Carlos Ma MD [address] [place] [address] Vascular Surgery 10/05/24 Fouzia Wu [facility] Direct Marketing Executive Housing Management Officer 09/11/23 [facility] 07/04/16 documented as of this encounter
--- OUTSIDE RECORDS SUMMARY | 2025-09-07 14:30 | XMS_ITS | Encounter Summary ---
Author Organization [employer] Address [address] [facility] 7t [place] [address] Care Team Providers Care Quality Control Engineering Technician Name Role Phone Nicole Montoya MD Primary Care Provider +- [phone] Angy De La Fuente PharmD Unavailable [phone] Juan Carlos Ma MD Unavailable [phone] Reason for Visit * Reason Onset Date Comments Nurse Triage 10/24/2024 Encounter Details Date Type Department Care Team (Late st Contact Info) Description 10/24/2024 Telephone [facility] MEDICINE [address] [place], [place] [phone] Nicole Montoya MD [address] [place], [place] [phone] Nurse Triage Social History Tobacco Use Types [...] encounter Miscellaneous Notes * Telephone Encounter - Maira JacksonARNULFO - 10/24/2024 2:54 PM EST Triage call returned with BLS # [id number] Karen. Patient reports severe upper abdominal pain x weeks. Has nausea and vomiting but no noted blood in vomit. Reports she has no medication other than her insulin as medications not ordered by home care Identifies home care as Annetta Gilliland RN. Patient sobbing on the phone begging only to speak to PCP who is not available at time of call or tomorrow. Patient reports pain is upper abdomen and is constant. Disposition reviewed and patient declines ED and refuses 911 activation because if they come to her home she is unable to leave disabled Daughter alone. Daughter listed as Ceci lives in [place] now. Patient advised of [facility] hours but directed to ED for care. Patient aware and wantsonly message sent to PCP. Advised patient I would call Annetta Cornell now and follow with Pharmacy and Team. Alsen DEZ Mcghee reports Protonix last filled 09/28/24 for 30 day supply and patient receives medications in pill lock boxes.Patient with recent VNA note on chart. Annetta care contacted and phone answered in Nursing by Ozzy Gilliland. Per Ozzy Aneta is not on today and that another Nurse will be going to the home this afternoon. Ozzy made aware of patient status with constant abdominal pain and report of no medication. Annetta made aware that patient declined ED and or 911 evaluation. Forwarded to PCP and team as FYI to follow up PRN Protocol Used: Abdominal Pain - Female (Adult) Protocol-Based Disposition: Go to ED Now Positive Triage Question: * Severe abdominal pain (e.g., excruciating) * All higher-acuity triage questions were negative * Telephone Encounter - Tyson Chambers - 10/24/2024 2:27 PM EST Symptom: Abdominal Pain - Female - Not Outcome: Talk to a nurse or provider within 15 minutes Reason: Severe pain now Portuguese Speaker (Accepted Accounting Practice Manager) documented in this encounter Plan of Treatment Upcoming Encounters Date Type Department Care Team (Late st Contact Info) Description 09/22/2025 2:00 PM EST Telemedicine [facility] MEDICINE [address] [place] [address] Oscars-Janey Townsendsa, PharmD [address] [place] [address] documented as of this encounter Goals Goal [...] documented as of this encounter Care Teams Quality Control Engineering Technician Relationship Specialty Start Date End Date Nicole Montoya MD [address] [place] [address] PCP - General Family Medicine 11/16/18 Angy De La Fuente, PharmD [address] [place] [address] Pharmacist Internal Medicine 04/01/24 Juan Carlos Ma MD [address] [place] [address] Vascular Surgery 10/05/24 Fouzia Wu [facility] It Systems Administrator Tube Former Operator 09/11/23 [facility] 07/04/16 documented as of this encounter
--- OUTSIDE RECORDS SUMMARY | 2025-09-07 14:30 | XMS_ITS | Encounter Summary ---
Author Organization [employer] Address 75 [facility] 7t [place] [address] Care Team Providers Care Cell Operation Supervisor Name Role Phone Nicole Montoya MD Primary Care Provider +- [phone] Angy De La Fuente PharmD Unavailable Juan Carlos Ma MD Unavailable [phone] Encounter Details Date Type Department Care Team (Late st Contact Info) Description 11/21/2024 Orders Only [facility] [address] [place], [place] [phone] Nicole Montoya MD 230 [place] [address] S/P amputation of lesser toe, left (CMS/HCC); [...] is your housing situation today? I have rsoendo bautista 03/09/[address] you [...] Info) Description 09/22/2025 2:00 PM EST Telemedicine [facility] [address] [place] [address] Angy De La Fuente PharmD 230 [place] [address] documented as of this encounter Goals Goal [...] documented as of this encounter Care Teams Cell Operation Supervisor Relationship Specialty Start Date End Date Nicole Montoya MD [address] [place] [address] PCP - General Family Medicine 11/16/18 Angy De La Fuente, JerseyD [address] [place] [address] Pharmacist Internal Medicine 04/01/24 Juan Carlos Ma MD [address] [place] [address] Vascular Surgery 10/05/24 Fouzia Wu [facility] Casing In Line Setter Application Designer 09/11/23 [facility] 07/04/16 documented as of this encounter
--- OUTSIDE RECORDS SUMMARY | 2025-09-07 14:30 | XMS_ITS | Encounter Summary ---
Author Organization [employer] Address 75 [facility] 7t [place] [address] Care Team Providers Care Clerical Adviser Name Role Phone Nicole Montoya MD Primary Care Provider [phone]- [phone] Angy De La Fuente PharmD Unavailable Juan Carlos Ma MD Unavailable [phone] Reason for Visit * Reason Onset Date Comments Med Refill 09/04/2023 Encounter Details Date Type Department Care Team (Late st Contact Info) Description 09/04/2023 Telephone [facility] 230 [place], [place] [phone] Nicole Montoya MD 230 [place], [place] [phone] Med Refill Social History Tobacco Use Types [...] encounter Miscellaneous Notes * Telephone Encounter - Shayla Zamarripa LPN - 09/04/2023 1:06 PM EDT Medication was sent to [facility] on 06/15/23 #90 with 1 refill. * Telephone Encounter - Amador Vazquez - 09/04/2023 12:31 PM EDT Aneta at [facility] requesting a med refill for medication aspirin (Aspirin Low Dose) 81 MG EC tablet. PCP Dr. Montoya documented in this encounter Plan of Treatment Upcoming Encounters Date Type Department Care Team (Late st Contact Info) Description 09/22/2025 2:00 PM EST Telemedicine [facility] [address] [place] [address] Angy De La Fuente, PharmD 230 [place] [address] documented as of this encounter Visit Diagnoses Not on filedocumented in this encounter Additional Health Concerns Assessment Noted Time PHQ-9 Depression Total Score: 0 02/12/20 9:10 AM EDT documented as of this encounter Care Teams Clerical Adviser Relationship Specialty Start Date End Date Nicole Montoya MD 230 [place] [address] PCP - General Family Medicine 11/16/18 Angy De La Fuente, Loretta 230 [place] [address] Pharmacist Internal Medicine 04/01/24 Juan Carlos Ma MD 230 [place] [address] Vascular Surgery 10/05/24 Fouzia Wu [facility] Helper/Driver Hair Or Beauty Salon Manager 09/11/23 [facility] Care 07/04/16 documented as of this encounter
--- OUTSIDE RECORDS SUMMARY | 2025-09-07 14:30 | XMS_ITS | Encounter Summary ---
Author Organization [employer] Address 75 [facility] 7t [place] [address] Care Team Providers Care Cathode Builder Name Role Phone Nicole Montoya MD Primary Care Provider +- [phone] Angy De La Fuente PharmD Unavailable [phone] Juan Carlos Ma MD Unavailable [phone] Encounter Details Date Type Department Care Team (Late st Contact Info) Description 09/19/2024 Orders Only [facility] MEDICINE 230 [place] [address] Angy De La Fuente, PharmD 230 [place] [address] Social History Tobacco Use Types Packs/Day Years [...] the past 12 months, has t he [employer], gas, oil or water company threatened to [...] Info) Description 09/22/2025 2:00 PM EST Telemedicine [facility] MEDICINE 230 [place] [address] Angy De La Fuente, PharmD 230 [place] [address] documented as of this encounter Goals Goal Patient Goal Type Associated Problems Recent Progress Patient-Stated? Author Blood Pressure < 140/90 Blood Pressure 139/60(2024 10:37 AM EDT) No Piers-Milal lupis, Angy, PharmD Hemoglobin A1c < 8 Result Component 9(09/07/2025 11:30 AM EDT) No Piers-Gambl eJaneysa, PharmD documented as of this encounter Visit Diagnoses Not on filedocumented in this encounter Additional Health Concerns Assessment Noted Time PHQ-9 Depression Total Score: 15 024 1:58 PM EDT documented as of this encounter Care Teams Cathode Builder Relationship Specialty Start Date End Date Nicole Montoya MD 230 [place] [address] PCP - General Family Medicine 11/16/18 Angy De La Fuente PharmD 230 [place] [address] Pharmacist Internal Medicine 04/01/24 Juan Carlos Ma MD 230 [place] [address] Vascular Surgery 10/05/24 Fouzia Wu ICP Drying Rack Changer Net Software Developer 09/11/23 [facility] Care 07/04/16 documented as of this encounter
--- OUTSIDE RECORDS SUMMARY | 2025-09-07 14:30 | XMS_ITS | Encounter Summary ---
Author Organization [employer] Address 75 [facility] 7t [place] [address] Care Team Providers Care Bone Worker Name Role Phone Nicole Montoya MD Primary Care Provider [phone]- [phone] Angy De La Fuente PharmD Unavailable Juan Carlos Ma MD Unavailable [phone] Reason for Visit * Reason Onset Date Comments Hospital Follow-up 02/10/2024 Encounter Details Date Type Department Care Team (Late st Contact Info) Description 02/10/2024 Telephone [facility] 230 [place], [place] [phone] Nicole Montoya MD 230 [place], [place] [phone] Hospital Follow-up Social History Tobacco Use Types Packs/Day Years [...] encounter Miscellaneous Notes * Telephone Encounter - Dar Cedillo RN - 02/11/2024 4:16 PM EDT NANCYI Pt. Was admitted at [facility]. * Telephone Encounter - Dar Cedillo RN - 02/11/2024 4:13 PM EDT T/C to pt. Through [employer] worm farmer id- [id number] , pt. Re-schedule for HDF on 02/19/2024 for diagnosis of Liver lesion, Anemia and abdominal pain. Pt. Was admitted on 01/31 and discharge on 02/02/2024.Discharge summery in pt.'s chart. * Telephone Encounter - Dar Cedillo RN - 02/11/2024 3:45 PM EDT [facility] glargine (Lantus SoloStar) 100 UNIT/ML pen and discontinued insulin aspart (NovoLOG FLEXPEN) 100 UNIT/ML pen. * Telephone Encounter - Tyson Chambers - 02/10/2024 10:06 AM EDT Tc from [place] with [facility] requesting to reschedule HDF appt for 02/04. Please contact Aneta at [phone]. Aneta also wanted to leave an FYI letting pcp know [facility] reduced her insulin glargine (Lantus SoloStar) 100 UNIT/ML pen and discontinued insulin aspart (NovoLOG FLEXPEN) 100 UNIT/ML pen. documented in this encounter Plan of Treatment Upcoming Encounters Date Type Department Care Team (Late st Contact Info) Description 09/22/2025 2:00 PM EST Telemedicine [facility] 230 [place] [address] Angy De La Fuente PharmD [address] [place] [address] documented as of this encounter Visit Diagnoses Not on filedocumented in this encounter Additional Health Concerns Assessment Noted Time PHQ-9 Depression Total Score: 0 02/12/20 9:10 AM EDT documented as of this encounter Care Teams Bone Worker Relationship Specialty Start Date End Date Nicole Montoya MD 230 [place] [address] PCP - General Family Medicine 11/16/18 Angy De La Fuente, JerseyD [address] [place] [address] Pharmacist Internal Medicine 04/01/24 Juan Carlos Ma MD [address] [place] [address] Vascular Surgery 10/05/24 Fouzia Wu [facility] Day Haul Or Farm Charter Bus Driver Video Effects Editor 09/11/23 [facility] 07/04/16 documented as of this encounter
--- OUTSIDE RECORDS SUMMARY | 2025-09-07 14:31 | XMS_ITS | Encounter Summary ---
Author Organization [employer] Address 75 [facility] 7t [place] [address] Care Team Providers Care Host Hostess Name Role Phone Nicole Montoya MD Primary Care Provider [phone] Angy De La Fuente PharmD Unavailable [phone] Juan Carlos Ma MD Unavailable [phone] Reason for Visit * Reason Onset Date Comments Medication Question 09/08/2024 Encounter Details Date Type Department Care Team (Late st Contact Info) Description 09/08/2024 Telephone [facility] [address] [place] [address] Nicole Montoya MD [address] [place] [address] Medication Question Social History Tobacco Use Types [...] the past 12 months, has t he [employer], gas, oil or water [employer] threatened to shut off services in your [...] Telephone Encounter - Cheyenne Echavarria RN - 09/12/2024 10:24 AM EDT TC placed to Aneta with [facility] to notify that PCP is in agreement to starting the pt back on Novolog. The pt is to remain on the same dose of 10 units three times daily before meals. Per PCP request the medications Aspirin 81 mg and Metformin 1000 mg BID will be queued to PCP. * Telephone Encounter - Cheyenne Echavarria RN - 09/09/2024 11:51 AM EDT TC placed to Aneta with [facility] to review and go over the pt current medication list. Pt was discharged from [facility] [place] for UTI and AMS this week and the discharge paperwork has been scanned into the pt chart. Aneta did see the pt this morning and stated that she had two medications added at [facility] [place], Aspirin and Metformin 1000 mg BID. Pt will need new prescriptions for both new medications. The pt was taken off Novolog insulin aspart in the hospital but Aneta feels that the pt should be put back on this.Blood sugars are not well controlled and the pt does not follow a good diabetic diet. If PCP agreesthen the [facility] will continue to give this to the pt. Aneta will remind the pt of the upcoming HDF appt scheduled with Dr. Atwood on 09/14/24. The medications can be reconciled at this appt but if PCP agrees to starting pt back on Novolog then Aneta would like a call back. * Telephone Encounter - Noemi Oseguera - 09/08/2024 9:18 AM EDT Tc from [facility] with [facility] requesting a call back to go over some medication questions. Best contact # [phone]. documented in this encounter Plan of Treatment Upcoming Encounters Date Type Department Care Team (Late st Contact Info) Description 09/22/2025 2:00 PM EST Telemedicine [facility]ICINE 230 [place] [address] Angy De La Fuente PharmD [address] [place] [address] documented as of this encounter Goals Goal [...] documented as of this encounter Care Teams Host Hostess Relationship Specialty Start Date End Date Nicole Montoya MD [address] [place] [address] PCP - General Family Medicine 11/16/18 Angy De La Fuente, JerseyD [address] [place] [address] Pharmacist Internal Medicine 04/01/24 Juan Carlos Ma MD [address] [place] [address] Vascular Surgery 10/05/24 Fouzia Wu [facility] Cook Mess Mathematical Statistician 09/11/23 [facility] Care 07/04/16 documented as of this encounter
--- OUTSIDE RECORDS SUMMARY | 2025-09-07 14:31 | XMS_ITS | Encounter Summary ---
Author Organization [employer] Address 75 [facility] 7t [place] [address] Care Team Providers Care Hop Worker Name Role Phone Nicole Montoya MD Primary Care Provider [phone] Angy De La Fuente PharmD Unavailable [phone] Juan Carlos Ma MD Unavailable [phone] Reason for Visit * Reason Onset Date Comments Med Refill 07/19/2025 Encounter Details Date Type Department Care Team (Late st Contact Info) Description 07/19/2025 Telephone [facility] MEDICINE 230 [place], [place] [phone] Nicole Montoya MD 230 [place], [place] [phone] Med Refill Social History Tobacco Use Types [...] the past 12 months, has t he [employer], gas, oil or water company threatened to [...] Telephone Encounter - Shayla Zamarripa LPN - 07/19/2025 9:55 AM EDT Medication isn't prescribed by PCP. * Telephone Encounter - Tyson Chambers - 07/19/2025 9:32 AM EDT TC from pt requesting medication refill. Medications needing refill: aspirin (Aspirin Low Dose) 81 MG EC tablet To be sent to: [facility] [place] [place] - [id number] - [place] - [address] documented in this encounter Plan of Treatment Upcoming Encounters Date Type Department Care Team (Late st Contact Info) Description 09/22/2025 2:00 PM EST Telemedicine [facility] MEDICINE [address] [place] [address] Angy De La Fuente PharmD [address] [place] [address] documented as of this encounter Goals Goal [...] documented as of this encounter Care Teams Hop Worker Relationship Specialty Start Date End Date Nicole Montoya MD [address] [place] [address] PCP - General Family Medicine 11/16/18 Angy De La Fuente, JerseyD [address] [place] [address] Pharmacist Internal Medicine 04/01/24 Juan Carlos Ma MD [address] [place] [address] Vascular Surgery 10/05/24 Fuozia Wu [facility] Quality Improvement Consultant Fbi Sharpshooter 09/11/23 [facility] 07/04/16 documented as of this encounter
--- OUTSIDE RECORDS SUMMARY | 2025-09-07 14:31 | XMS_ITS | Encounter Summary ---
Author Organization [employer] Address 75 [facility] 7t [place] [address] Care Team Providers Care Kitchen Steward Name Role Phone Nicole Montoya MD Primary Care Provider [phone]- [phone] Angy De La Fuente PharmD Unavailable Juan Carlos Ma MD Unavailable [phone] Reason for Visit * Reason Onset Date Comments FYI 08/12/2024 Encounter Details Date Type Department Care Team (Late st Contact Info) Description 08/12/2024 Telephone [facility] 230 [place], [place] [phone] Nicole Montoya MD 230 [place], [place] [phone] FYI Social History Tobacco Use Types Packs/Day Years [...] encounter Miscellaneous Notes * Telephone Encounter - Mikel Rachel - 08/12/2024 9:44 AM EDT Tc from [facility] with [facility] informing that pt informs she does not need services and case will closed. documented in this encounter Plan of Treatment Upcoming Encounters Date Type Department Care Team (Late st Contact Info) Description 09/22/2025 2:00 PM EST Telemedicine [facility] 230 [place] [address] Angy De La Fuente PharmD [address] [place] [address] documented as of this encounter Goals Goal [...] documented as of this encounter Care Teams Kitchen Steward Relationship Specialty Start Date End Date Nicole Montoya MD [address] [place] [address] PCP - General Family Medicine 11/16/18 Angy De La Fuente, PharmD [address] [place] [address] Pharmacist Internal Medicine 04/01/24 Juan Carlos Ma MD [address] [place] [address] Vascular Surgery 10/05/24 Fouzia Wu [facility] Ssis Ssrs Developer Poultry Picking Machine Tender 09/11/23 [facility] 07/04/16 documented as of this encounter
--- OUTSIDE RECORDS SUMMARY | 2025-09-07 14:31 | XMS_ITS | Encounter Summary ---
Author Organization [employer] [facility] Address [address] [place] [address] 7t [place] [address] Care Team Providers Care Receiving Lead Name Role Phone Nicole Montoya MD Primary Care Provider [phone] Angy De La Fuente PharmD Unavailable [phone] Juan Carlos Ma MD Unavailable [phone] Encounter Details Date Type Department Care Team (Late Contact Info) Description 12/03/2022 Abstract [facility] MEDICINE [address] [place] [address] [phone] Nicole Montoya MD 230 [place], [place] [phone] Social History Tobacco Use Types Packs/Day Years [...] 09/22/2025 2:00 PM EST Telemedicine [facility]INE [address] [place] [address] [phone] Angy De La Fuente, PharmD 230 [place] [address] documented as of this encounter Procedures Procedure Name Priority Date/Time Associated Diagnosis Comments HPV HIGH RISK PCR Routine 04/09/2017 12: 00 AM EDT HM MAMMOGRAPHY Routine 04/09/2017 PAP SMEAR Routine 04/09/2017 12:00 AM EDT documented in this encounter Results * HPV High Risk PCR (04/09/2017 12:00 AM EDT) Swab Cervical swab / Unknown Historical Provider LAB MICROBIOLOGY - GENERA L ORDERABLES Final Result IMAGING * Pap Smear (04/09/2017 12:00 AM EDT) Swab Historical Provider MD LAB CYTOLOGY ORDERABLES F inal Result Performing Organization Address City/[facility]/ZIP Co de Phone Number IMAGING * Mammography (04/09/2017) HM Mammogram BIRADS 0 Anatomical Region Laterality Modality Other Historical Provider HEALTH MAINTENANCE Final Result documented in this encounter Visit Diagnoses Not on filedocumented in this encounter Care Teams Receiving Lead Relationship Specialty Start Date End Date Nicole Montoya MD [address] [place] [address] PCP - General Family Medicine 11/16/18 Angy De La Fuente, JerseyD [address] [place] [address] Pharmacist Internal Medicine 04/01/24 Juan Carlos Ma MD [address] [place] [address] Vascular Surgery 10/05/24 Fouzia Wu ICP Yard Attendant Wet Process Technician 09/11/23 [facility] Care 07/04/16 documented as of this encounter
--- OUTSIDE RECORDS SUMMARY | 2025-09-07 14:31 | XMS_ITS | Encounter Summary ---
Author Organization [employer] Address 75 [facility] 7t [place] [address] Care Team Providers Care Steward/Stewardess Tourist Class Name Role Phone Nicole Montoya MD Primary Care Provider [phone] Angy De La Fuente PharmD Unavailable [phone] Francisco J Ma MD Unavailable [phone] Reason for Visit * Reason Onset Date Comments Med Refill 07/21/2025 Encounter Details Date Type Department Care Team (Late st Contact Info) Description 07/21/2025 Telephone [facility] MEDICINE 230 [place], [place] [phone] Nicole Montoya MD 230 [place], [place] [phone] Med Refill Social History Tobacco Use Types [...] Telephone Encounter - Shayla Zamarripa LPN - 07/21/2025 9:23 AM EDT Medication prescribed by FRANCISCO J [place] * Telephone Encounter - Aleyda Crenshaw - 07/21/2025 9:17 AM EDT TC from pt requesting medication refill. Medications needing refill : - aspirin (Aspirin Low Dose) 81 MG EC tablet To be sent to: - [facility] - [place] - [id number] - [place] - [address] documented in this encounter Plan of Treatment Upcoming Encounters Date Type Department Care Team (Late st Contact Info) Description 09/22/2025 2:00 PM EST Telemedicine [facility] MEDICINE 230 [place], [place] [phone] Angy De La Fuente, PharmD 230 [place] [address] documented as of this encounter Goals Goal [...] documented as of this encounter Care Teams Steward/Stewardess Tourist Class Relationship Specialty Start Date End Date Nicole Montoya MD [address] [place] [address] PCP - General Family Medicine 11/16/18 Angy De La Fuente, PharmD [address] [place] [address] Pharmacist Internal Medicine 04/01/24 Francisco J Ma MD [address] [place] [address] Vascular Surgery 10/05/24 Fouzia Wu [facility] Take Away Worker Crate Tier 09/11/23 [facility] Care 07/04/16 documented as of this encounter
--- OUTSIDE RECORDS SUMMARY | 2025-09-07 14:31 | XMS_ITS | Encounter Summary ---
Author Organization [employer] Address 75 [facility] 7t [place] [address] Care Team Providers Care Cdl Team Truck Driver Name Role Phone Nicole Montoya MD Primary Care Provider [phone]- [phone] Angy De La Fuente PharmD Unavailable Juan Carlos Ma MD Unavailable [phone] Encounter Details Date Type Department Care Team (Late st Contact Info) Description 06/13/2024 Telephone [facility] 230 [place], [place] [phone] Nicole Montoya MD 230 [place] [address] Social History Tobacco Use Types Packs/Day Years [...] the past 12 months, has t he [employer], gas, oil or water company threatened to [...] Info) Description 09/22/2025 2:00 PM EST Telemedicine [facility] 230 [place] [address] Angy De La Fuente PharmD [address] [place] [address] documented as of this encounter Goals Goal Patient Goal Type Associated Problems Recent Progress Patient-Stated? Author Blood Pressure < 140/90 Blood Pressure 139/60(2024 10:37 AM EDT) No Piers-Gambl lupis, Angy, PharmD Hemoglobin A1c < 8 Result Component 9(09/07/2025 11:30 AM EDT) No Oscars-Gambl Janey baughsa, PharmD documented as of this encounter Visit Diagnoses Not on filedocumented in this encounter Additional Health Concerns Assessment Noted Time PHQ-9 Depression Total Score: 15 024 1:58 PM EDT documented as of this encounter Care Teams Cdl Team Truck Driver Relationship Specialty Start Date End Date Nicole Montoya MD 230 [place] [address] PCP - General Family Medicine 11/16/18 Angy De La Fuente, Loretta [address] [place] [address] Pharmacist Internal Medicine 04/01/24 Juan Carlos Ma MD 230 [place] [address] Vascular Surgery 10/05/24 Fouzia Wu [facility] Stone Gang Sawyer Patching Machine Operator 09/11/23 [facility] Care 07/04/16 documented as of this encounter
--- OUTSIDE RECORDS SUMMARY | 2025-09-07 14:31 | XMS_ITS | Encounter Summary ---
Author Organization [employer] Address 75 [facility] 7t [place] [address] Care Team Providers Care Fermenter Champagne Name Role Phone Nicole Montoya MD Primary Care Provider +- [phone] Angy De La Fuente PharmD Unavailable [phone] Juan Carlos Ma MD Unavailable [phone] Encounter Details Date Type Department Care Team (Late st Contact Info) Description 07/05/2024 Orders Only [facility] MEDICINE [address] [place], [place] [phone] Rema Bailey, ANP [address] [place] [address] Social History Tobacco Use Types Packs/Day Years [...] the past 12 months, has t he [employer], gas, oil or water company threatened to [...] Info) Description 09/22/2025 2:00 PM EST Telemedicine [facility] MEDICINE [address] [place] [address] Angy De La Fuente PharmD [address] [place] [address] documented as of this encounter Goals Goal Patient Goal Type Associated Problems Recent Progress Patient-Stated? Author Blood Pressure < 140/90 Blood Pressure 139/60(2024 10:37 AM EDT) No Piers-Teresita baugh, Angy, PharmD Hemoglobin A1c < 8 Result Component 9(09/07/2025 11:30 AM EDT) No Oscars-Janey Hallsa, PharmD documented as of this encounter Visit Diagnoses Not on filedocumented in this encounter Additional Health Concerns Assessment Noted Time PHQ-9 Depression Total Score: 15 024 1:58 PM EDT documented as of this encounter Care Teams Fermenter Champagne Relationship Specialty Start Date End Date Nicole Montoya MD [address] [place] [address] PCP - General Family Medicine 11/16/18 Angy De La Fuente, Loretta [address] [place] [address] Pharmacist Internal Medicine 04/01/24 Juan Carlos Ma MD [address] [place] [address] Vascular Surgery 10/05/24 Fouzia Wu [facility] Kiln Operator Vendette 09/11/23 [facility] Care 07/04/16 documented as of this encounter
--- OUTSIDE RECORDS SUMMARY | 2025-09-07 14:31 | XMS_ITS | Encounter Summary ---
Author Organization [employer] Address [address] [facility] 7t [place] [address] Care Team Providers Care Manufacturing Supervisor 2Nd Shift Name Role Phone Nicole Montyoa MD Primary Care Provider [phone]- [phone] Angy De La Fuente PharmD Unavailable [phone] Juan Carlos Ma MD Unavailable [phone] Reason for Visit * Reason Onset Date Comments triage 02/13/2023 Encounter Details Date Type Department Care Team (Late st Contact Info) Description 02/13/2023 Telephone [facility] [address] [place], [place] [phone] Nicole Montoya MD [address] [place], [place] [phone] triage Social History Tobacco Use Types Packs/Day Years [...] not to disclose 2021 10:16 AM EDT COVID-19 Exposure Response Date Recorded In the last 10 days, have yo u been in contact with someone who was confirmed or suspected to have Coronavirus/COVID-19? No / Unsure 02/11/2023 8:45 AM EDT documented as of this encounter Miscellaneous Notes * Telephone Encounter - Renuka Benito RN - 02/13/2023 12:21 PM EDT Call to Ana Rosa Chambers, reports having low blood sugar fasting 54mg/dL. Per pt was advised to eat peanut butter with saltine crackers. Pt not at home to recheck BS. Pt states was having headache earlier. Per pt on her way to drink coffee and eat lunch. Pt advised to try to eat a higher protein meal to level out sugar. Pt advised to check BS when arrives home and if <70mg.dL . To seek ER if having dry mouth, dizziness or confusion. Pt agrees. Will send to team to review with PCP and further advise patient of any changes to POC. Protocol Used: Diabetes - Low Blood Sugar (Adult) Protocol-Based Disposition: Discuss with PCP and Callback by Nurse Today Video visit offer not recorded Positive Triage Question: * Morning (before breakfast) blood glucose < 80 mg/dL (4.4 mmol/L) and more than once in past week * All higher-acuity triage questions were negative Care Advice Discussed: * Reassurance and Education - Low Blood Sugar * Low Blood Sugar (Hypoglycemia) - Definition * Low Blood Sugar - Treatment - Eat Some (15-20 grams) Sugar Now * Measure and Record Your Blood Glucose * Reasons To Call Back - Symptoms do not improve within 30 minutes - Sleepiness or confusion occur - You become worse * Hypoglycemia - Prevention * Daily Blood Glucose Goals * Measure and Record Your Blood Glucose * Reasons To Call Back - Morning blood glucose under 80 mg/dL (4.4 mmol/L) more than once in a week - You become worse * Telephone Encounter - Azeem Smart - 02/13/2023 10:03 AM EDT Symptom: Low Blood Sugar - Caller Reports Outcome: Schedule an urgent appointment (within 1 hour) or talk to a nurse or provider soon Reason: Getting worse The caller accepted this outcome documented in this encounter Plan of Treatment Upcoming Encounters Date Type Department Care Team (Late st Contact Info) Description 09/22/2025 2:00 PM EST Telemedicine [facility] [address] [place] [phone] Angy De La Fuente, PharmD [address] [place] [phone] documented as of this encounter Visit Diagnoses Not on filedocumented in this encounter Additional Health Concerns Assessment Noted Time PHQ-9 Depression Total Score: 0 02/12/20 23 9:10 AM EDT documented as of this encounter Care Teams Manufacturing Supervisor 2Nd Shift Relationship Specialty Start Date End Date Nicole Montoya MD [address] [place] [phone] PCP - General Family Medicine 11/16/18 Angy De La Fuente, PharmD [address] [place] [phone] Pharmacist Internal Medicine 04/01/24 Juan Carlos Ma MD [address] [place] [address] Vascular Surgery 10/05/24 Fouzia Wu [facility] Plastics Spreading Machine Operator Lacquer Pin Press Operator 09/11/23 [facility] Care 07/04/16 documented as of this encounter
--- OUTSIDE RECORDS SUMMARY | 2025-09-07 14:31 | XMS_ITS | Encounter Summary ---
Author Organization [employer] Address 75 [facility] 7t [place] [address] Care Team Providers Care Supervisor General Name Role Phone Nicole Montoya MD Primary Care Provider [phone] Angy De La Fuente PharmD Unavailable [phone] Juan Carlos Ma MD Unavailable [phone] Reason for Visit * Reason Onset Date Comments Durable Medical Equipment 08/15/2025 DME: W heelchair Accesories Encounter Details Date Type Department Care Team (Late st Contact Info) Description 08/15/2025 Telephone [facility] [address] [place], [place] [phone] Nicole Montoya MD [address] [place], [place] [phone] Durable Medical Equipment (DME: Wheelchair Accesories) Social History Tobacco Use Types Packs/Day Years [...] encounter Miscellaneous Notes * Telephone Encounter - Pita Chambers - 09/04/2025 4:08 PM EDT DME for requested items was generated and sent to [employer] via FAX with supporting documenation. Confirmation was uploaded to Media. * Telephone Encounter - Crystal Chávez - 08/18/2025 3:52 PM EDT Pharmacy [facility] attempted outreach call for a MTM appointment however unable to reach pt. LVM for patient to contact Crystal Chávez [phone]. * Telephone Encounter - Todd Espinoza - 08/15/2025 10:19 AM EDT Tc from [facility] with [facility] requesting: Anti-tippers for wheel chair Elevated foot rest documented in this encounter Plan of Treatment Upcoming Encounters Date Type Department Care Team (Late st Contact Info) Description 09/22/2025 2:00 PM EST Telemedicine [facility] [address] [place] [address] Angy De La Fuente PharmD [address] [place] [address] documented as of this encounter Goals Goal [...] documented as of this encounter Care Teams Supervisor General Relationship Specialty Start Date End Date Nicole Montoya MD [address] [place] [phone] PCP - General Family Medicine 11/16/18 Angy De La Fuente, PharmD [address] [place] [phone] Pharmacist Internal Medicine 04/01/24 Juan Carlos Ma MD [address] [place] [phone] Vascular Surgery 10/05/24 Fouzia Wu [facility] Certified Registered Nurse Practitioner Coroner Technician 09/11/23 [facility] Care 07/04/16 documented as of this encounter
--- OUTSIDE RECORDS SUMMARY | 2025-09-07 14:31 | XMS_ITS | Encounter Summary ---
Author Organization [employer] Address [address] [facility] 7t [place] [address] Care Team Providers Care Dry Can Tender Name Role Phone Nicole Montoya MD Primary Care Provider [phone] Angy De La Fuente PharmD Unavailable [phone] Juan Carlos Ma MD Unavailable [phone] Reason for Visit * Reason Onset Date Comments Durable Medical Equipment 09/08/2024 Encounter Details Date Type Department Care Team (Late st Contact Info) Description 09/08/2024 Telephone [facility] [address] [place] [address] Nicole Montoya MD [address] [place] [address] Durable Medical Equipment Social History Tobacco Use [...] the past 12 months, has t he [employer] gas, oil or water company threatened to [...] encounter Miscellaneous Notes * Telephone Encounter - Noemi Oseguera - 09/08/2024 2:23 PM EDT Tc from [facility] care requesting DME. Pull Up ( XL) documented in this encounter Plan of Treatment Upcoming Encounters Date Type Department Care Team (Late st Contact Info) Description 09/22/2025 2:00 PM EST Telemedicine [facility] [address] [place] [address] Angy De La Fuente PharmD [address] [place] [address] documented as of this encounter Goals Goal [...] documented as of this encounter Care Teams Dry Can Tender Relationship Specialty Start Date End Date Nicole Montoya MD [address] [place] [phone] PCP - General Family Medicine 11/16/18 Angy De La Fuente, PharmD [address] [place] [phone] Pharmacist Internal Medicine 04/01/24 Juan Carlos Ma MD [address] [place] [phone] Vascular Surgery 10/05/24 Fouzia Wu [facility] Cbx Operator Clinical Laboratory Scientist 09/11/23 [facility] Care 07/04/16 documented as of this encounter
--- OUTSIDE RECORDS SUMMARY | 2025-09-07 14:31 | XMS_ITS | Encounter Summary ---
Author Organization [employer] Address [address] [facility] 7t [place] [address] Care Team Providers Care Cyber Defense Incident Responder Name Role Phone Nicole Montoya MD Primary Care Provider [phone]- [phone] Angy De La Fuente PharmD Unavailable [phone] Juan Carlos Ma MD Unavailable [phone] Reason for Visit * Reason Onset Date Comments psychiatric orderly hours 08/31/2025 Encounter Details Date Type Department Care Team (Late st Contact Info) Description 08/31/2025 Telephone [facility] [address] [place], [place] [phone] Nicole Montoya MD [address] [place], [place] [phone] psychiatric orderly hours Social History Tobacco Use Types Packs/Day Years [...] with others, in a hotel, in a senior living, living outside on the street, on a [...] Encounter - Cheyenne Echavarria RN - 09/07/2025 11:55 AM EDT Please see PCP documentation regarding the pt request for more PRINT CONTROLLER hours through [employer]. Message was sent to the forms nurses to review. 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 Contact pt at [phone] documented in this encounter Plan of Treatment Upcoming Encounters Date Type Department Care Team (Late st Contact Info) Description 09/22/2025 2:00 PM EST Telemedicine [facility] [address] [place] [address] Angy De La Fuente PharmD [address] [place] [address] documented as of this encounter Goals Goal [...] documented as of this encounter Care Teams Cyber Defense Incident Responder Relationship Specialty Start Date End Date Nicole Montoya MD [address] [place] [phone] PCP - General Family Medicine 11/16/18 Angy De La Fuente, PharmD [address] [place] [address] Pharmacist Internal Medicine 04/01/24 Juan Carlos Ma MD [address] [place] [phone] Vascular Surgery 10/05/24 Fouzia Wu [facility] Steel Tester Primary Special Education Teacher 09/11/23 [facility] 07/04/16 documented as of this encounter
== END 2025-09-07 11:21 | disposition home or self-care (01) ==
LOC: HO.HHCL 11:20
PROVIDERS: PCP Family Medicine; Visit Provider Family Medicine
DX: E11.65 Type 2 diabetes mellitus with hyperglycemia (principal); E11.51 Type 2 diabetes mellitus with diabetic peripheral angiopathy without gangrene; D50.9 Iron deficiency anemia, unspecified; E55.9 Vitamin D deficiency, unspecified; E78.5 Hyperlipidemia, unspecified; Z79.4 Long term (current) use of insulin
CPT/HCPCS: 36415; 80053; 80061; 80076; 82248; 82306; 82607; 82728; 82746; 83036; 83540; 84443; 85025